=== PATIENT | female | born 1945 | race Caucasian/White ===

== ENCOUNTER 2017-04-08 13:02 | Inpatient (IN) | payer MEDICARE ==
[2017-04-08] VITALS (20 sets, daily range): BP systolic 88–202; BP diastolic 53–108; PULSE 85–171; RESP 16–24; TEMP 98.8; O2SAT 88–100
[~2017-04-08] VITALS: Ht 160 cm; Wt 57.2 kg
[2017-04-08] MEDS ORDERED: methylPREDNISolone SOD SUCC 125 MG/2 ML VIAL IV PUSH ONE (13:15)
[2017-04-08] MEDS: RESP: ALBUTEROL 2.5 MG/IPRATROPIUM 0.5 MG NEB (SCH) INH ×5 (13:15→19:26)
[2017-04-08] MEDS ORDERED: SODIUM CHLORIDE 0.9% FLUSH 10 ML FLUSH IVF PRN (13:15)
[2017-04-08] MEDS ORDERED: SUCCINYLCHOLINE CHLORIDE 100 MG/5 ML SYRINGE IV PUSH ONE (13:15)
[2017-04-08] MEDS ORDERED: ETOMIDATE 20 MG/10 ML VIAL IV PUSH ONE (13:15)
--- NOTE | 2017-04-08 13:15 | PD ---
HPI Chief Complaint: Respiratory Distress Time Seen by Provider: 13:06 Travel History International Travel<30 days: No Contact w/Intl Traveler<30days: No Traveled to known affect area: No History of Present Illness HPI The patient is approximately a 72-year-old female who presents to the emergency department via EMS for shortness of breath. EMS states they received a call for shortness of breath and when they arrived the patient was tripoding with audible wheezing. They state when they place the patient in the ambulance she went unconscious any assisted ventilations with bag valve mask. Upon arrival the patient has her eyes closed, nonverbal, with agonal respirations. No further information is obtainable from the patient. EMS believes the patient has a history of COPD. [facility] Past Medical History Medical History: Unable to Obtain COPD: Yes Respiratory: Yes (COPD) Past Surgical History Surgical History: Unable to Obtain Social History Alcohol Use: No Tobacco Use: No Substance Use: No Allergies-Medications (Allergen,Severity, Reaction): Coded Allergies: No Allergy Information Available (Unverified , 04/08/17) Intubated Reported Meds & Prescriptions Reported Meds & Active Scripts Active Active Prescriptions or Reported Medications Unobtainable Review of Systems ROS Limitations: Clinical Condition, Altered Mental Status Except as stated in HPI: all other systems reviewed are Neg Respiratory: Positive: Shortness of Breath Physical Exam Narrative GENERAL: Eyes closed, nonverbal, 72-year-old female with agonal respirations. SKIN: Focused skin assessment warm/dry. HEAD: Atraumatic. Normocephalic. EYES: Pupils equal and round. 2 mm bilateral. ENT: No nasal bleeding or discharge. Upper dentures in place. NECK: Trachea midline. No JVD. CARDIOVASCULAR: Irregularly irregular, tachycardic with a heart rate in the 130s. Pacemaker/AICD in place left chest wall. RESPIRATORY: Agonal respirations with prolonged expiratory phase, wheezes, and rhonchi noted in the bases. GASTROINTESTINAL: Abdomen distended and tympanic. MUSCULOSKELETAL: No obvious deformities. No clubbing. No cyanosis. No edema. NEUROLOGICAL: Eyes closed, nonverbal, not following commands. PSYCHIATRIC: Unable to evaluate. Data Data Last Documented VS Vital Signs Date Time Temp Pulse Resp B/P (MAP) Pulse Ox O2 Delivery O2 Flow Rate FiO2 04/08/17 14:29 100 20 117/94 (102) 100 Ventilator 04/08/17 13:20 100 Orders Orders Complete Blood Count With Diff (04/08/17 13:06) Comprehensive Metabolic Panel (04/08/17 13:06) B-Type Natriuretic Peptide (04/08/17 13:06) Act Partial Throm Time (Ptt) (04/08/17 13:06) Prothrombin Time / Inr (Pt) (04/08/17 13:06) Magnesium (Mg) (04/08/17 13:06) Ckmb (Isoenzyme) Profile (04/08/17 13:06) Troponin I (04/08/17 13:06) Arterial Blood Gas (Abg) (04/08/17 13:06) Influenzae A/B Antigen (04/08/17 13:06) Blood Culture (04/08/17 13:06) Iv Access Insert/Monitor (04/08/17 13:06) Electrocardiogram (04/08/17 13:06) Ecg Monitoring (04/08/17 13:06) Oximetry (04/08/17 13:06) Oxygen Administration (04/08/17 13:06) Chest, Single Ap (04/08/17 13:06) Sodium Chloride 0.9% Flush (Ns Flush) (04/08/17 13:15) Methylprednisolone So Succ Inj (Solumedr (04/08/17 13:15) Albuterol-Ipratropium Neb (Duoneb Neb) (04/08/17 13:15) Propofol 1000 Mg/100 Ml Inj (Diprivan 10 (04/08/17 13:15) Etomidate Inj (Amidate Inj) (04/08/17 13:15) Succinylcholine Inj (Quelicin Inj) (04/08/17 13:15) Jarvis-Gastric Tube Insert/Mon (04/08/17 13:06) Urinary Catheter Insert/Apply (04/08/17 13:06) Lactic Acid (04/08/17 13:15) Diltiazem Inj (Cardizem Inj) (04/08/17 14:00) Diltiazem Inj (Cardizem Inj) (04/08/17 14:00) Sodium Chloride 0.9% Flush (Ns Flush) (04/08/17 14:00) Admit Order (Ed Use Only) (04/08/17 14:39) Labs Laboratory Tests Test 04/08/17 13:30 04/08/17 13:32 04/08/17 14:10 White Blood Count 10.5 TH/MM3 Red Blood Count 4.76 MIL/MM3 Hemoglobin 13.4 GM/DL Hematocrit 42.0 % Mean Corpuscular Volume 88.4 FL Mean Corpuscular Hemoglobin 28.3 PG Mean Corpuscular Hemoglobin Concent 32.0 % Red Cell Distribution Width 13.6 % Platelet Count 229 TH/MM3 Mean Platelet Volume 10.3 FL Neutrophils (%) (Auto) 60.3 % Lymphocytes (%) (Auto) 26.2 % Monocytes (%) (Auto) 11.1 % Eosinophils (%) (Auto) 1.1 % Basophils (%) (Auto) 1.3 % Neutrophils # (Auto) 6.3 TH/MM3 Lymphocytes # (Auto) 2.8 TH/MM3 Monocytes # (Auto) 1.2 TH/MM3 Eosinophils # (Auto) 0.1 TH/MM3 Basophils # (Auto) 0.1 TH/MM3 CBC Comment DIFF FINAL Differential Comment Prothrombin Time 10.7 SEC Prothromb Time International Ratio 1.1 RATIO Activated Partial Thromboplast Time 26.4 SEC Blood Urea Nitrogen 14 MG/DL Creatinine 0.97 MG/DL Random Glucose 269 MG/DL Total Protein 7.2 GM/DL Albumin 3.3 GM/DL Calcium Level 8.2 MG/DL Magnesium Level 2.2 MG/DL Alkaline Phosphatase 104 U/L Aspartate Amino Transf (AST/SGOT) 57 U/L Alanine Aminotransferase (ALT/SGPT) 38 U/L Total Bilirubin 0.2 MG/DL Sodium Level 133 MEQ/L Potassium Level 4.2 MEQ/L Chloride Level 99 MEQ/L Carbon Dioxide Level 22.5 MEQ/L Anion Gap 12 MEQ/L Estimat Glomerular Filtration Rate 49 ML/MIN Total Creatine Kinase 83 U/L Troponin I 0.02 NG/ML B-Type Natriuretic Peptide 274 PG/ML Lactic Acid Level 5.9 mmol/L Blood Gas Puncture Site LT RADIAL Blood Gas Patient Temperature 98.6 Blood Gas HCO3 20 mmol/L Blood Gas Base Excess -7.4 mmol/L Blood Gas Oxygen Saturation 97 % Arterial Blood pH 7.14 Arterial Blood Partial Pressure CO2 63 mmHG Arterial Blood Partial Pressure O2 320 mmHG Arterial Blood Oxygen Content 18.8 Vol % Arterial Blood Carboxyhemoglobin 1.3 % Arterial Blood Methemoglobin 0.8 % Blood Gas Hemoglobin 13.2 G/DL Oxygen Delivery Device VENTILATOR Blood Gas Ventilator Setting 12/450/PEEP 5 Blood Gas Inspired Oxygen 100 % [facility] Medical Decision Making Medical Screen Exam Complete: Yes Emergency Medical Condition: Yes Medical Record Reviewed: Yes Interpretation(s) EKG reveals atrial fibrillation with a heart rate of 142, RVR. Q wave noted in lead V1 and V2. Chest x-ray reveals lungs are grossly intact. Endotracheal tube in good position. Pacemaker in good position. Last Impressions Chest X-Ray 04/08/17 1306 Signed Impressions: Service Date/Time: March 13:16 - CONCLUSION: Lungs are grossly intact. ET tube in good position. Pacemaker good position. Danielito Trinidad MD Laboratory Tests Test 04/08/17 13:30 04/08/17 13:32 04/08/17 14:10 White Blood Count 10.5 TH/MM3 Red Blood Count 4.76 MIL/MM3 Hemoglobin 13.4 GM/DL Hematocrit 42.0 % Mean Corpuscular Volume 88.4 FL Mean Corpuscular Hemoglobin 28.3 PG Mean Corpuscular Hemoglobin Concent 32.0 % Red Cell Distribution Width 13.6 % Platelet Count 229 TH/MM3 Mean Platelet Volume 10.3 FL Neutrophils (%) (Auto) 60.3 % Lymphocytes (%) (Auto) 26.2 % Monocytes (%) (Auto) 11.1 % Eosinophils (%) (Auto) 1.1 % Basophils (%) (Auto) 1.3 % Neutrophils # (Auto) 6.3 TH/MM3 Lymphocytes # (Auto) 2.8 TH/MM3 Monocytes # (Auto) 1.2 TH/MM3 Eosinophils # (Auto) 0.1 TH/MM3 Basophils # (Auto) 0.1 TH/MM3 CBC Comment DIFF FINAL Differential Comment Prothrombin Time 10.7 SEC Prothromb Time International Ratio 1.1 RATIO Activated Partial Thromboplast Time 26.4 SEC Blood Urea Nitrogen 14 MG/DL Creatinine 0.97 MG/DL Random Glucose 269 MG/DL Total Protein 7.2 GM/DL Albumin 3.3 GM/DL Calcium Level 8.2 MG/DL Magnesium Level 2.2 MG/DL Alkaline Phosphatase 104 U/L Aspartate Amino Transf (AST/SGOT) 57 U/L Alanine Aminotransferase (ALT/SGPT) 38 U/L Total Bilirubin 0.2 MG/DL Sodium Level 133 MEQ/L Potassium Level 4.2 MEQ/L Chloride Level 99 MEQ/L Carbon Dioxide Level 22.5 MEQ/L Anion Gap 12 MEQ/L Estimat Glomerular Filtration Rate 49 ML/MIN Total Creatine Kinase 83 U/L Troponin I 0.02 NG/ML B-Type Natriuretic Peptide 274 PG/ML Lactic Acid Level 5.9 mmol/L Blood Gas Puncture Site LT RADIAL Blood Gas Patient Temperature 98.6 Blood Gas HCO3 20 mmol/L Blood Gas Base Excess -7.4 mmol/L Blood Gas Oxygen Saturation 97 % Arterial Blood pH 7.14 Arterial Blood Partial Pressure CO2 63 mmHG Arterial Blood Partial Pressure O2 320 mmHG Arterial Blood Oxygen Content 18.8 Vol % Arterial Blood Carboxyhemoglobin 1.3 % Arterial Blood Methemoglobin 0.8 % Blood Gas Hemoglobin 13.2 G/DL Oxygen Delivery Device VENTILATOR Blood Gas Ventilator Setting 12/450/PEEP 5 Blood Gas Inspired Oxygen 100 % Date/Time Source Procedure Growth Status 04/08/17 13:32 Blood Peripheral Aerobic Blood Culture Pending Received 04/08/17 13:32 Blood Peripheral Anaerobic Blood Culture Pending Received 04/08/17 13:30 Blood Peripheral Aerobic Blood Culture Pending Received 04/08/17 13:30 Blood Peripheral Anaerobic Blood Culture Pending Received 04/08/17 13:40 Nasal Aspirate Influenza Types A,B Antigen (VENANCIO) - Final NEGATIVE FOR FLU A AND B ANTIGEN.... Complete Differential Diagnosis Differential diagnosis includes COPD exacerbation, pneumothorax, hemothorax, pulmonary embolism, congestive heart failure, pleural effusion, pulmonary edema , lung carcinoma, cardiomyopathy. Narrative Course IV was established, labs are drawn and sent, the patient was placed on cardiac telemetry monitoring and continuous pulse oximetry monitoring. The patient was intubated using rapid sequence intubation with etomidate and succinylcholine. The patient was intubated with a 7.5 endotracheal tube, 22 cm at the right lip. Postintubation chest x-ray was obtained. Influenza screen, blood culture, lactic acid were sent to lab. The patient was administered Solu-Medrol 125 g intravenously and duo nebs 3 with ventilator. I had a discussion with the patient's , the patient's name is Roxanna Harris. The patient does have a history of COPD, lung cyst, and has been intubated in the past, last time she was intubated was February 2016. The patient is followed by her primary physician, Dr. Aleksandr Dumont, and her roustabout crew pusher, Dr. Johnston. The patient does continue to smoke according to the patient's . The states that the patient had cough and cold symptoms that started yesterday with a runny nose and cough, had an appointment this morning with a physician, however, was unable to make her appointment. The patient was in A. fib with RVR, blood pressure was elevated. The patient was administered Cardizem and placed on a Cardizem drip. 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 Mcmanus. She also has a previous history of stage IV breast cancer which was via ER/OK negative, and HER-s/linda positive for which she underwent adjuvant chemotherapy and radiation treatment after lumpectomy which was delivered at [facility]. The patient's lactic acid is elevated, most likely secondary to hypoxia. Influenza screen was negative. Chest x-ray reveals hyperinflation but no evidence of pneumonia. A call was placed to the on-call top and trim worker for admission. Critical Care Narrative Aggregate critical care time was 45 minutes. Time to perform other separately billable procedures was not included in the critical care time. My time did not include minutes spent treating any other patients simultaneously or on activities that did not directly contribute to the patient's treatment. The services I provided to this patient were to treat and/or prevent clinically significant deterioration that could result in: Anoxia, hypoxia, aspiration, arrhythmia, . I provided critical care services requiring my management, as noted below: Chart data review, documentation time, medication orders and management, vital sign assessments/reviewing monitor data, ordering and reviewing lab tests, ordering and interpreting/reviewing x-rays and diagnostic studies, care of the patient and discussion of the patient with the admitting physicians. Procedures Procedure Narrative INTUBATION: The patient was put in optimal position for the procedure. Rapid sequence intubation was initiated by me using 20 milligrams of etomidate IV and 100 milligrams of succinylcholine IV. The patient was intubated with a 7.5 cuffed endotracheal tube. Tube placement was confirmed by visualization of the tube and balloon passing through the cords, capnometry and subsequent chest x- ray. Breath sounds were equal and well aerated bilaterally postintubation. No breath sounds over stomach. Patient tolerated procedure well. Physician Communication Physician Communication The on-call top and trim worker was paged for admission. Diagnosis Primary Impression: Respiratory failure Qualified Codes: J96.01 - Acute respiratory failure with hypoxia Admitting Information Admitting Physician Requests: Admit Scripts Unable to Obtain Active Prescriptions or Reported Meds Condition: Critical Cezar Keita MD Apr 08, 2017 13:14
--- NOTE | 2017-04-08 13:27 | RADRPT ---
EXAM DATE/TIME: 04/08/2017 13:16 [place] COMPARISON: No previous studies available for comparison. INDICATIONS : Post intubation. MEDICAL HISTORY : Chronic obstructive pulmonary disease. Carcinoma, lung. SURGICAL HISTORY : Pacemaker. ENCOUNTER: Initial ACUITY: 1 day PAIN SCORE: Non-responsive. LOCATION: Bilateral chest FINDINGS: A single view of the chest demonstrates a left subclavian pacer in good position. The endotracheal tu be is in good position. Mild diffuse hyperinflation and diffuse interstitial prominence without pneum othorax. The cardiomediastinal contours are unremarkable. Osseous structures are intact. CONCLUSION: Lungs are grossly intact. ET tube in good position. Pacemaker good position. Danielito Trinidad MD on April 08, 2017 at 13:24 Board Certified Radiologist. This report was verified electronically.
[2017-04-08 13:40] LABS: AUTOMATED NEUTROPHIL # 6.3 TH/MM3 (1.8-7.7); BASOPHIL # 0.1 TH/MM3 (0-0.2); BASOPHIL % 1.3 % (0.0-2.0); EOSINOPHIL # 0.1 TH/MM3 (0-0.4); EOSINOPHIL % 1.1 % (0.0-4.0); HEMOGLOBIN 13.4 GM/DL (11.6-15.3); LYMPH % 26.2 % (9.0-44.0); LYMPHOCYTE # 2.8 TH/MM3 (1.0-4.8); MEAN CELL VOLUME 88.4 FL (80.0-100.0); MEAN CORPUSCULAR HEMOGLOBIN 28.3 PG (27.0-34.0); MEAN PLATELET VOLUME 10.3 FL (7.0-11.0); MONO % 11.1 % (0.0-8.0); MONOCYTE # 1.2 TH/MM3 (0-0.9); NEUT % 60.3 % (16.0-70.0); PLATELET COUNT 229 TH/MM3 (150-450); RED BLOOD COUNT 4.76 MIL/MM3 (4.00-5.30); RED CELL DISTRIBUTION WIDTH 13.6 % (11.6-17.2); WHITE BLOOD COUNT 10.5 TH/MM3 (4.0-11.0)
[2017-04-08 13:48] LABS: CHLORIDE 99 MEQ/L (98-107); SODIUM (NA) 133 MEQ/L (136-145)
[2017-04-08 13:51] LABS: CALCIUM 8.2 MG/DL (8.5-10.1)
[2017-04-08 13:52] LABS: ALBUMIN 3.3 GM/DL (3.4-5.0); BICARBONATE 22.5 MEQ/L (21.0-32.0); BLOOD UREA NITROGEN 14 MG/DL (7-18); GLUCOSE,RANDOM 269 MG/DL (74-106); MAGNESIUM 2.2 MG/DL (1.5-2.5)
[2017-04-08 13:53] LABS: INTERNATIONAL NORMALIZED RATIO 1.1 RATIO; PROTHROMBIN TIME - PATIENT 10.7 SEC (9.8-11.6)
[2017-04-08 13:55] LABS: ALT (GPT) 38 U/L (10-53); AST (GOT) 57 U/L (15-37); CREATININE 0.97 MG/DL (0.50-1.00); GLOMERULAR FILTRATION RATE 49 ML/MIN (>89)
[2017-04-08 13:56] LABS: TOTAL BILIRUBIN ADULT 0.2 MG/DL (0.2-1.0); TOTAL PROTEIN 7.2 GM/DL (6.4-8.2)
[2017-04-08] MEDS: PROPOFOL 1000 MG/100 ML INJ 100 ML IV PRN (13:56)
[2017-04-08 13:58] LABS: ALKALINE PHOSPHATASE 104 U/L (45-117)
[2017-04-08 14:00] LABS: TROPONIN I 0.02 NG/ML (0.02-0.05)
[2017-04-08] MEDS ORDERED: DILTIAZEM HCL 25 MG/5 ML VIAL IV ONE (14:00)
[2017-04-08] MEDS ORDERED: SODIUM CHLORIDE 0.9% FLUSH 10 ML FLUSH IV FLUSH PRN ×2 (14:00→15:15)
[2017-04-08] MEDS ORDERED: DILTIAZEM INJ 125 MG in SODIUM CHLORIDE 0.9% INJ 100 ML IV PRN (14:00)
[2017-04-08] MEDS ORDERED: POTASSIUM PHOSPHATE MONOBASIC 500 MG TAB PO/TUBE PRN (15:15)
[2017-04-08] MEDS ORDERED: POTASSIUM PHOSPHATE MONOBASIC 500 MG TAB PO PRN (15:15)
[2017-04-08] MEDS ORDERED: POTASSIUM CHLORIDE 25 MEQ EFFERVESCENT TAB PO PRN (15:15)
[2017-04-08] MEDS ORDERED: POTASSIUM CHLOR 40 MEQ PREMIX 100 ML IV PRN ×2 (15:15)
[2017-04-08] MEDS ORDERED: LACTULOSE SYRUP 20 GM/30 ML CUP PO PRN (15:15)
[2017-04-08] MEDS ORDERED: POTASSIUM CHLOR 20 MEQ PREMIX 100 ML IV PRN ×2 (15:15)
[2017-04-08] MEDS ORDERED: MIDAZOLAM HCL 2 MG/2 ML VIAL IV PUSH PRN (15:15)
[2017-04-08] MEDS ORDERED: BISACODYL 10 MG SUPP RECTAL PRN (15:15)
[2017-04-08] MEDS ORDERED: MAGNESIUM SULFATE INJ 4 GM in SODIUM CHLORIDE 0.9% INJ 92 ML IV PRN (15:15)
[2017-04-08] MEDS ORDERED: SODIUM PHOSPHATE INJ 30 MMOL in SODIUM CHLOR 0.9% 250 ML INJ 240 ML IV PRN (15:15)
[2017-04-08] MEDS ORDERED: POTASSIUM PHOSPHATE INJ 30 MMOL in SODIUM CHLOR 0.9% 250 ML INJ 250 ML IV PRN (15:15)
[2017-04-08] MEDS ORDERED: MAGNESIUM OXIDE 400 MG TAB PO PRN (15:15)
[2017-04-08] MEDS ORDERED: LORazepam 2 MG/ML VIAL IV PUSH PRN (15:15)
[2017-04-08] MEDS ORDERED: MISCELLANEOUS NURSING INFORMATION XX SCH (15:15)
[2017-04-08] MEDS ORDERED: MAGNESIUM SULFATE INJ 2 GM in SODIUM CHLORIDE 0.9% INJ 96 ML IV PRN (15:15)
[2017-04-08] MEDS ORDERED: CHLORHEXIDINE GLUCONATE 2 % 1 PACK (2 CLOTHS) TOP PRN (15:15)
[2017-04-08] MEDS ORDERED: SODIUM CHLOR 0.9% 1000 ML INJ 1,000 ML IV ONE (15:30)
[2017-04-08] MEDS: RESP: ACETYLCYSTEINE 20% 30 ML NEB NEB SCH (16:00)
[2017-04-08] MEDS ORDERED: DEXTROSE 50% IN WATER 50 ML VIAL(D50) IV PUSH PRN (16:15)
[2017-04-08] MEDS ORDERED: GLUCAGON 1 MG/ML VIAL OTHER PRN (16:15)
[2017-04-08] MEDS: SODIUM CHLOR 0.9% 1000 ML INJ 1,000 ML IV SCH (17:07)
--- NOTE | 2017-04-08 17:07 | HHI.HP ---
HPI Service Critical Care Medicine Primary Care Physician No Primary Care Physician Admission Diagnosis respiratory failure, lactic acidosis, COPD exacerbation, A. fib RVR Diagnosis: (1) Acute respiratory failure with hypoxia and hypercapnia Diagnosis: Principal (2) Atrial fibrillation with RVR Diagnosis: Principal (3) Chronic obstructive pulmonary disease Diagnosis: Principal (4) Metabolic acidosis Diagnosis: Principal (5) Lactic acidosis Diagnosis: Principal (6) Hyperglycemia Diagnosis: Principal Chief Complaint: Patient brought to emergency department via EMS for shortness of breath Travel History International Travel<30 Days: No Contact w/Intl Traveler <30 Da: No Traveled to Known Affected Are: No History of Present Illness Is a 72-year-old female who is brought to the emergency department by EMS because of shortness of breath. Patient is intubated and sedated at this time. Information was taken from medical records, nursing staff, ER physician. Records indicate that the patient was tripoding with audible wheeze. When she was in the ambulance he went unconscious and had assist ventilations with bag valve mask. Upon arrival her eyes are closed, she was nonverbal with agonal respirations. Patient was adequately intubated for respiratory support. Upon further evaluation and discussion with the ER physician. The patient's name is Roxanna Harris. Her primary medical doctor Dr. Dumont. Her spool fixer Dr. Rodríguez. Patient has history of COPD, lung status, and has had previous admissions with intubation due to chronic obstructive pulmonary disease exacerbations. The patient does continue to still smoke. Recently she has had a cough with cold symptoms. On presentation the patient was in atrial fibrillation with RVR and patient was administered Cardizem, however heart rate controlled this time. Blood pressure is too low for maintenance of Cardizem drip due to propofol. Will adjust patient to accommodate sedation and blood pressure. ER physician notified critical care team who graciously accepted the patient to their service. Patient be transferred to the main ICU for continued care and management. Review of Systems ROS Limitations: Clinical Condition, Intubated, Poor Historian Ears, nose, mouth, throat: COMPLAINS OF: Running Nose Respiratory: COMPLAINS OF: Cough, Wheezing, Shortness of breath Past Family Social History Allergies: Coded Allergies: No Allergy Information Available (Unverified , 04/08/17) Intubated Past Medical History Information was taken from medical records due to patient being intubated sedated Chronic obstructive pulmonary disease Atrial fibrillation Pacemaker placement History of bladder cancer History of breast cancer status post radiation and chemotherapy History of uncontrolled hypertension Chronic tobacco use Past Surgical History Information taken from medical records Status post breast lumpectomy and lymph node sampling Status post [facility] [facility] pacemaker placement Bladder surgery for cancer Cholecystectomy Tonsillectomy Right shoulder surgery Reported Medications Home medications are unobtainable at this time Family History Records do not indicate any pertinent family history Social History Records indicate patient still smoking a proctoscopy 5 cigarettes daily. There is no indication of any alcohol or illicit drugs Physical Exam Vital Signs Vital Signs Date Time Temp Pulse Resp B/P (MAP) Pulse Ox O2 Delivery O2 Flow Rate FiO2 04/08/17 16:34 91 110/62 (78) 04/08/17 16:13 101 100/58 (72) 04/08/17 16:04 103 97/55 (69) 04/08/17 15:35 129 106/68 (81) 04/08/17 15:27 149 113/65 04/08/17 15:22 137 113/65 (81) 04/08/17 14:50 100 22 100/70 (80) 100 Ventilator 04/08/17 14:29 100 20 117/94 (102) 100 Ventilator 04/08/17 14:18 100 Ventilator 04/08/17 14:17 100 04/08/17 14:14 128 20 114/72 (86) 100 Ventilator 04/08/17 13:20 99 100 04/08/17 13:07 88 04/08/17 13:05 171 202/108 (139) 88 Physical Exam GENERAL: Well-developed, cachectic, in respiratory distress, patient easily aroused even though sedated. HEENT: Head is normocephalic without any lesions or masses noted. Facial features are symmetric. Eyes: Pupils equal round reactive to light. Extraocular muscles are intact. Conjunctivae were clear. Orally intubated NECK: Supple without any masses. Trachea midline no deviation. No JVD, no bruits are appreciated CARDIAC: Regular rhythm, regular rate. S1/S2 are heard. No murmurs gallops or rubs. LUNGS: Diminished breath sounds noted throughout. No wheeze, rhonchi or rales. Patient still with mild abdominal breathing despite ventilator management ABDOMEN: Soft, nontender. Nondistended. Bowel sounds heard in all 4 quadrants. No organomegaly or masses. Negative rebound, negative guarding EXTREMITIES: No edema, pulses are equal bilaterally. No cyanosis or clubbing. NEUROLOGY: Patient is intubated and sedated with rest -2. Patient retract to painful stimuli Laboratory Laboratory Tests Test 04/08/17 13:30 04/08/17 13:32 04/08/17 14:10 04/08/17 15:48 White Blood Count 10.5 Red Blood Count 4.76 Hemoglobin 13.4 Hematocrit 42.0 Mean Corpuscular Volume 88.4 Mean Corpuscular Hemoglobin 28.3 Mean Corpuscular Hemoglobin Concent 32.0 Red Cell Distribution Width 13.6 Platelet Count 229 Mean Platelet Volume 10.3 Neutrophils (%) (Auto) 60.3 Lymphocytes (%) (Auto) 26.2 Monocytes (%) (Auto) 11.1 Eosinophils (%) (Auto) 1.1 Basophils (%) (Auto) 1.3 Neutrophils # (Auto) 6.3 Lymphocytes # (Auto) 2.8 Monocytes # (Auto) 1.2 Eosinophils # (Auto) 0.1 Basophils # (Auto) 0.1 CBC Comment DIFF FINAL Differential Comment Prothrombin Time 10.7 Prothromb Time International Ratio 1.1 Activated Partial Thromboplast Time 26.4 Blood Urea Nitrogen 14 Creatinine 0.97 Random Glucose 269 Total Protein 7.2 Albumin 3.3 Calcium Level 8.2 Magnesium Level 2.2 Alkaline Phosphatase 104 Aspartate Amino Transf (AST/SGOT) 57 Alanine Aminotransferase (ALT/SGPT) 38 Total Bilirubin 0.2 Sodium Level 133 Potassium Level 4.2 Chloride Level 99 Carbon Dioxide Level 22.5 Anion Gap 12 Estimat Glomerular Filtration Rate 49 Total Creatine Kinase 83 Troponin I 0.02 B-Type Natriuretic Peptide 274 Lactic Acid Level 5.9 Blood Gas Puncture Site LT RADIAL LT RADIAL Blood Gas Patient Temperature 98.6 98.6 Blood Gas HCO3 20 22 Blood Gas Base Excess -7.4 -3.0 Blood Gas Oxygen Saturation 97 88 Arterial Blood pH 7.14 7.31 Arterial Blood Partial Pressure CO2 63 45 Arterial Blood Partial Pressure O2 320 64 Arterial Blood Oxygen Content 18.8 15.8 Arterial Blood Carboxyhemoglobin 1.3 1.7 Arterial Blood Methemoglobin 0.8 0.9 Blood Gas Hemoglobin 13.2 12.8 Oxygen Delivery Device VENTILATOR VENTILATOR Blood Gas Ventilator Setting 12/450/PEEP 5 AC/16/450/5PEE Blood Gas Inspired Oxygen 100 60 Date/Time Source Procedure Growth Status 04/08/17 13:32 Blood Peripheral Aerobic Blood Culture Pending Received 04/08/17 13:32 Blood Peripheral Anaerobic Blood Culture Pending Received 04/08/17 16:21 Sputum Endotracheal Gram Stain Pending Received 04/08/17 16:21 Sputum Endotracheal Sputum Culture Pending Received Result Diagram: 04/08/17 1330 04/08/17 1330 Imaging Last Impressions Chest X-Ray 04/08/17 1306 Signed Impressions: Service Date/Time: March 13:16 - CONCLUSION: Lungs are grossly intact. ET tube in good position. Pacemaker good position. MD Jolanta Cedeno VTE Risk Assessment Capkatie VTE Risk Assessment: Mod/High Risk (score >= 2) Caprini Risk Assessment Model Point Value = 1 Point Value = 2 Point Value = 3 Point Value = 5 Age 41-60 Minor surgery BMI > 25 kg/m2 Swollen legs Varicose veins or History of unexplained or recurrent spontaneous Oral contraceptives or hormone replacement Sepsis (< 1 month) Serious lung disease, including pneumonia (< 1 month) Abnormal pulmonary function Acute myocardial infarction Congestive heart failure (< 1 month) History of inflammatory bowel disease Medical patient at bed rest Age 61-74 Arthroscopic surgery Major open surgery (> 45 min) Laparoscopic surgery (> 45 min) Malignancy Confined to bed (> 72 hours) Immobilizing plaster cast Central venous access Age >= 75 History of VTE Family history of VTE Factor V Leiden Prothrombin [id number] Lupus anticoagulant Anticardiolipin antibodies Elevated serum homocysteine Heparin-induced thrombocytopenia Other congenital or acquired thrombophilia Stroke (< 1 month) Elective arthroplasty Hip, pelvis, or leg fracture Acute spinal cord injury (< 1 month) Prophylaxis Regimen Total Risk Factor Score Risk Level Prophylaxis Regimen 0-1 Low Early ambulation 2 Moderate Order ONE of the following: *Sequential Compression Device (SCD) *Heparin 5000 units SQ BID 3-4 Higher Order ONE of the following medications: *Heparin 5000 units SQ TID *Enoxaparin/Lovenox 40 mg SQ daily (WT < 150 kg, CrCl > 30 mL/min) *Enoxaparin/Lovenox 30 mg SQ daily (WT < 150 kg, CrCl > 10-29 mL/min) *Enoxaparin/Lovenox 30 mg SQ BID (WT < 150 kg, CrCl > 30 mL/min) AND/OR *Sequential Compression Device (SCD) 5 or more Highest Order ONE of the following medications: *Heparin 5000 units SQ TID (Preferred with Epidurals) *Enoxaparin/Lovenox 40 mg SQ daily (WT < 150 kg, CrCl > 30 mL/min) *Enoxaparin/Lovenox 30 mg SQ daily (WT < 150 kg, CrCl > 10-29 mL/min) *Enoxaparin/Lovenox 30 mg SQ BID (WT < 150 kg, CrCl > 30 mL/min) AND *Sequential Compression Device (SCD) Assessment and Plan Problem List: (1) Acute respiratory failure with hypoxia and hypercapnia ICD Code: J96.01 - Acute respiratory failure with hypoxia; J96.02 - Acute respiratory failure with hypercapnia (2) Chronic obstructive pulmonary disease ICD Code: J44.9 - Chronic obstructive pulmonary disease, unspecified (3) Metabolic acidosis ICD Code: E87.2 - Acidosis (4) Lactic acidosis ICD Code: E87.2 - Acidosis (5) Atrial fibrillation with RVR ICD Code: I48.91 - Unspecified atrial fibrillation (6) Hyperglycemia ICD Code: R73.9 - Hyperglycemia, unspecified Assessment and Plan NEUROLOGY Propofol and fentanyl for sedation Titrate to maintain rest -2 Daily sedation medications PULMONOLOGY Acute hypoxic/hypercapnic respiratory failure Chronic obstructive pulmonary disease AC ventilation 12/450/5+/100% Wean FiO2 to maintain O2 sats greater than 92% Duo nebs every 4 hours and every 2 hours as needed Mucomyst every 6 hours Solu-Medrol 40 mg every 8 hours Ventilator bundle Daily spontaneous breathing trial CARDIOLOGY Atrial fibrillation with RVR Hypertension Blood pressure low this time secondary to propofol, fentanyl started to help with blood pressure management Cardizem was started for rate control. Rate is much improved at this time. Nursing staff will need to obtain accurate medication list so he can resume appropriately when it is time GASTROENTEROLOGY OG tube was placed Start tube feeding Pepcid for GI protection Bowel regimen GENITOURINARY Hyponatremia Insert Lr for accurate input and output ICU electrolyte replacement protocol INFECTIOUS DISEASE Lactic acidosis, likely secondary to respiratory failure Continue to trend lactic acid level Patient started on Levaquin Blood cultures are pending Influenza testing is negative Sputum culture is pending ENDOCRINOLOGY Hyperglycemia Most recent hemoglobin A1c was 5.9 in February 2016 Accu-Cheks with sliding scale insulin HEMATOLOGY Continue monitor hemoglobin and hematocrit. Transfuse if hemoglobin below 7.0 PROPHYLAXIS DVT prevention with sequential compression devices, subcutaneous heparin GI protection with IV Pepcid LINES Peripheral IVs CODE STATUS Full code Critical care management excluding procedures 60 minutes Karlo Beltran Apr 08, 2017 17:07
[2017-04-08] MEDS: LEVOFLOXACIN 750 MG PREMIX INJ 150 ML IV SCH (17:31)
[2017-04-08 17:44] LABS: LACTIC ACID SEPSIS PROTOCOL 3.4 mmol/L (0.4-2.0)
[2017-04-08] MEDS ORDERED: MAGNESIUM HYDROXIDE SUSP 30 ML CUP PO PRN (21:00)
[2017-04-08] MEDS: DOCUSATE SODIUM 50 MG/SENNA 8.6 MG TAB PO SCH (21:00)
[2017-04-08] MEDS ORDERED: SENNOSIDES 8.6 MG TAB PO PRN (21:00)
[2017-04-08] MEDS: fentaNYL DRIP 250 ML IV PRN (23:00)
[2017-04-09] VITALS (18 sets, daily range): BP systolic 94–129; BP diastolic 51–78; PULSE 59–100; RESP 16–28; TEMP 98.3–99; O2SAT 95–100
[2017-04-09] MEDS: RESP: ALBUTEROL 2.5 MG/IPRATROPIUM 0.5 MG NEB (SCH) INH ×6 (00:22→19:48)
[2017-04-09] MEDS: RESP: ACETYLCYSTEINE 20% 30 ML NEB NEB SCH ×5 (00:22→20:56)
[2017-04-09 00:47] LABS: PHOSPHORUS 3.7 MG/DL (2.5-4.9)
[2017-04-09 00:50] LABS: TROPONIN I 0.58 NG/ML (0.02-0.05)
[2017-04-09] MEDS: CHLORHEXIDINE 0.12% (ORAL KIT) 15 ML CUP MT SCH ×3 (01:03→20:00)
[2017-04-09] MEDS: ONDANSETRON HCL 4 MG/2 ML VIAL IV PUSH PRN (01:03)
[2017-04-09] MEDS: SODIUM CHLORIDE 0.9% FLUSH 10 ML FLUSH IV FLUSH SCH ×3 (01:04→20:11)
[2017-04-09] MEDS: FAMOTIDINE 20 MG/2 ML VIAL IV PUSH SCH ×3 (01:10→21:00)
[2017-04-09] MEDS: methylPREDNISolone SOD SUCC 40 MG/1 ML VIAL IV PUSH SCH ×4 (01:10→20:10)
[2017-04-09] MEDS: HEPARIN SODIUM - SQ 10,000 UNITS/ML VIAL SQ SCH ×3 (01:13→20:11)
[2017-04-09] MEDS: CHLORHEXIDINE GLUCONATE 2 % 1 PACK (2 CLOTHS) TOP SCH (01:14)
[2017-04-09 02:45] LABS: AUTOMATED NEUTROPHIL # 11.4 TH/MM3 (1.8-7.7); BASOPHIL % 0.1 % (0.0-2.0); HEMATOCRIT 36.7 % (35.0-46.0); HEMOGLOBIN 12.1 GM/DL (11.6-15.3); LYMPH % 1.7 % (9.0-44.0); LYMPHOCYTE # 0.2 TH/MM3 (1.0-4.8); MEAN CELL VOLUME 89.6 FL (80.0-100.0); MEAN CORPUSCULAR HEMOGLOBIN 29.4 PG (27.0-34.0); MEAN CORPUSCULAR HGB CONC 32.8 % (32.0-36.0); MEAN PLATELET VOLUME 10.1 FL (7.0-11.0); MONO % 3.2 % (0.0-8.0); MONOCYTE # 0.4 TH/MM3 (0-0.9); PLATELET COUNT 124 TH/MM3 (150-450); RED CELL DISTRIBUTION WIDTH 14.4 % (11.6-17.2)
[2017-04-09 02:58] LABS: ALBUMIN 3.1 GM/DL (3.4-5.0); ALT (GPT) 104 U/L (10-53); AST (GOT) 177 U/L (15-37); BICARBONATE 20.4 MEQ/L (21.0-32.0); BLOOD UREA NITROGEN 24 MG/DL (7-18); CALCIUM 7.8 MG/DL (8.5-10.1); CHLORIDE 108 MEQ/L (98-107); CREATININE 1.07 MG/DL (0.50-1.00); GLOMERULAR FILTRATION RATE 44 ML/MIN (>89); GLUCOSE,RANDOM 203 MG/DL (74-106); MAGNESIUM 1.8 MG/DL (1.5-2.5); PHOSPHORUS 4.3 MG/DL (2.5-4.9); SODIUM (NA) 140 MEQ/L (136-145)
[2017-04-09] MEDS: SODIUM CHLOR 0.9% 1000 ML INJ 1,000 ML IV SCH (02:59)
[2017-04-09 03:00] LABS: ALKALINE PHOSPHATASE 93 U/L (45-117); TOTAL BILIRUBIN ADULT 0.2 MG/DL (0.2-1.0); TOTAL PROTEIN 6.5 GM/DL (6.4-8.2)
[2017-04-09] MEDS: INSULIN NovoLIN REGULAR SUPPLEMENTAL SCALE SQ SCH ×6 (04:00→20:14)
--- NOTE | 2017-04-09 08:09 | EKG ---
Date Performed: 04/08/2017 Time Performed: 13:46:22 PTAGE: 89 years EKG: ATRIAL FIBRILLATION WITH RAPID VENTRICULAR RESPONSE MARKED LEFT AXIS DEVIATION SEPTAL MYOCA RDIAL INFARCTION Nonspecific ST and T wave abnormalities ABNORMAL ECG NO PREVIOUS TRACING DOCTOR: Vicente Colbert Interpretating Date/Time 04/09/2017 08:08:37
[2017-04-09] MEDS: DOCUSATE SODIUM 50 MG/SENNA 8.6 MG TAB PO SCH ×2 (08:22→21:00)
--- NOTE | 2017-04-09 09:53 | HHI.CCPN ---
Subjective Remarks/Hospital Course Is a 72-year-old female who is brought to the emergency department by EMS because of shortness of breath. Patient is intubated and sedated at this time. Information was taken from medical records, nursing staff, ER physician. Records indicate that the patient was tripoding with audible wheeze. When she was in the ambulance he went unconscious and had assist ventilations with bag valve mask. Upon arrival her eyes are closed, she was nonverbal with agonal respirations. Patient was adequately intubated for respiratory support. Upon further evaluation and discussion with the ER physician. The patient's name is Roxanna Harris. Her primary medical doctor Dr. Dumont. Her pediatric cns Dr. Rodríguez. Patient has history of COPD, lung status, and has had previous admissions with intubation due to chronic obstructive pulmonary disease exacerbations. The patient does continue to still smoke. Recently she has had a cough with cold symptoms. On presentation the patient was in atrial fibrillation with RVR and patient was administered Cardizem, however heart rate controlled this time. Blood pressure is too low for maintenance of Cardizem drip due to propofol. Will adjust patient to accommodate sedation and blood pressure. ER physician notified critical care team who graciously accepted the patient to their service. Patient be transferred to the main ICU for continued care and management. 04/09 Patient is on Diprivan and Fentanyl drip however she is awake. Afebrile. On Cardizem drip 5mg/hr Objective Vital Signs Date Time Temp Pulse Resp B/P (MAP) Pulse Ox O2 Delivery O2 Flow Rate FiO2 04/09/17 07:34 40 04/09/17 07:34 100 04/09/17 06:00 59 04/09/17 04:00 98.5 24 110/57 (74) 04/08/17 21:10 Ventilator Result Diagram: 04/09/17 0233 04/09/17 0233 Other Results Laboratory Tests Test 04/08/17 13:30 04/08/17 13:32 04/08/17 14:10 04/08/17 15:48 White Blood Count 10.5 TH/MM3 Red Blood Count 4.76 MIL/MM3 Hemoglobin 13.4 GM/DL Hematocrit 42.0 % Mean Corpuscular Volume 88.4 FL Mean Corpuscular Hemoglobin 28.3 PG Mean Corpuscular Hemoglobin Concent 32.0 % Red Cell Distribution Width 13.6 % Platelet Count 229 TH/MM3 Mean Platelet Volume 10.3 FL Neutrophils (%) (Auto) 60.3 % Lymphocytes (%) (Auto) 26.2 % Monocytes (%) (Auto) 11.1 % Eosinophils (%) (Auto) 1.1 % Basophils (%) (Auto) 1.3 % Neutrophils # (Auto) 6.3 TH/MM3 Lymphocytes # (Auto) 2.8 TH/MM3 Monocytes # (Auto) 1.2 TH/MM3 Eosinophils # (Auto) 0.1 TH/MM3 Basophils # (Auto) 0.1 TH/MM3 CBC Comment DIFF FINAL Differential Comment Prothrombin Time 10.7 SEC Prothromb Time International Ratio 1.1 RATIO Activated Partial Thromboplast Time 26.4 SEC Blood Urea Nitrogen 14 MG/DL Creatinine 0.97 MG/DL Random Glucose 269 MG/DL Total Protein 7.2 GM/DL Albumin 3.3 GM/DL Calcium Level 8.2 MG/DL Magnesium Level 2.2 MG/DL Alkaline Phosphatase 104 U/L Aspartate Amino Transf (AST/SGOT) 57 U/L Alanine Aminotransferase (ALT/SGPT) 38 U/L Total Bilirubin 0.2 MG/DL Sodium Level 133 MEQ/L Potassium Level 4.2 MEQ/L Chloride Level 99 MEQ/L Carbon Dioxide Level 22.5 MEQ/L Anion Gap 12 MEQ/L Estimat Glomerular Filtration Rate 49 ML/MIN Total Creatine Kinase 83 U/L Troponin I 0.02 NG/ML B-Type Natriuretic Peptide 274 PG/ML Lactic Acid Level 5.9 mmol/L Blood Gas Puncture Site LT RADIAL LT RADIAL Blood Gas Patient Temperature 98.6 98.6 Blood Gas HCO3 20 mmol/L 22 mmol/L Blood Gas Base Excess -7.4 mmol/L -3.0 mmol/L Blood Gas Oxygen Saturation 97 % 88 % Arterial Blood pH 7.14 7.31 Arterial Blood Partial Pressure CO2 63 mmHG 45 mmHG Arterial Blood Partial Pressure O2 320 mmHG 64 mmHG Arterial Blood Oxygen Content 18.8 Vol % 15.8 Vol % Arterial Blood Carboxyhemoglobin 1.3 % 1.7 % Arterial Blood Methemoglobin 0.8 % 0.9 % Blood Gas Hemoglobin 13.2 G/DL 12.8 G/DL Oxygen Delivery Device VENTILATOR VENTILATOR Blood Gas Ventilator Setting 12/450/PEEP 5 AC/16/450/5PEE Blood Gas Inspired Oxygen 100 % 60 % Test 1/18/18 17:01 04/08/17 18:34 04/08/17 19:10 04/08/17 22:50 Lactic Acid Level 3.4 mmol/L 4.1 mmol/L Troponin I 0.24 NG/ML Blood Gas Puncture Site RT BRACHIAL Blood Gas Patient Temperature 98.6 Blood Gas HCO3 21 mmol/L Blood Gas Base Excess -4.0 mmol/L Blood Gas Oxygen Saturation 97 % Arterial Blood pH 7.34 Arterial Blood Partial Pressure CO2 40 mmHG Arterial Blood Partial Pressure O2 130 mmHG Arterial Blood Oxygen Content 16.1 Vol % Arterial Blood Carboxyhemoglobin 1.4 % Arterial Blood Methemoglobin 0.9 % Blood Gas Hemoglobin 11.6 G/DL Oxygen Delivery Device VENTILATOR Blood Gas Ventilator Setting AC/16/450/5PEEP Blood Gas Inspired Oxygen 65 % Nasal Screen MRSA (PCR) MRSA NOT DETECTED Test 04/08/17 22:54 04/09/17 00:28 04/09/17 02:33 Phosphorus Level 3.7 MG/DL 4.3 MG/DL Troponin I 0.58 NG/ML White Blood Count 12.0 TH/MM3 Red Blood Count 4.10 MIL/MM3 Hemoglobin 12.1 GM/DL Hematocrit 36.7 % Mean Corpuscular Volume 89.6 FL Mean Corpuscular Hemoglobin 29.4 PG Mean Corpuscular Hemoglobin Concent 32.8 % Red Cell Distribution Width 14.4 % Platelet Count 124 TH/MM3 Mean Platelet Volume 10.1 FL Neutrophils (%) (Auto) 95.0 % Lymphocytes (%) (Auto) 1.7 % Monocytes (%) (Auto) 3.2 % Eosinophils (%) (Auto) 0.0 % Basophils (%) (Auto) 0.1 % Neutrophils # (Auto) 11.4 TH/MM3 Lymphocytes # (Auto) 0.2 TH/MM3 Monocytes # (Auto) 0.4 TH/MM3 Eosinophils # (Auto) 0.0 TH/MM3 Basophils # (Auto) 0.0 TH/MM3 CBC Comment DIFF FINAL Differential Comment Blood Urea Nitrogen 24 MG/DL Creatinine 1.07 MG/DL Random Glucose 203 MG/DL Total Protein 6.5 GM/DL Albumin 3.1 GM/DL Calcium Level 7.8 MG/DL Magnesium Level 1.8 MG/DL Alkaline Phosphatase 93 U/L Aspartate Amino Transf (AST/SGOT) 177 U/L Alanine Aminotransferase (ALT/SGPT) 104 U/L Total Bilirubin 0.2 MG/DL Sodium Level 140 MEQ/L Potassium Level 3.6 MEQ/L Chloride Level 108 MEQ/L Carbon Dioxide Level 20.4 MEQ/L Anion Gap 12 MEQ/L Estimat Glomerular Filtration Rate 44 ML/MIN Imaging Last Impressions Chest X-Ray 04/08/17 1306 Signed Impressions: Service Date/Time: March 13:16 - CONCLUSION: Lungs are grossly intact. ET tube in good position. Pacemaker good position. Danielito Trinidad MD Objective Remarks GENERAL: Patient is intubated and sedated SKIN: Warm and dry. HEAD: Normocephalic. EYES: No scleral icterus. No injection or drainage. NECK: Supple, trachea midline. No JVD or lymphadenopathy. CARDIOVASCULAR: Regular rate and rhythm without murmurs, gallops, or rubs. RESPIRATORY: Breath sounds equal bilaterally. No accessory muscle use. GASTROINTESTINAL: Abdomen soft, non-tender, nondistended. MUSCULOSKELETAL: No cyanosis, or edema. Neuro: Intubated A/P Problem List: (1) Acute respiratory failure with hypoxia and hypercapnia ICD Code: J96.01 - Acute respiratory failure with hypoxia; J96.02 - Acute respiratory failure with hypercapnia (2) Chronic obstructive pulmonary disease ICD Code: J44.9 - Chronic obstructive pulmonary disease, unspecified (3) Metabolic acidosis ICD Code: E87.2 - Acidosis (4) Lactic acidosis ICD Code: E87.2 - Acidosis (5) Atrial fibrillation with RVR ICD Code: I48.91 - Unspecified atrial fibrillation (6) Hyperglycemia ICD Code: R73.9 - Hyperglycemia, unspecified Assessment and Plan NEUROLOGY Propofol and fentanyl for sedation Daily sedation medications PULMONOLOGY Acute hypoxic/hypercapnic respiratory failure Chronic obstructive pulmonary disease Cotninue with vent support keep sat >92% 92% Duo nebs every 4 hours and every 2 hours as needed Mucomyst every 6 hours Solu-Medrol 40 mg every 8 hours Ventilator bundle Daily spontaneous breathing trial CARDIOLOGY Mild elevated trop Atrial fibrillation with RVR Hypertension Monitor HR and BP keep MAP>65mmHg Monitor trop, for 2D echo to eval LV function Give ASA 325mg x1, cards eval. Serial lactic acid monitoring till cleared GASTROENTEROLOGY Elevated LFT;s Monitor LFT's, check US liver, Hepatitis profile. OG tube was placed Start tube feeding- Glucerna 1.5 with goal rate 45ml/hr Pepcid for GI protection Bowel regimen GENITOURINARY Hyponatremia Monitor renal function, ICU electrolyte replacement protocol D/C IVF INFECTIOUS DISEASE Continue with Levaquin for COPD exac, Influenza testing is negative Sputum culture is pending 04/08: NGTD ENDOCRINOLOGY Hyperglycemia Accu-Cheks with sliding scale insulin HEMATOLOGY Monitor CBC PROPHYLAXIS DVT prevention with sequential compression devices, subcutaneous heparin GI protection with IV Pepcid LINES Peripheral IVs CODE STATUS Full code Level 3 Karine Huerta MD Apr 09, 2017 09:53
[2017-04-09] MEDS ORDERED: ASPIRIN 325 MG TAB PO ONE (10:00)
[2017-04-09] MEDS ORDERED: RASS Change Order XX ONE ×2 (10:45→11:45)
--- NOTE | 2017-04-09 11:28 | RADRPT ---
EXAM DATE/TIME: 04/09/2017 10:48 [facility] COMPARISON: No previous studies available for comparison. INDICATIONS : Increased lab values. MEDICAL HISTORY : Chronic obstructive pulmonary disease. Hypertension. Dyspnea. Bladder cancer. Breast cancer. Radiat ion therapy. Chemotherapy. Atrial fibrillation. SURGICAL HISTORY : Pacemaker. Cholecystectomy. Tonsillectomy. Lumpectomy. Bladder surgery. Right shoulder surgery. ENCOUNTER: Initial ACUITY: 1 day PAIN SCORE: Nonresponsive. LOCATION: Bilateral upper quadrant MEASUREMENTS: LIVER: 13.3 cm length COMMON DUCT: 6 mm RIGHT KIDNEY: 11.2 x 5.2 x 4.4 cm SPLEEN: 10.2 cm length FINDINGS: Identified is a small right pleural effusion. Patient is status post cholecystectomy with normal intr ahepatic and extrahepatic bile ducts and pancreas as visualized appears normal. There are small cysts of the right kidney cortex benign. Upper pole left kidney 2.1 cm cyst is identified. The liver is graham ggested to be on the small size of the lower limits of normal minimal echogenicity without mass or fo laly defect. CONCLUSION: Surgical absence of gallbladder. Multiple bilateral renal cysts. Liver appears lower limits of normal in size with mildly incre ased echogenicity but no evidence of dilated ducts or focal lesion. small right pleural effusion Wolfgang Dooley MD on April 09, 2017 at 11:23 Board Certified Radiologist. This report was verified electronically.
--- NOTE | 2017-04-09 11:44 | MB ---
cc: ROSANNE LAURA DATE OF CONSULTATION 04/09/2017 DATE OF 1945 REASON FOR CONSULTATION Abnormal troponin level, atrial fibrillation. HISTORY OF PRESENT ILLNESS Limited history is obtained from the patient who is currently intubated, although she is awake and alert. She is a 71-year-old white female, followed in the office by Dr. Francisco Gaffney in [place], with a history of paroxysmal atrial fibrillation, hypertension, COPD, [employer] Rav[employer] pacemaker implant, bladder cancer, breast cancer status post radiation therapy and chemotherapy who was brought to the hospital with increasing shortness of breath. The patient subsequently needed intubation and was placed on mechanical ventilation. The patient states her dyspnea has considerably improved since coming into hospital. She denies any recent chest pain, dizziness, syncope, near-syncope, palpitations, pedal edema, or fevers. The patient does report what sounds like a nonproductive cough. PAST MEDICAL HISTORY As above, no other details currently available. CARDIAC MEDICATIONS Her cardiac medications at home are unknown. FAMILY HISTORY Noncontributory SOCIAL HISTORY The patient smokes a few cigarettes a day. She denies alcohol abuse. REVIEW OF SYSTEMS As in the history of present illness, otherwise negative or noncontributory. She also denies headache, abdominal pain, melena, bright red blood per rectum, dyspepsia. PHYSICAL EXAM On physical examination, her blood pressure is 110/57 with a pulse of 60, respirations 20. GENERAL: She is a well-developed thin white female in no acute distress, currently still intubated. HEENT: Jugular venous pressure is normal. NECK: Carotid pulses are 2+ bilaterally and without bruits. CHEST: Examination of the chest reveals clear lung [place] anteriorly except for a few mild scattered rhonchi. CARDIAC: She has an irregularly irregular rhythm without definite S3 or murmur. ABDOMEN: On abdominal examination, she has a soft, nontender abdomen. Bowel sounds are present. There is no definite hepatosplenomegaly. EXTREMITIES: Examination of extremities reveals no clubbing, cyanosis or edema. EKG shows atrial fibrillation with a rapid ventricular response, septal infarct age undetermined, low QRS voltage in the limb leads, left axis deviation. Chest x-ray shows no acute disease. LABORATORY DATA Includes WBC 12.0, hemoglobin 12.1, platelets 124, potassium 3.6, BUN 24, creatinine 1.07, AST 177, ALT 104, troponin 0.58. IMPRESSION Slightly abnormal troponin levels, atrial fibrillation with a rapid ventricular response in this 71-year-old white female with a history of paroxysmal atrial fibrillation, hypertension, COPD, breast cancer, bladder cancer, history of [employer] Rav[employer] pacemaker implant. At this time, she remains in atrial fibrillation with now controlled heart rates. The chronicity of her atrial fibrillation is not entirely clear. Although her thromboembolic risk is increased, the patient states she declines anticoagulation therapy. She apparently had hemorrhaging problems with Xarelto and possibly Coumadin as well. With respect to the slightly elevated troponin levels, I doubt they are due to acute coronary syndrome. They may be slightly elevated due to the tachyarrhythmia. The elevated heart rates were likely due to respiratory distress. RECOMMENDATIONS 1. Continue pulmonary therapy. 2. Check a 2-D echo to assess her left ventricular function. 3. Would continue daily aspirin. 4. Once she is extubated, we will try to obtain further cardiac history and a list of cardiac medications taken at home. MD HENRY Buck/JEAN /11:18 AM /11:29 AM MENDY
[2017-04-09] MEDS: LEVOFLOXACIN 750 MG PREMIX INJ 150 ML IV SCH (18:00)
[2017-04-09] MEDS: fentaNYL DRIP 250 ML IV PRN (19:05)
--- NOTE | 2017-04-09 19:14 | ECHRPT ---
Indication: ATRIAL FLUTTER CONCLUSIONS The left ventricular systolic function is low normal with an estimated ejection fraction in the rang e of 50- 55%. Normal left ventricular size. Wall thickness is measured at the upper limits of normal. There i s a small to moderate size area of apical akinesis. Trace mitral valve regurgitation. There is trace tricuspid valve regurgitation. The estimated pulmonary arterial pressure is 34.4 mmHg. BP: 110 / 57 HR: 67 Rhythm: Sinus MEASUREMENTS (Male / Female) Normal Values Technical Quality:Fair 2D ECHO LV Diastolic Diameter PLAX 3.9 cm 4.2 - 5.9 / 3.9 - 5.3 cm LV Systolic Diameter PLAX 2.9 cm IVS Diastolic Thickness 1.2 cm 0.6 - 1.0 / 0.6 - 0.9 cm LVPW Diastolic Thickness 1.2 cm 0.6 - 1.0 / 0.6 - 0.9 cm LV Relative Wall Thickness 0.6 RV Internal Dim ED PLAX 3.0 cm LVOT Diameter 1.6 cm LA Systolic Diameter LX 3.9 cm 3.0 - 4.0 / 2.7 - 3.8 cm LV Ejection Fraction MOD 4C 53.0 % LV Cardiac Index MOD 4C 1486.4 cm/minm LV Ejection Fraction 4C AL 54.1 % LV Cardiac Index 4C AL 1572.1 cm/minm M-MODE Aortic Root Diameter MM 2.6 cm LA Systolic Diameter MM 3.9 cm LA Ao Ratio MM 1.5 AV Cusp Separation MM 1.6 cm DOPPLER AV Peak Velocity 147.0 cm/s AV Peak Gradient 8.6 mmHg LVOT Peak Velocity 87.9 cm/s LVOT Peak Gradient 3.1 mmHg AV Area Cont Eq pk 1.2 cm MV Area PHT 4.4 cm LV E' Lateral Velocity 5.9 cm/s LV E' Septal Velocity 4.5 cm/s TR Peak Velocity 247.0 cm/s TR Peak Gradient 24.4 mmHg Right Atrial Pressure 10.0 mmHg Pulmonary Artery Systolic Pressu 34.4 mmHg Right Ventricular Systolic Press 34.4 mmHg PV Peak Velocity 97.7 cm/s PV Peak Gradient 3.8 mmHg FINDINGS LEFT VENTRICLE The left ventricular systolic function is low normal with an estimated ejection fraction in the rang e of 50- 55%. Normal left ventricular size. Wall thickness is measured at the upper limits of normal. There is a small to moderate size area of apical akinesis. RIGHT VENTRICLE Normal right ventricular size and systolic function. LEFT ATRIUM The left atrial size is normal. RIGHT ATRIUM The right atrial size is normal. ATRIAL SEPTUM Normal atrial septal thickness without atrial level shunting by limited color doppler interrogation. AORTA The aortic root and proximal ascending aorta are normal in size on limited imaging. MITRAL VALVE Structurally normal mitral valve. Trace mitral valve regurgitation. AORTIC VALVE Trileaflet aortic valve. No aortic valve stenosis or regurgitation. TRICUSPID VALVE Structurally normal tricuspid valve. There is trace tricuspid valve regurgitation. The estimated pulmonary arterial pressure is 34.4 mmHg. PULMONARY VALVE No pulmonary valve regurgitation or stenosis. VESSELS The inferior vena cava is normal in size. PERICARDIUM No pericardial effusion. Tramaine Ruano MD (Electronically Signed) Final Date:09 April 2017 19:13
[2017-04-09] MEDS: PROPOFOL 1000 MG/100 ML INJ 100 ML IV PRN (20:09)
[2017-04-10] VITALS (20 sets, daily range): BP systolic 111–173; BP diastolic 60–96; PULSE 71–119; RESP 13–28; TEMP 97.5–98.9; O2SAT 90–100
[2017-04-10] MEDS: RESP: ALBUTEROL 2.5 MG/IPRATROPIUM 0.5 MG NEB (SCH) INH ×7 (00:13→23:24)
[2017-04-10] MEDS: RESP: ACETYLCYSTEINE 20% 30 ML NEB NEB SCH ×2 (04:00→08:52)
[2017-04-10] MEDS: INSULIN NovoLIN REGULAR SUPPLEMENTAL SCALE SQ SCH ×7 (04:00→23:28)
[2017-04-10] MEDS: CHLORHEXIDINE GLUCONATE 2 % 1 PACK (2 CLOTHS) TOP SCH (04:00)
[2017-04-10] MEDS: SODIUM CHLORIDE 0.9% FLUSH 10 ML FLUSH IV FLUSH SCH ×2 (05:56→20:53)
[2017-04-10] MEDS: methylPREDNISolone SOD SUCC 40 MG/1 ML VIAL IV PUSH SCH ×3 (05:56→20:53)
[2017-04-10 06:15] LABS: AUTOMATED NEUTROPHIL # 15.1 TH/MM3 (1.8-7.7); BASOPHIL % 0.1 % (0.0-2.0); HEMATOCRIT 35.2 % (35.0-46.0); HEMOGLOBIN 11.6 GM/DL (11.6-15.3); LYMPH % 2.2 % (9.0-44.0); LYMPHOCYTE # 0.4 TH/MM3 (1.0-4.8); MEAN CELL VOLUME 89.3 FL (80.0-100.0); MEAN CORPUSCULAR HEMOGLOBIN 29.5 PG (27.0-34.0); MEAN PLATELET VOLUME 10.4 FL (7.0-11.0); MONO % 4.4 % (0.0-8.0); MONOCYTE # 0.7 TH/MM3 (0-0.9); NEUT % 93.3 % (16.0-70.0); PLATELET COUNT 128 TH/MM3 (150-450); RED BLOOD COUNT 3.94 MIL/MM3 (4.00-5.30); RED CELL DISTRIBUTION WIDTH 14.4 % (11.6-17.2); WHITE BLOOD COUNT 16.2 TH/MM3 (4.0-11.0)
[2017-04-10 06:32] LABS: ALKALINE PHOSPHATASE 81 U/L (45-117); ALT (GPT) 88 U/L (10-53); AST (GOT) 87 U/L (15-37); BICARBONATE 26.4 MEQ/L (21.0-32.0); BLOOD UREA NITROGEN 29 MG/DL (7-18); CALCIUM 8.9 MG/DL (8.5-10.1); CHLORIDE 104 MEQ/L (98-107); CREATININE 0.86 MG/DL (0.50-1.00); GLOMERULAR FILTRATION RATE 65 ML/MIN (>89); GLUCOSE,RANDOM 129 MG/DL (74-106); SODIUM (NA) 139 MEQ/L (136-145); TOTAL BILIRUBIN ADULT 0.3 MG/DL (0.2-1.0); TOTAL PROTEIN 6.9 GM/DL (6.4-8.2)
[2017-04-10] MEDS: CHLORHEXIDINE 0.12% (ORAL KIT) 15 ML CUP MT SCH ×2 (08:00→19:19)
[2017-04-10] MEDS: DOCUSATE SODIUM 50 MG/SENNA 8.6 MG TAB PO SCH ×2 (09:15→20:53)
[2017-04-10] MEDS: HEPARIN SODIUM - SQ 10,000 UNITS/ML VIAL SQ SCH (09:15)
[2017-04-10] MEDS: FAMOTIDINE 20 MG/2 ML VIAL IV PUSH SCH ×2 (09:16→20:54)
--- NOTE | 2017-04-10 09:19 | PD.CARD.PN ---
Subjective Subjective Remarks Mild dyspnea at rest, overall improved. No CP, dizziness, palpitations. Slept fair. Objective Medications Item Value Date Time Heparin Sodium 5,000 units 04/08/172099 (Porcine) Q12HR/SQ 04/09/172010 (Heparin Inj) Current Medications Medications (Trade) Dose Ordered Sig/Sheela Route Start Time Stop Time Status Last Admin (NS Flush) 2 ml UNSCH PRN IVF 04/08/17 13:15 Propofol 100 ml @ 0 mls/hr TITRATE PRN IV 04/08/17 13:15 04/09/17 20:09 (NS Flush) 2 ml UNSCH PRN IV FLUSH 04/08/17 14:00 (NS Flush) 2 ml UNSCH PRN IV FLUSH 04/08/17 15:15 (NS Flush) 2 ml BID IV FLUSH 04/08/17 21:00 04/10/17 05:56 (fentaNYL INJ) 50 mcg Q1H PRN IV PUSH 04/08/17 15:15 (Pepcid Inj) 20 mg Q12HR IV PUSH 04/08/17 21:00 04/09/17 21:00 (Ativan Inj) 1 mg Q1H PRN IV PUSH 04/08/17 15:15 (Zofran Inj) 4 mg Q6H PRN IV PUSH 04/08/17 16:00 04/09/17 01:03 (Duoneb Neb) 1 ampule Q4HR NEB INH 04/08/17 16:00 04/10/17 08:52 (Duoneb Neb) 1 ampule Q2HR NEB PRN INH 04/08/17 18:00 (Mucomyst 20% Neb) 3 ml Q6HR NEB NEB 04/08/17 16:00 04/10/17 10:01 04/10/17 08:52 Miscellaneous Information 1 Q361D XX 04/08/17 15:15 (Chlorhexidine 2% Cloth) 3 pack Taper DAILY@04 TOP 04/09/17 04:00 04/05/18 03:59 04/10/17 04:00 (Chlorhexidine 2% Cloth) 3 pack UNSCH PRN TOP 04/08/17 15:15 (Elise-Colace) 1 tab BID PO 04/08/17 21:00 04/09/17 08:22 (Milk Of Magnesia Liq) 30 ml Q12HR PRN PO 04/08/17 21:00 (Senokot) 17.2 mg Q12HR PRN PO 04/08/17 21:00 (Dulcolax Supp) 10 mg DAILY PRN RECTAL 04/08/17 15:15 (Lactulose Liq) 30 ml DAILY PRN PO 04/08/17 15:15 (Peridex 0.12% Liq) 15 ml BID@08,20 MT 04/08/17 20:00 04/09/17 20:00 Potassium Chloride 100 ml @ 50 mls/hr Q2H PRN IV 04/08/17 15:15 Potassium Chloride 100 ml @ 50 mls/hr Q2H PRN IV 04/08/17 15:15 (K-Lyte Cl Eff) 50 meq UNSCH PRN PO 04/08/17 15:15 Potassium Chloride 100 ml @ 25 mls/hr UNSCH PRN IV 04/08/17 15:15 Potassium Chloride 100 ml @ 50 mls/hr Q2H PRN IV 04/08/17 15:15 Magnesium Sulfate 4 gm/Sodium Chloride 100 ml @ 50 mls/hr UNSCH PRN IV 04/08/17 15:15 (Mag-Ox) 800 mg UNSCH PRN PO 04/08/17 15:15 Magnesium Sulfate 2 gm/Sodium Chloride 100 ml @ 50 mls/hr UNSCH PRN IV 04/08/17 15:15 (K-Phos) 2,000 mg Q4H PRN PO 04/08/17 15:15 Sodium Phosphate 30 mmol/Sodium Chloride 250 ml @ 42 mls/hr UNSCH PRN IV 04/08/17 15:15 (K-Phos) 2,000 mg UNSCH PRN PO/TUBE 04/08/17 15:15 Potassium Phosphate 30 mmol/ Sodium Chloride 260 ml @ 42 mls/hr UNSCH PRN IV 04/08/17 15:15 Fentanyl Citrate 250 ml @ 5 mls/hr TITRATE PRN IV 04/08/17 15:15 04/09/17 19:05 (SoluMEDROL INJ) 40 mg Q8HR IV PUSH 04/08/17 22:00 04/10/17 05:56 (D50w (Vial) Inj) 50 ml UNSCH PRN IV PUSH 04/08/17 16:15 (Glucagon Inj) 1 mg UNSCH PRN OTHER 04/08/17 16:15 (NovoLIN R SUPPLEMENTAL SCALE) 1 Q4HR SQ 04/08/17 20:00 04/09/17 08:00 Levofloxacin/ Dextrose 150 ml @ 100 mls/hr Q24H IV 04/08/17 17:00 04/09/17 18:00 (Heparin Inj) 5,000 units Q12HR SQ 04/08/17 21:00 04/09/17 20:11 Vital Signs / I&O Vital Signs Date Time Temp Pulse Resp B/P (MAP) Pulse Ox O2 Delivery O2 Flow Rate FiO2 04/10/17 07:30 98 40 04/10/17 06:00 98 04/10/17 04:00 50 04/10/17 04:00 98.8 74 16 111/64 (80) 98 04/10/17 04:00 74 04/10/17 03:48 98 40 04/10/17 02:00 71 04/10/17 00:13 99 40 04/10/17 00:00 83 04/10/17 00:00 98.9 83 16 123/60 (81) 100 04/10/17 00:00 50 04/09/17 22:00 68 04/09/17 22:00 50 04/09/17 20:00 99.0 95 28 129/78 (95) 95 04/09/17 20:00 95 04/09/17 20:00 50 04/09/17 19:48 97 40 04/09/17 18:00 100 04/09/17 17:23 99 40 04/09/17 16:00 40 04/09/17 16:00 85 04/09/17 16:00 98.3 85 22 126/59 (81) 100 04/09/17 14:00 89 04/09/17 12:00 70 04/09/17 12:00 40 04/09/17 12:00 98.6 82 20 111/70 (84) 98 04/09/17 11:35 99 40 04/09/17 10:00 71 I/O 04/09/1718 04/09/17 04/10/17 04/10/17 04/10/17 07:00 15:00 23:00 07:00 15:00 23:00 Intake Total 150 ml Output Total 300 ml Balance 150 ml -300 ml Intake IV Total 150 ml Output Urine Total 300 ml Physical Exam GENERAL: Well developed, well nourished. No acute distress. HEENT: Jugular venous pressure is normal. CHEST: Lungs clear to auscultation anteriorly. CARDIAC: Irregular rate and rhythm without S3, S4, or murmur. ABDOMEN: Soft, nontender, no hepatosplenomegaly. Bowel sounds present. EXTREMITIES: No clubbing, cyanosis, or edema. Laboratory Laboratory Tests Test 04/09/17 10:54 04/09/17 15:39 04/10/17 05:40 Lactic Acid Level 2.5 mmol/L White Blood Count 16.2 TH/MM3 Red Blood Count 3.94 MIL/MM3 Hemoglobin 11.6 GM/DL Hematocrit 35.2 % Mean Corpuscular Volume 89.3 FL Mean Corpuscular Hemoglobin 29.5 PG Mean Corpuscular Hemoglobin Concent 33.0 % Red Cell Distribution Width 14.4 % Platelet Count 128 TH/MM3 Mean Platelet Volume 10.4 FL Neutrophils (%) (Auto) 93.3 % Lymphocytes (%) (Auto) 2.2 % Monocytes (%) (Auto) 4.4 % Eosinophils (%) (Auto) 0.0 % Basophils (%) (Auto) 0.1 % Neutrophils # (Auto) 15.1 TH/MM3 Lymphocytes # (Auto) 0.4 TH/MM3 Monocytes # (Auto) 0.7 TH/MM3 Eosinophils # (Auto) 0.0 TH/MM3 Basophils # (Auto) 0.0 TH/MM3 CBC Comment DIFF FINAL Differential Comment Blood Urea Nitrogen 29 MG/DL Creatinine 0.86 MG/DL Random Glucose 129 MG/DL Total Protein 6.9 GM/DL Albumin 3.0 GM/DL Calcium Level 8.9 MG/DL Alkaline Phosphatase 81 U/L Aspartate Amino Transf (AST/SGOT) 87 U/L Alanine Aminotransferase (ALT/SGPT) 88 U/L Total Bilirubin 0.3 MG/DL Sodium Level 139 MEQ/L Potassium Level 4.1 MEQ/L Chloride Level 104 MEQ/L Carbon Dioxide Level 26.4 MEQ/L Anion Gap 9 MEQ/L Estimat Glomerular Filtration Rate 65 ML/MIN Assessment and Plan Problem List: (1) Elevated troponin ICD Codes: R74.8 - Abnormal levels of other serum enzymes Status: Acute Plan: Cardiac status stable overnight. No symptoms c/w angina. Doubt troponin elevations due to ACS. Echo does show small to moderate size area of apical akinesis. REC daily aspirin beta joseph as BP's tolerate consider nuclear stress test (2) Paroxysmal atrial fibrillation ICD Codes: I48.0 - Paroxysmal atrial fibrillation Status: Chronic Plan: Remains in atrial fibrillation, controlled HR's. Chronicity of her atrial fib not entirely clear. She declines anticoagulation therapy as she reports severe bleeding problems with them in the past. REC daily aspirin (3) History of cardiac pacemaker ICD Codes: Z95.0 - Presence of cardiac pacemaker Status: Chronic Code Status full code Discussed Condition With patient Tramaine Ruano MD Apr 10, 2017 09:19
--- NOTE | 2017-04-10 10:22 | HHI.CCPN ---
Subjective Remarks/Hospital Course Is a 72-year-old female who is brought to the emergency department by EMS because of shortness of breath. Patient is intubated and sedated at this time. Information was taken from medical records, nursing staff, ER physician. Records indicate that the patient was tripoding with audible wheeze. When she was in the ambulance he went unconscious and had assist ventilations with bag valve mask. Upon arrival her eyes are closed, she was nonverbal with agonal respirations. Patient was adequately intubated for respiratory support. Upon further evaluation and discussion with the ER physician. The patient's name is Roxanna Harris. Her primary medical doctor Dr. Dumont. Her space sciences director Dr. Rodríguez. Patient has history of COPD, lung status, and has had previous admissions with intubation due to chronic obstructive pulmonary disease exacerbations. The patient does continue to still smoke. Recently she has had a cough with cold symptoms. On presentation the patient was in atrial fibrillation with RVR and patient was administered Cardizem, however heart rate controlled this time. Blood pressure is too low for maintenance of Cardizem drip due to propofol. Will adjust patient to accommodate sedation and blood pressure. ER physician notified critical care team who graciously accepted the patient to their service. Patient be transferred to the main ICU for continued care and management. 04/09 Patient is on Diprivan and Fentanyl drip however she is awake. Afebrile. On Cardizem drip 5mg/hr 04/10 No events overnight. Awake and alert on CPAP with PS 10, PEEP:5 FIO2 40%. Off Cardizem drip. Objective Vital Signs Date Time Temp Pulse Resp B/P (MAP) Pulse Ox O2 Delivery O2 Flow Rate FiO2 04/10/17 08:00 97.5 88 13 142/82 (102) 96 04/10/17 08:00 40 04/08/17 21:10 Ventilator Intake and Output 04/10/17 04/10/17 04/11/17 08:00 16:00 00:00 Output Total 300 ml Balance -300 ml Result Diagram: 04/10/17 0540 04/10/17 0540 Other Results Laboratory Tests Test 04/09/17 10:54 04/09/17 15:39 04/10/17 05:40 Lactic Acid Level 2.5 mmol/L White Blood Count 16.2 TH/MM3 Red Blood Count 3.94 MIL/MM3 Hemoglobin 11.6 GM/DL Hematocrit 35.2 % Mean Corpuscular Volume 89.3 FL Mean Corpuscular Hemoglobin 29.5 PG Mean Corpuscular Hemoglobin Concent 33.0 % Red Cell Distribution Width 14.4 % Platelet Count 128 TH/MM3 Mean Platelet Volume 10.4 FL Neutrophils (%) (Auto) 93.3 % Lymphocytes (%) (Auto) 2.2 % Monocytes (%) (Auto) 4.4 % Eosinophils (%) (Auto) 0.0 % Basophils (%) (Auto) 0.1 % Neutrophils # (Auto) 15.1 TH/MM3 Lymphocytes # (Auto) 0.4 TH/MM3 Monocytes # (Auto) 0.7 TH/MM3 Eosinophils # (Auto) 0.0 TH/MM3 Basophils # (Auto) 0.0 TH/MM3 CBC Comment DIFF FINAL Differential Comment Blood Urea Nitrogen 29 MG/DL Creatinine 0.86 MG/DL Random Glucose 129 MG/DL Total Protein 6.9 GM/DL Albumin 3.0 GM/DL Calcium Level 8.9 MG/DL Alkaline Phosphatase 81 U/L Aspartate Amino Transf (AST/SGOT) 87 U/L Alanine Aminotransferase (ALT/SGPT) 88 U/L Total Bilirubin 0.3 MG/DL Sodium Level 139 MEQ/L Potassium Level 4.1 MEQ/L Chloride Level 104 MEQ/L Carbon Dioxide Level 26.4 MEQ/L Anion Gap 9 MEQ/L Estimat Glomerular Filtration Rate 65 ML/MIN Imaging Last Impressions Liver Ultrasound 04/09/17 0000 Signed Impressions: Service Date/Time: Sunday, April 09, 2017 10:48 - CONCLUSION: Surgical absence of gallbladder. Multiple bilateral renal cysts. Liver appears lower limits of normal in size with mildly increased echogenicity but no evidence of dilated ducts or focal lesion. small right pleural effusion Wolfgang Dooley MD Chest X-Ray 04/08/17 1306 Signed Impressions: Service Date/Time: March 13:16 - CONCLUSION: Lungs are grossly intact. ET tube in good position. Pacemaker good position. Danielito Trinidad MD Objective Remarks GENERAL: Patient is intubated SKIN: Warm and dry. HEAD: Normocephalic. EYES: No scleral icterus. No injection or drainage. NECK: Supple, trachea midline. No JVD or lymphadenopathy. CARDIOVASCULAR: Regular rate and rhythm without murmurs, gallops, or rubs. RESPIRATORY: Breath sounds equal bilaterally. No accessory muscle use. GASTROINTESTINAL: Abdomen soft, non-tender, nondistended. MUSCULOSKELETAL: No cyanosis, or edema. Neuro: Intubated, awake A/P Problem List: (1) Acute respiratory failure with hypoxia and hypercapnia ICD Code: J96.01 - Acute respiratory failure with hypoxia; J96.02 - Acute respiratory failure with hypercapnia (2) Chronic obstructive pulmonary disease ICD Code: J44.9 - Chronic obstructive pulmonary disease, unspecified (3) Metabolic acidosis ICD Code: E87.2 - Acidosis (4) Lactic acidosis ICD Code: E87.2 - Acidosis (5) Atrial fibrillation with RVR ICD Code: I48.91 - Unspecified atrial fibrillation (6) Hyperglycemia ICD Code: R73.9 - Hyperglycemia, unspecified Assessment and Plan NEUROLOGY Off sedation this morning. Awake and alert PULMONOLOGY Acute hypoxic/hypercapnic respiratory failure Chronic obstructive pulmonary disease Continue with vent support keep sat >92% 92% Duo nebs every 4 hours and every 2 hours as needed Mucomyst every 6 hours Solu-Medrol 40 mg every 8 hours Ventilator bundle Daily spontaneous breathing trial, check ABG on CPAP and possible extubation today CARDIOLOGY Mild elevated trop Atrial fibrillation with RVR Hypertension Monitor HR and BP keep MAP>65mmHg Continue with ASA, increase Lopressor 25mg Q12. Cards is following- Dr. Ruano. Echo showed EF 50-55%, small-mod apical akinesis GASTROENTEROLOGY Elevated LFT;s Monitor LFT's (trending down), US liver: Surgical absence of gallbladder. Multiple bilateral renal cysts. Liver appears lower limits of normal in size with mildly increased echogenicity but no evidence of dilated ducts or focal lesion. small right pleural effusion Hepatitis profile pending. Tube feed held for possible extubation Pepcid for GI protection Bowel regimen GENITOURINARY Hyponatremia Monitor renal function, ICU electrolyte replacement protocol INFECTIOUS DISEASE Continue with Levaquin for COPD exac, Influenza testing is negative Sputum culture -normal resp juliet 04/08: [facility] ENDOCRINOLOGY Hyperglycemia Accu-Cheks with sliding scale insulin HEMATOLOGY Monitor CBC, Hemoccult positive consult GI PROPHYLAXIS DVT prevention with sequential compression devices,hold subQ heparin for Hemoccult positive stool GI protection with IV Pepcid LINES Peripheral IVs CODE STATUS Full code Level 3 Bradley,Alaa MD Apr 10, 2017 10:22
[2017-04-10] MEDS: BUDESONIDE-FORMOTEROL 160/4.5 MCG INHALER INH SCH ×2 (12:00→20:59)
[2017-04-10] MEDS ORDERED: ALPRAZolam 0.25 MG TAB PO ONE (12:30)
--- NOTE | 2017-04-10 14:10 | PD.CONS ---
HPI History of Present Illness This is a 71 year old female with hx of lung cancer s/p radiation following with Dr. Mcelroy, bladder cancer, breast cancer who is brought to the emergency department by EMS because of shortness of breath. Patient subsequently was intubated but currently extubated. GI consulted for heme (+) stools and drop in hgb. Patient was established with Dr. Chung and had EGD/ colonoscopy last yr. Currently is transferring care to Dr. Payne but neither one come to [facility], there fore will purse with evaluation. Patient states had hx of rectal bleeding approx. a year ago due to being on Xarelto, but that was discontinued. States she has received blood transfusion about 6 months ago. States having rectal bleed about 2 days ago 2X but non since. Denies nausea, hematemesis, abd pain. States she has been constipated. According to the nurse, pt had emesis in the ED and required decompression. Pt is currently resting in bed, denies much of GI issues. Not interested in doing EGD/colonoscopy at the present time. Hgb today is 11.6 which is a drop from 13.4. LFTs elevated, these are trending down, hepatitis panel pending. US showed surgical absence of gallbladder. Multiple bilateral renal cysts. Liver appears lower limits of normal in size with mildly increased echogenicity but no evidence of dilated ducts or focal lesion. small right pleural effusion (Fredis Mcelroy ROUGH ROUNDER) PFSH Past Medical History Chronic obstructive pulmonary disease Atrial fibrillation Pacemaker placement History of bladder cancer History of breast cancer status post radiation and chemotherapy History of uncontrolled hypertension Past Surgical History Status post breast lumpectomy and lymph node sampling Status post [facility] [facility] pacemaker placement Bladder surgery for cancer Cholecystectomy Tonsillectomy Right shoulder surgery EGD/colonoscopy (Fredis Mcelroy R[employer] ROUNDER) Coded Allergies: No Allergy Information Available (Unverified , 04/08/17) Intubated Medications Current Medications Medications (Trade) Dose Ordered Sig/Sheela Route Start Time Stop Time Status Last Admin (NS Flush) 2 ml UNSCH PRN IVF 04/08/17 13:15 (NS Flush) 2 ml UNSCH PRN IV FLUSH 04/08/17 14:00 (NS Flush) 2 ml UNSCH PRN IV FLUSH 04/08/17 15:15 (NS Flush) 2 ml BID IV FLUSH 04/08/17 21:00 04/10/17 05:56 (fentaNYL INJ) 50 mcg Q1H PRN IV PUSH 04/08/17 15:15 (Pepcid Inj) 20 mg Q12HR IV PUSH 04/08/17 21:00 04/10/17 09:16 (Ativan Inj) 1 mg Q1H PRN IV PUSH 04/08/17 15:15 (Zofran Inj) 4 mg Q6H PRN IV PUSH 04/08/17 16:00 04/09/17 01:03 (Duoneb Neb) 1 ampule Q4HR NEB INH 04/08/17 16:00 04/10/17 11:17 (Duoneb Neb) 1 ampule Q2HR NEB PRN INH 04/08/17 18:00 Miscellaneous Information 1 Q361D XX 04/08/17 15:15 (Chlorhexidine 2% Cloth) 3 pack Taper DAILY@04 TOP 04/09/17 04:00 04/05/18 03:59 04/10/17 04:00 (Chlorhexidine 2% Cloth) 3 pack UNSCH PRN TOP 04/08/17 15:15 (Elise-Colace) 1 tab BID PO 04/08/17 21:00 04/10/17 09:15 (Milk Of Magnesia Liq) 30 ml Q12HR PRN PO 04/08/17 21:00 (Senokot) 17.2 mg Q12HR PRN PO 04/08/17 21:00 (Dulcolax Supp) 10 mg DAILY PRN RECTAL 04/08/17 15:15 (Lactulose Liq) 30 ml DAILY PRN PO 04/08/17 15:15 (Peridex 0.12% Liq) 15 ml BID@08,20 MT 04/08/17 20:00 04/10/17 08:00 Potassium Chloride 100 ml @ 50 mls/hr Q2H PRN IV 04/08/17 15:15 Potassium Chloride 100 ml @ 50 mls/hr Q2H PRN IV 04/08/17 15:15 (K-Lyte Cl Eff) 50 meq UNSCH PRN PO 04/08/17 15:15 Potassium Chloride 100 ml @ 25 mls/hr UNSCH PRN IV 04/08/17 15:15 Potassium Chloride 100 ml @ 50 mls/hr Q2H PRN IV 04/08/17 15:15 Magnesium Sulfate 4 gm/Sodium Chloride 100 ml @ 50 mls/hr UNSCH PRN IV 04/08/17 15:15 (Mag-Ox) 800 mg UNSCH PRN PO 04/08/17 15:15 Magnesium Sulfate 2 gm/Sodium Chloride 100 ml @ 50 mls/hr UNSCH PRN IV 04/08/17 15:15 (K-Phos) 2,000 mg Q4H PRN PO 04/08/17 15:15 Sodium Phosphate 30 mmol/Sodium Chloride 250 ml @ 42 mls/hr UNSCH PRN IV 04/08/17 15:15 (K-Phos) 2,000 mg UNSCH PRN PO/TUBE 04/08/17 15:15 Potassium Phosphate 30 mmol/ Sodium Chloride 260 ml @ 42 mls/hr UNSCH PRN IV 04/08/17 15:15 (SoluMEDROL INJ) 40 mg Q8HR IV PUSH 04/08/17 22:00 04/10/17 05:56 (D50w (Vial) Inj) 50 ml UNSCH PRN IV PUSH 04/08/17 16:15 (Glucagon Inj) 1 mg UNSCH PRN OTHER 04/08/17 16:15 (NovoLIN R SUPPLEMENTAL SCALE) 1 Q4HR SQ 04/08/17 20:00 04/09/17 08:00 Levofloxacin/ Dextrose 150 ml @ 100 mls/hr Q24H IV 04/08/17 17:00 04/09/17 18:00 (Heparin Inj) 5,000 units Q12HR SQ 04/08/17 21:00 Future Hold 04/10/17 09:15 (Lopressor) 12.5 mg Q12HR NG 04/10/17 21:00 (Aspirin Chew) 162 mg DAILY NG 04/10/17 20:00 (Symbicort 160-4.5 Mcg Inh) 2 puff Q12HR INH 04/10/17 12:00 Family History Aunt had colon cancer Social History No alcohol (Amawi,Zeeshanawzhang R[employer] ROUNDER) Review of Systems Constitutional: DENIES: Change in appetite Endocrine: DENIES: Polyuria Eyes: DENIES: Double Vision Respiratory: COMPLAINS OF: Shortness of breath Gastrointestinal: COMPLAINS OF: Bloody stools, Constipation, DENIES: Abdominal pain, Black stools, Diarrhea, Nausea, Vomiting, Difficulty Swallowing, Odynophagia, Swelling of Abdomen, Heartburn, Hematemesis Genitourinary: DENIES: Hematuria Integumentary: DENIES: Jaundice Hematologic/lymphatic: DENIES: Bruising Immunologic/allergic: DENIES: Eczema Neurologic: DENIES: Abnormal gait (Fredis Mcelroy) GI Exam Vitals I&O Vital Signs Date Time Temp Pulse Resp B/P (MAP) Pulse Ox O2 Delivery O2 Flow Rate FiO2 04/10/17 11:06 92 Nasal Cannula 4 36 04/10/17 10:00 89 04/10/17 08:00 97.5 88 13 142/82 (102) 96 04/10/17 08:00 88 04/10/17 08:00 50 04/10/17 07:30 98 40 04/10/17 06:00 98 04/10/17 04:00 50 04/10/17 04:00 98.8 74 16 111/64 (80) 98 04/10/17 04:00 74 04/10/17 03:48 98 40 04/10/17 02:00 71 04/10/17 00:13 99 40 04/10/17 00:00 83 04/10/17 00:00 98.9 83 16 123/60 (81) 100 04/10/17 00:00 50 04/09/17 22:00 68 04/09/17 22:00 50 04/09/17 20:00 99.0 95 28 129/78 (95) 95 04/09/17 20:00 95 04/09/17 20:00 50 04/09/17 19:48 97 40 04/09/17 18:00 100 04/09/17 17:23 99 40 04/09/17 16:00 40 04/09/17 16:00 85 04/09/17 16:00 98.3 85 22 126/59 (81) 100 04/09/17 14:00 89 I/O 04/09/17 04/09/17 04/09/17 04/10/17 04/10/17 04/10/17 07:00 15:00 23:00 07:00 15:00 23:00 Intake Total 150 ml Output Total 300 ml Balance 150 ml -300 ml Intake IV Total 150 ml Output Urine Total 300 ml Imaging Last Impressions Liver Ultrasound 04/09/17 0000 Signed Impressions: Service Date/Time: Sunday, April 09, 2017 10:48 - CONCLUSION: Surgical absence of gallbladder. Multiple bilateral renal cysts. Liver appears lower limits of normal in size with mildly increased echogenicity but no evidence of dilated ducts or focal lesion. small right pleural effusion Wlofgang Dooley MD Chest X-Ray 04/08/17 1306 Signed Impressions: Service Date/Time: March 13:16 - CONCLUSION: Lungs are grossly intact. ET tube in good position. Pacemaker good position. Danielito Trinidad MD Laboratory Test 04/09/17 15:39 04/10/17 05:40 04/10/17 10:35 White Blood Count 16.2 TH/MM3 Red Blood Count 3.94 MIL/MM3 Hemoglobin 11.6 GM/DL Hematocrit 35.2 % Mean Corpuscular Volume 89.3 FL Mean Corpuscular Hemoglobin 29.5 PG Mean Corpuscular Hemoglobin Concent 33.0 % Red Cell Distribution Width 14.4 % Platelet Count 128 TH/MM3 Mean Platelet Volume 10.4 FL Neutrophils (%) (Auto) 93.3 % Lymphocytes (%) (Auto) 2.2 % Monocytes (%) (Auto) 4.4 % Eosinophils (%) (Auto) 0.0 % Basophils (%) (Auto) 0.1 % Neutrophils # (Auto) 15.1 TH/MM3 Lymphocytes # (Auto) 0.4 TH/MM3 Monocytes # (Auto) 0.7 TH/MM3 Eosinophils # (Auto) 0.0 TH/MM3 Basophils # (Auto) 0.0 TH/MM3 CBC Comment DIFF FINAL Differential Comment Blood Urea Nitrogen 29 MG/DL Creatinine 0.86 MG/DL Random Glucose 129 MG/DL Total Protein 6.9 GM/DL Albumin 3.0 GM/DL Calcium Level 8.9 MG/DL Alkaline Phosphatase 81 U/L Aspartate Amino Transf (AST/SGOT) 87 U/L Alanine Aminotransferase (ALT/SGPT) 88 U/L Total Bilirubin 0.3 MG/DL Sodium Level 139 MEQ/L Potassium Level 4.1 MEQ/L Chloride Level 104 MEQ/L Carbon Dioxide Level 26.4 MEQ/L Anion Gap 9 MEQ/L Estimat Glomerular Filtration Rate 65 ML/MIN Blood Gas Puncture Site RT RADIAL Blood Gas Patient Temperature 98.6 Blood Gas HCO3 24 mmol/L Blood Gas Base Excess -0.6 mmol/L Blood Gas Oxygen Saturation 95 % Arterial Blood pH 7.34 Arterial Blood Partial Pressure CO2 46 mmHg Arterial Blood Partial Pressure O2 97 mmHg Arterial Blood Oxygen Content 15.6 Vol % Arterial Blood Carboxyhemoglobin 0.8 % Arterial Blood Methemoglobin 1.2 % Blood Gas Hemoglobin 11.6 G/DL Oxygen Delivery Device VENTILATOR Blood Gas Ventilator Setting CPAP 5/10PS Blood Gas Inspired Oxygen 40 % Date/Time Source Procedure Growth Status 04/08/17 13:32 Blood Peripheral Aerobic Blood Culture - Preliminary NO GROWTH IN 2 DAYS Resulted 04/08/17 13:32 Blood Peripheral Anaerobic Blood Culture - Preliminary NO GROWTH IN 2 DAYS Resulted 04/09/17 12:30 Stool Stool Stool Occult Blood (VENANCIO) - Final HEMOCCULT POSITIVE Complete 04/08/17 16:21 Sputum Endotracheal Gram Stain - Final Complete 04/08/17 16:21 Sputum Endotracheal Sputum Culture - Final HEAVY GROWTH NORMAL RESPIRATORY SHARLA Complete Physical Examination HEENT: normocephalic; atraumatic; no jaundice. CHEST: Chest is clear to auscultation and percussion. CARDIAC: Regular rate and rhythm with no murmur gallop or rubs. ABDOMEN: Soft, nondistended, nontender; no hepatosplenomegaly; bowel sounds are present in all four quadrants. EXTREMITIES: No clubbing, cyanosis, or edema. SKIN: Normal; no rash; no jaundice. ANALYTICAL STATISTICIAN: No focal deficits; alert and oriented times three. (Fredis Mcelroy) Assessment and Plan Plan - Heme (+) stools- Hgb today is 11.6 which is a drop from 13.4. Pt reports having rectal bleed about 2 days ago 2X but non since. Denies nausea, hematemesis, abd pain. States she has been constipated. According to the nurse, pt had emesis in the ED and required decompression. Pt is currently resting in bed, denies much of GI issues. Not interested in doing EGD/colonoscopy at the present time. Patient was established with Dr. Chung and had EGD/colonoscopy last yr. Currently is transferring care to Dr. Payne but neither one come to [facility], there fore will purse with evaluation. Patient states had hx of rectal bleeding approx. a year ago due to being on Xarelto, but that was discontinued. States she has received blood transfusion about 6 months ago. - Elevated LFTs- these are trending down, hepatitis panel pending. US showed surgical absence of gallbladder. Multiple bilateral renal cysts. Liver appears lower limits of normal in size with mildly increased echogenicity but no evidence of dilated ducts or focal lesion. small right pleural effusion. will monitor for now - Elevated troponin- cardiology on the case - lung cancer s/p radiation following with Dr. Mcelroy - hx of , bladder cancer, breast cancer - Respiratory failure- s/p intubation and now has been extubated Plan: - Diet per attending - Currently pt not interested in doing EGD/colonoscopy stating she just had one done and rather follow as an OP with Dr. Payne as he has her medical records but pt agreed that if she develops active bleed, she will consider Inpatient evaluation - Monitor hh - Notify GI for active bleed - Await hepatitis panel - Monitor lfts - Supportive care - Patient seen and examined by Dr. Durán and myself and this note is written on his behalf. (Fredis Mcelroy) Physician Comments Patient seen and examined Agree with above Continue with current supportive care Monitor labs Patient refusing at this point to proceed with endoscopy We will continue with close monitoring and transfusions as needed Patient will be willing to pursue endoscopy if there is any active bleeding She tells me that her urine was bloody when they took the sample for the stool (Santhosh Durán MD) Fredis Mcelroy Apr 10, 2017 14:10 Santhosh Durán MD Apr 10, 2017 22:23
[2017-04-10] MEDS ORDERED: DILTIAZEM HCL 25 MG/5 ML VIAL ONE (14:47)
[2017-04-10] MEDS ORDERED: DILTIAZEM HCL 25 MG/5 ML VIAL IV ONE ×2 (15:00→16:45)
[2017-04-10] MEDS: LEVOFLOXACIN 750 MG PREMIX INJ 150 ML IV SCH (17:53)
[2017-04-10] MEDS: ASPIRIN 81 MG CHEW TAB NG SCH (20:00)
[2017-04-10] MEDS ORDERED: METOPROLOL TARTRATE 25 MG TAB NG SCH ×2 (21:00)
[2017-04-10] MEDS: ALPRAZolam 0.25 MG TAB PO PRN (21:30)
[2017-04-10] MEDS: ONDANSETRON HCL 4 MG/2 ML VIAL IV PUSH PRN (23:28)
[2017-04-11] VITALS (17 sets, daily range): BP systolic 137–167; BP diastolic 65–104; PULSE 76–94; RESP 17–59; TEMP 97.5–98.3; O2SAT 90–100
[2017-04-11] MEDS: RESP: ALBUTEROL 2.5 MG/IPRATROPIUM 0.5 MG NEB (SCH) INH ×5 (03:30→19:52)
[2017-04-11] MEDS: CHLORHEXIDINE GLUCONATE 2 % 1 PACK (2 CLOTHS) TOP SCH (04:00)
[2017-04-11] MEDS: INSULIN NovoLIN REGULAR SUPPLEMENTAL SCALE SQ SCH ×6 (04:22→23:21)
[2017-04-11] MEDS: methylPREDNISolone SOD SUCC 40 MG/1 ML VIAL IV PUSH SCH ×4 (05:52→20:56)
[2017-04-11 06:27] LABS: ALBUMIN 3.2 GM/DL (3.4-5.0); ALT (GPT) 70 U/L (10-53); AST (GOT) 57 U/L (15-37); BICARBONATE 25.4 MEQ/L (21.0-32.0); BLOOD UREA NITROGEN 33 MG/DL (7-18); CALCIUM 8.8 MG/DL (8.5-10.1); CHLORIDE 104 MEQ/L (98-107); CREATININE 0.79 MG/DL (0.50-1.00); GLOMERULAR FILTRATION RATE 71 ML/MIN (>89); GLUCOSE,RANDOM 142 MG/DL (74-106); SODIUM (NA) 138 MEQ/L (136-145)
[2017-04-11 06:30] LABS: ALKALINE PHOSPHATASE 82 U/L (45-117); HEMATOCRIT 34.4 % (35.0-46.0); HEMOGLOBIN 11.3 GM/DL (11.6-15.3); LYMPHOCYTE # 0.3 TH/MM3 (1.0-4.8); MEAN CELL VOLUME 89.1 FL (80.0-100.0); MEAN CORPUSCULAR HEMOGLOBIN 29.3 PG (27.0-34.0); MEAN CORPUSCULAR HGB CONC 32.9 % (32.0-36.0); MEAN PLATELET VOLUME 10.8 FL (7.0-11.0); MONO % 4.1 % (0.0-8.0); MONOCYTE # 0.6 TH/MM3 (0-0.9); NEUT % 93.9 % (16.0-70.0); PLATELET COUNT 133 TH/MM3 (150-450); RED BLOOD COUNT 3.86 MIL/MM3 (4.00-5.30); RED CELL DISTRIBUTION WIDTH 14.6 % (11.6-17.2); TOTAL BILIRUBIN ADULT 0.3 MG/DL (0.2-1.0); WHITE BLOOD COUNT 13.9 TH/MM3 (4.0-11.0)
[2017-04-11] MEDS: CHLORHEXIDINE 0.12% (ORAL KIT) 15 ML CUP MT SCH ×2 (08:00→19:56)
--- NOTE | 2017-04-11 08:29 | PD.CARD.PN ---
Subjective Subjective Remarks Mild dyspnea at rest, overall improved. No CP, dizziness, palpitations, PND. Objective Medications Item Value Date Time Metoprolol 50 mg 04/11/17 0900 Tartrate Q12HR/NG (Lopressor) Aspirin 162 mg 04/10/171999 (Aspirin Chew) DAILY/NG Current Medications Medications (Trade) Dose Ordered Sig/Sheela Route Start Time Stop Time Status Last Admin (NS Flush) 2 ml UNSCH PRN IVF 04/08/17 13:15 (NS Flush) 2 ml UNSCH PRN IV FLUSH 04/08/17 14:00 (NS Flush) 2 ml UNSCH PRN IV FLUSH 04/08/17 15:15 (NS Flush) 2 ml BID IV FLUSH 04/08/17 21:00 04/10/17 20:53 (Pepcid Inj) 20 mg Q12HR IV PUSH 04/08/17 21:00 04/10/17 20:54 (Ativan Inj) 1 mg Q1H PRN IV PUSH 04/08/17 15:15 (Zofran Inj) 4 mg Q6H PRN IV PUSH 04/08/17 16:00 04/10/17 23:28 (Duoneb Neb) 1 ampule Q4HR NEB INH 04/08/17 16:00 04/11/17 07:54 (Duoneb Neb) 1 ampule Q2HR NEB PRN INH 04/08/17 18:00 Miscellaneous Information 1 Q361D XX 04/08/17 15:15 04/10/17 23:28 (Chlorhexidine 2% Cloth) 3 pack Taper DAILY@04 TOP 04/09/17 04:00 04/05/18 03:59 04/11/17 04:00 (Chlorhexidine 2% Cloth) 3 pack UNSCH PRN TOP 04/08/17 15:15 (Elise-Colace) 1 tab BID PO 04/08/17 21:00 04/10/17 20:53 (Milk Of Magnesia Liq) 30 ml Q12HR PRN PO 04/08/17 21:00 (Senokot) 17.2 mg Q12HR PRN PO 04/08/17 21:00 (Dulcolax Supp) 10 mg DAILY PRN RECTAL 04/08/17 15:15 (Lactulose Liq) 30 ml DAILY PRN PO 04/08/17 15:15 (Peridex 0.12% Liq) 15 ml BID@08,20 MT 04/08/17 20:00 04/10/17 08:00 Potassium Chloride 100 ml @ 50 mls/hr Q2H PRN IV 04/08/17 15:15 Potassium Chloride 100 ml @ 50 mls/hr Q2H PRN IV 04/08/17 15:15 (K-Lyte Cl Eff) 50 meq UNSCH PRN PO 04/08/17 15:15 Potassium Chloride 100 ml @ 25 mls/hr UNSCH PRN IV 04/08/17 15:15 Potassium Chloride 100 ml @ 50 mls/hr Q2H PRN IV 04/08/17 15:15 Magnesium Sulfate 4 gm/Sodium Chloride 100 ml @ 50 mls/hr UNSCH PRN IV 04/08/17 15:15 (Mag-Ox) 800 mg UNSCH PRN PO 04/08/17 15:15 Magnesium Sulfate 2 gm/Sodium Chloride 100 ml @ 50 mls/hr UNSCH PRN IV 04/08/17 15:15 (K-Phos) 2,000 mg Q4H PRN PO 04/08/17 15:15 Sodium Phosphate 30 mmol/Sodium Chloride 250 ml @ 42 mls/hr UNSCH PRN IV 04/08/17 15:15 (K-Phos) 2,000 mg UNSCH PRN PO/TUBE 04/08/17 15:15 Potassium Phosphate 30 mmol/ Sodium Chloride 260 ml @ 42 mls/hr UNSCH PRN IV 04/08/17 15:15 (SoluMEDROL INJ) 40 mg Q8HR IV PUSH 04/08/17 22:00 04/10/17 20:53 (D50w (Vial) Inj) 50 ml UNSCH PRN IV PUSH 04/08/17 16:15 (Glucagon Inj) 1 mg UNSCH PRN OTHER 04/08/17 16:15 (NovoLIN R SUPPLEMENTAL SCALE) 1 Q4HR SQ 04/08/17 20:00 04/11/17 04:22 Levofloxacin/ Dextrose 150 ml @ 100 mls/hr Q24H IV 04/08/17 17:00 04/10/17 17:53 (Heparin Inj) 5,000 units Q12HR SQ 04/08/17 21:00 Future Hold 04/10/17 09:15 (Aspirin Chew) 162 mg DAILY NG 04/10/17 20:00 (Symbicort 160-4.5 Mcg Inh) 2 puff Q12HR INH 04/10/17 12:00 04/10/17 20:59 (Xanax) 0.25 mg HS PRN PO 04/10/17 21:00 04/10/17 21:30 (Lopressor) 50 mg Q12HR NG 04/11/17 09:00 Vital Signs / I&O Vital Signs Date Time Temp Pulse Resp B/P (MAP) Pulse Ox O2 Delivery O2 Flow Rate FiO2 04/11/17 07:56 96 Nasal Cannula 2.00 04/11/17 06:00 87 04/11/17 04:00 97.5 85 23 164/73 (103) 92 04/11/17 04:00 85 04/11/17 03:33 99 40 04/11/17 03:32 99 BiPAP 04/11/17 02:00 86 04/11/17 01:16 98 40 04/11/17 00:00 98.3 94 23 148/65 (92) 97 04/11/17 00:00 94 04/10/17 23:28 94 Nasal Cannula 3.00 04/10/17 22:20 100 40 04/10/17 22:00 94 04/10/17 20:00 109 04/10/17 20:00 98.5 109 28 156/72 (100) 96 04/10/17 19:42 94 Nasal Cannula 3.00 04/10/17 18:00 103 04/10/17 16:00 98.7 119 26 173/73 (106) 90 04/10/17 16:00 111 04/10/17 15:00 93 30 04/10/17 14:00 99 04/10/17 12:00 113 04/10/17 12:00 98.9 113 16 171/96 (121) 98 04/10/17 11:06 92 Nasal Cannula 4 36 04/10/17 10:00 89 I/O 04/10/17 04/10/17 04/10/17 04/11/17 04/11/17 04/11/17 06:59 14:59 22:59 06:59 14:59 22:59 Intake Total 240 ml Output Total 300 ml Balance -300 ml 240 ml Intake Oral 240 ml Output Urine Total 300 ml # Voids 7 Physical Exam GENERAL: Well developed, thin. No acute distress. HEENT: Jugular venous pressure is normal. CHEST: Diminished breath sounds diffusely. Few scattered minimal expiratory wheezes. CARDIAC: Irregular rate and rhythm without S3, S4, or murmur. ABDOMEN: Soft, nontender, no hepatosplenomegaly. Bowel sounds present. EXTREMITIES: No clubbing, cyanosis, or edema. Laboratory Laboratory Tests Test 04/10/17 10:35 04/11/17 05:10 Blood Gas Puncture Site RT RADIAL Blood Gas Patient Temperature 98.6 Blood Gas HCO3 24 mmol/L Blood Gas Base Excess -0.6 mmol/L Blood Gas Oxygen Saturation 95 % Arterial Blood pH 7.34 Arterial Blood Partial Pressure CO2 46 mmHg Arterial Blood Partial Pressure O2 97 mmHg Arterial Blood Oxygen Content 15.6 Vol % Arterial Blood Carboxyhemoglobin 0.8 % Arterial Blood Methemoglobin 1.2 % Blood Gas Hemoglobin 11.6 G/DL Oxygen Delivery Device VENTILATOR Blood Gas Ventilator Setting CPAP 5/10PS Blood Gas Inspired Oxygen 40 % White Blood Count 13.9 TH/MM3 Red Blood Count 3.86 MIL/MM3 Hemoglobin 11.3 GM/DL Hematocrit 34.4 % Mean Corpuscular Volume 89.1 FL Mean Corpuscular Hemoglobin 29.3 PG Mean Corpuscular Hemoglobin Concent 32.9 % Red Cell Distribution Width 14.6 % Platelet Count 133 TH/MM3 Mean Platelet Volume 10.8 FL Neutrophils (%) (Auto) 93.9 % Lymphocytes (%) (Auto) 2.0 % Monocytes (%) (Auto) 4.1 % Eosinophils (%) (Auto) 0.0 % Basophils (%) (Auto) 0.0 % Neutrophils # (Auto) 13.0 TH/MM3 Lymphocytes # (Auto) 0.3 TH/MM3 Monocytes # (Auto) 0.6 TH/MM3 Eosinophils # (Auto) 0.0 TH/MM3 Basophils # (Auto) 0.0 TH/MM3 CBC Comment DIFF FINAL Differential Comment Blood Urea Nitrogen 33 MG/DL Creatinine 0.79 MG/DL Random Glucose 142 MG/DL Total Protein 7.0 GM/DL Albumin 3.2 GM/DL Calcium Level 8.8 MG/DL Alkaline Phosphatase 82 U/L Aspartate Amino Transf (AST/SGOT) 57 U/L Alanine Aminotransferase (ALT/SGPT) 70 U/L Total Bilirubin 0.3 MG/DL Sodium Level 138 MEQ/L Potassium Level 4.3 MEQ/L Chloride Level 104 MEQ/L Carbon Dioxide Level 25.4 MEQ/L Anion Gap 9 MEQ/L Estimat Glomerular Filtration Rate 71 ML/MIN Assessment and Plan Problem List: (1) Elevated troponin ICD Codes: R74.8 - Abnormal levels of other serum enzymes Status: Acute Plan: Cardiac status stable overnight. No recent symptoms c/w angina. Doubt troponin elevations due to ACS. Echo does show small to moderate size area of apical akinesis. REC daily aspirin continue beta joseph, add ASHLEY-I consider nuclear stress test, though patient unable to lie flat for any extended period of time; can do stress test as outpatient with her primary manufacturing storeperson in [facility] f/u as needed (2) Paroxysmal atrial fibrillation ICD Codes: I48.0 - Paroxysmal atrial fibrillation Status: Chronic Plan: Remains in atrial fibrillation, controlled HR's. Chronicity of her atrial fib not entirely clear. She declines anticoagulation therapy as she reports severe bleeding problems with them in the past. REC daily aspirin, beta joseph (3) History of cardiac pacemaker ICD Codes: Z95.0 - Presence of cardiac pacemaker Status: Chronic Code Status full code Discussed Condition With patient and Tramaine Ruano MD Apr 11, 2017 08:29
[2017-04-11] MEDS: DOCUSATE SODIUM 50 MG/SENNA 8.6 MG TAB PO SCH ×2 (08:48→20:56)
[2017-04-11] MEDS: METOPROLOL TARTRATE 25 MG TAB NG SCH ×2 (08:48→20:56)
[2017-04-11] MEDS: ASPIRIN 81 MG CHEW TAB NG SCH (08:48)
[2017-04-11] MEDS: SODIUM CHLORIDE 0.9% FLUSH 10 ML FLUSH IV FLUSH SCH ×2 (08:49→20:57)
[2017-04-11] MEDS: BUDESONIDE-FORMOTEROL 160/4.5 MCG INHALER INH SCH ×2 (08:49→20:57)
[2017-04-11] MEDS: FAMOTIDINE 20 MG/2 ML VIAL IV PUSH SCH ×2 (08:49→20:56)
[2017-04-11] MEDS: ENALAPRIL MALEATE 10 MG TAB PO SCH ×2 (08:55→20:56)
--- NOTE | 2017-04-11 09:09 | HHI.CCPN ---
Subjective Remarks/Hospital Course Is a 72-year-old female who is brought to the emergency department by EMS because of shortness of breath. Patient is intubated and sedated at this time. Information was taken from medical records, nursing staff, ER physician. Records indicate that the patient was tripoding with audible wheeze. When she was in the ambulance he went unconscious and had assist ventilations with bag valve mask. Upon arrival her eyes are closed, she was nonverbal with agonal respirations. Patient was adequately intubated for respiratory support. Upon further evaluation and discussion with the ER physician. The patient's name is Roxanna Harris. Her primary medical doctor Dr. Dumont. Her ui developer with [employer] Dr. Rodríguez. Patient has history of COPD, lung status, and has had previous admissions with intubation due to chronic obstructive pulmonary disease exacerbations. The patient does continue to still smoke. Recently she has had a cough with cold symptoms. On presentation the patient was in atrial fibrillation with RVR and patient was administered Cardizem, however heart rate controlled this time. Blood pressure is too low for maintenance of Cardizem drip due to propofol. Will adjust patient to accommodate sedation and blood pressure. ER physician notified critical care team who graciously accepted the patient to their service. Patient be transferred to the main ICU for continued care and management. 04/09 Patient is on Diprivan and Fentanyl drip however she is awake. Afebrile. On Cardizem drip 5mg/hr 04/10 No events overnight. Awake and alert on CPAP with PS 10, PEEP:5 FIO2 40%. Off Cardizem drip. 04/11 Patient s/p extubation yesterday on 2L oxygen with good sats. Used BIPAP intermittently overnight. Objective Vital Signs Date Time Temp Pulse Resp B/P (MAP) Pulse Ox O2 Delivery O2 Flow Rate FiO2 04/11/17 07:56 96 Nasal Cannula 2.00 04/11/17 06:00 87 04/11/17 04:00 97.5 23 164/73 (103) 04/11/17 03:33 40 Intake and Output 04/11/17 04/11/17 04/12/17 08:00 16:00 00:00 Intake Total 240 ml Balance 240 ml Result Diagram: 04/11/1710 04/11/17 0510 Other Results Laboratory Tests Test 04/10/17 10:35 04/11/17 05:10 Blood Gas Puncture Site RT RADIAL Blood Gas Patient Temperature 98.6 Blood Gas HCO3 24 mmol/L Blood Gas Base Excess -0.6 mmol/L Blood Gas Oxygen Saturation 95 % Arterial Blood pH 7.34 Arterial Blood Partial Pressure CO2 46 mmHg Arterial Blood Partial Pressure O2 97 mmHg Arterial Blood Oxygen Content 15.6 Vol % Arterial Blood Carboxyhemoglobin 0.8 % Arterial Blood Methemoglobin 1.2 % Blood Gas Hemoglobin 11.6 G/DL Oxygen Delivery Device VENTILATOR Blood Gas Ventilator Setting CPAP 5/10PS Blood Gas Inspired Oxygen 40 % White Blood Count 13.9 TH/MM3 Red Blood Count 3.86 MIL/MM3 Hemoglobin 11.3 GM/DL Hematocrit 34.4 % Mean Corpuscular Volume 89.1 FL Mean Corpuscular Hemoglobin 29.3 PG Mean Corpuscular Hemoglobin Concent 32.9 % Red Cell Distribution Width 14.6 % Platelet Count 133 TH/MM3 Mean Platelet Volume 10.8 FL Neutrophils (%) (Auto) 93.9 % Lymphocytes (%) (Auto) 2.0 % Monocytes (%) (Auto) 4.1 % Eosinophils (%) (Auto) 0.0 % Basophils (%) (Auto) 0.0 % Neutrophils # (Auto) 13.0 TH/MM3 Lymphocytes # (Auto) 0.3 TH/MM3 Monocytes # (Auto) 0.6 TH/MM3 Eosinophils # (Auto) 0.0 TH/MM3 Basophils # (Auto) 0.0 TH/MM3 CBC Comment DIFF FINAL Differential Comment Blood Urea Nitrogen 33 MG/DL Creatinine 0.79 MG/DL Random Glucose 142 MG/DL Total Protein 7.0 GM/DL Albumin 3.2 GM/DL Calcium Level 8.8 MG/DL Alkaline Phosphatase 82 U/L Aspartate Amino Transf (AST/SGOT) 57 U/L Alanine Aminotransferase (ALT/SGPT) 70 U/L Total Bilirubin 0.3 MG/DL Sodium Level 138 MEQ/L Potassium Level 4.3 MEQ/L Chloride Level 104 MEQ/L Carbon Dioxide Level 25.4 MEQ/L Anion Gap 9 MEQ/L Estimat Glomerular Filtration Rate 71 ML/MIN Imaging Last Impressions Liver Ultrasound 04/09/17 0000 Signed Impressions: Service Date/Time: Sunday, April 09, 2017 10:48 - CONCLUSION: Surgical absence of gallbladder. Multiple bilateral renal cysts. Liver appears lower limits of normal in size with mildly increased echogenicity but no evidence of dilated ducts or focal lesion. small right pleural effusion Wolfgang Dooley MD Chest X-Ray 04/08/17 1306 Signed Impressions: Service Date/Time: March 13:16 - CONCLUSION: Lungs are grossly intact. ET tube in good position. Pacemaker good position. Danielito Trinidad MD Objective Remarks GENERAL: Patient is 71 yo sitting in bed in NAD SKIN: Warm and dry. HEAD: Normocephalic. EYES: No scleral icterus. No injection or drainage. NECK: Supple, trachea midline. No JVD or lymphadenopathy. CARDIOVASCULAR: Irregularly irregular without murmurs, gallops, or rubs. RESPIRATORY: Breath sounds equal bilaterally. No accessory muscle use. Overall diminished GASTROINTESTINAL: Abdomen soft, non-tender, nondistended. MUSCULOSKELETAL: No cyanosis, or edema. Neuro: Awake A/P Problem List: (1) Acute respiratory failure with hypoxia and hypercapnia ICD Code: J96.01 - Acute respiratory failure with hypoxia; J96.02 - Acute respiratory failure with hypercapnia (2) Chronic obstructive pulmonary disease ICD Code: J44.9 - Chronic obstructive pulmonary disease, unspecified (3) Metabolic acidosis ICD Code: E87.2 - Acidosis (4) Lactic acidosis ICD Code: E87.2 - Acidosis (5) Atrial fibrillation with RVR ICD Code: I48.91 - Unspecified atrial fibrillation (6) Hyperglycemia ICD Code: R73.9 - Hyperglycemia, unspecified Assessment and Plan NEUROLOGY Awake and alert PULMONOLOGY Acute hypoxic/hypercapnic respiratory failure Chronic obstructive pulmonary disease Continue with oxygen keep sat >92% 92% Duo nebs every 4 hours and every 2 hours as needed Pulm eval Solu-Medrol 40 mg every 8 hours NIPPV for resp distress CARDIOLOGY Mild elevated trop Atrial fibrillation Hypertension Monitor HR and BP keep MAP>65mmHg Continue with ASA, Lopressor 50mg Q12, Vasotec 10mg BID, ASA 162ng daily Cards is following- Dr. Ruano. Echo showed EF 50-55%, small-mod apical akinesis Patient declines anticoagulation therapy as she reports severe bleeding problems with them in the past. GASTROENTEROLOGY Elevated LFT;s Monitor LFT's (trending down), US liver: Surgical absence of gallbladder. Multiple bilateral renal cysts. Liver appears lower limits of normal in size with mildly increased echogenicity but no evidence of dilated ducts or focal lesion. small right pleural effusion Hepatitis profile pending. On PO diet Pepcid for GI protection Bowel regimen GENITOURINARY Hyponatremia- Resolved Monitor renal function, ICU electrolyte replacement protocol INFECTIOUS DISEASE Continue with Levaquin for COPD exac, Influenza testing is negative Sputum culture -normal resp juliet BC 04/08: NGTD ENDOCRINOLOGY Hyperglycemia Accu-Cheks with sliding scale insulin HEMATOLOGY Monitor CBC, Hemoccult positive GI is following patient however refused EGD and colonoscopy. PROPHYLAXIS DVT prevention with sequential compression devices,subQ heparin held for Hemoccult positive stool GI protection with IV Pepcid LINES Peripheral IVs CODE STATUS Full code Level 3 Karine Huerta MD Apr 11, 2017 09:09
[2017-04-11] MEDS ORDERED: ACETAMINOPHEN 325 MG TAB PO PRN (10:30)
--- NOTE | 2017-04-11 14:10 | HHI.GIFU ---
Subjective Remarks Patient is resting in bed, denies any more GI bleeding. Still not interested in doing EGD/colonoscopy inpatient unless necessary (Fredis Mcelroy) Objective Vitals I&O Vital Signs Date Time Temp Pulse Resp B/P (MAP) Pulse Ox O2 Delivery O2 Flow Rate FiO2 04/11/17 12:13 28 04/11/17 12:00 97.6 85 59 137/104 (115) 90 04/11/17 12:00 85 04/11/17 10:00 76 04/11/17 08:00 92 04/11/17 08:00 97.7 92 21 167/77 (107) 99 04/11/17 07:56 96 Nasal Cannula 2.00 04/11/17 06:00 87 04/11/17 04:00 97.5 85 23 164/73 (103) 92 04/11/17 04:00 85 04/11/17 03:33 99 40 04/11/17 03:32 99 BiPAP 04/11/17 02:00 86 04/11/17 01:16 98 40 04/11/17 00:00 98.3 94 23 148/65 (92) 97 04/11/17 00:00 94 04/10/17 23:28 94 Nasal Cannula 3.00 04/10/17 22:20 100 40 04/10/17 22:00 94 04/10/17 20:00 109 04/10/17 20:00 98.5 109 28 156/72 (100) 96 04/10/17 19:42 94 Nasal Cannula 3.00 04/10/17 18:00 103 04/10/17 16:00 98.7 119 26 173/73 (106) 90 04/10/17 16:00 111 04/10/17 15:00 93 30 I/O 04/10/17 04/10/17 04/10/17 04/11/17 04/11/17 04/11/17 07:00 15:00 23:00 07:00 15:00 23:00 Intake Total 240 ml Output Total 300 ml Balance -300 ml 240 ml Intake Oral 240 ml Output Urine Total 300 ml # Voids 7 Laboratory Laboratory Tests Test 04/11/17 05:10 White Blood Count 13.9 Red Blood Count 3.86 Hemoglobin 11.3 Hematocrit 34.4 Mean Corpuscular Volume 89.1 Mean Corpuscular Hemoglobin 29.3 Mean Corpuscular Hemoglobin Concent 32.9 Red Cell Distribution Width 14.6 Platelet Count 133 Mean Platelet Volume 10.8 Neutrophils (%) (Auto) 93.9 Lymphocytes (%) (Auto) 2.0 Monocytes (%) (Auto) 4.1 Eosinophils (%) (Auto) 0.0 Basophils (%) (Auto) 0.0 Neutrophils # (Auto) 13.0 Lymphocytes # (Auto) 0.3 Monocytes # (Auto) 0.6 Eosinophils # (Auto) 0.0 Basophils # (Auto) 0.0 CBC Comment DIFF FINAL Differential Comment Blood Urea Nitrogen 33 Creatinine 0.79 Random Glucose 142 Total Protein 7.0 Albumin 3.2 Calcium Level 8.8 Alkaline Phosphatase 82 Aspartate Amino Transf (AST/SGOT) 57 Alanine Aminotransferase (ALT/SGPT) 70 Total Bilirubin 0.3 Sodium Level 138 Potassium Level 4.3 Chloride Level 104 Carbon Dioxide Level 25.4 Anion Gap 9 Estimat Glomerular Filtration Rate 71 Date/Time Source Procedure Growth Status 04/08/17 13:32 Blood Peripheral Aerobic Blood Culture - Preliminary NO GROWTH IN 3 DAYS Resulted 04/08/17 13:32 Blood Peripheral Anaerobic Blood Culture - Preliminary NO GROWTH IN 3 DAYS Resulted 04/09/17 12:30 Stool Stool Stool Occult Blood (VENANCIO) - Final HEMOCCULT POSITIVE Complete 04/08/17 16:21 Sputum Endotracheal Gram Stain - Final Complete 04/08/17 16:21 Sputum Endotracheal Sputum Culture - Final HEAVY GROWTH NORMAL RESPIRATORY SHARLA Complete Imaging Last Impressions Liver Ultrasound 04/09/17 0000 Signed Impressions: Service Date/Time: Sunday, April 09, 2017 10:48 - CONCLUSION: Surgical absence of gallbladder. Multiple bilateral renal cysts. Liver appears lower limits of normal in size with mildly increased echogenicity but no evidence of dilated ducts or focal lesion. small right pleural effusion Wolfgang Dooley MD Chest X-Ray 04/08/17 1306 Signed Impressions: Service Date/Time: March 13:16 - CONCLUSION: Lungs are grossly intact. ET tube in good position. Pacemaker good position. Danielito Trinidad MD Physical Exam HEENT: normocephalic; atraumatic; no jaundice. Throat is clear. CHEST: Expiratory Wheezing CARDIAC: Regular rate and rhythm ABDOMEN: Soft, nondistended, nontender; no hepatosplenomegaly; bowel sounds are present in all four quadrants. EXTREMITIES: No clubbing, cyanosis, or edema. SKIN: Normal; no rash; no jaundice. FIELD REP: No focal deficits; alert and oriented times three. (Fredis Mcelroy) Assessment and Plan Plan - Heme (+) stools- Hgb today is 11.6 which is a drop from 13.4. Pt reports having rectal bleed about 2 days ago 2X but non since. Denies nausea, hematemesis, abd pain. States she has been constipated. According to the nurse, pt had emesis in the ED and required decompression. Pt is currently resting in bed, denies much of GI issues. Not interested in doing EGD/colonoscopy at the present time. Patient was established with Dr. hCung and had EGD/colonoscopy last yr. Currently is transferring care to Dr. Payne but neither one come to [facility], there fore will purse with evaluation. Patient states had hx of rectal bleeding approx. a year ago due to being on Xarelto, but that was discontinued. States she has received blood transfusion about 6 months ago. - Elevated LFTs- these are trending down, hepatitis panel pending. US showed surgical absence of gallbladder. Multiple bilateral renal cysts. Liver appears lower limits of normal in size with mildly increased echogenicity but no evidence of dilated ducts or focal lesion. small right pleural effusion. will monitor for now - Elevated troponin- cardiology on the case - lung cancer s/p radiation following with Dr. Mcelroy - hx of , bladder cancer, breast cancer - Respiratory failure- s/p intubation and now has been extubated 04/11/17- no more gi bleed, hgb today is 11.3 which is stable Plan: - Diet per attending - Currently pt not interested in doing EGD/colonoscopy stating she just had one done and rather follow as an OP with Dr. Payne as he has her medical records but pt agreed that if she develops active bleed, she will consider Inpatient evaluation - Monitor hh - Notify GI for active bleed - Await hepatitis panel - Monitor lfts - Supportive care - Patient seen and examined by Dr. Durán and myself and this note is written on his behalf. (Fredis Mcelroy) Physician Comments Patient seen and examined Agree with above Continue with current supportive care Monitor labs Await hepatitis panel (Santhosh Durán MD) NaviFredis CUEVA Apr 11, 2017 14:09 Santhosh Durán MD Apr 11, 2017 22:21
[2017-04-11] MEDS: LEVOFLOXACIN 750 MG PREMIX INJ 150 ML IV SCH (17:05)
--- NOTE | 2017-04-11 17:46 | MB ---
cc: SANGITA KOO DATE OF CONSULTATION: 04/11/2017. REASON FOR CONSULTATION: COPD and respiratory failure. HISTORY OF PRESENT ILLNESS: This is a 71-year-old lady with a longstanding history of COPD and history for carcinoma of the lung who has been experiencing shortness of breath for the past two to three days. The patient became markedly worse on and then she was brought to the emergency room in severe respiratory distress. She was wheezing severely and was poorly responsive and was brought by [facility] and had agonal respirations for which she had to be intubated and placed on ventilator support. She was then placed on 100% oxygen and subsequently given IV steroids, bronchodilators. The cardiac rhythm showed atrial fibrillation with rapid ventricular response and Cardizem was given and the patient was then slowly weaned off the respirator over the next 24 hours. Presently she is extubated. She is on oxygen via nasal cannula and conversing and is mildly short of breath and does have a cough and brings up a little whitish mucus. She denies fevers or chills or hemoptysis. PAST MEDICAL HISTORY: The patient's past history includes: 1. History for COPD with emphysema. 2. History of nonsmall cell lung cancer. 3. History for bladder cancer. 4. History for breast cancer status post radiation and chemotherapy. 5. She has had atrial fibrillation and permanent pacemaker placement. 6. She has had a history for a cholecystectomy. 7. Tonsillectomy. 8. Right shoulder repair. 9. Bladder surgery for cancer. 10. Breast lumpectomy. HABITS: The patient smoked half to one-pack per day and did so for over 45 years. No significant alcohol. FAMILY HISTORY: Family history is noncontributory MEDICATIONS: List was reviewed. REVIEW OF SYSTEMS: The patient has hoarseness, wheezing, cough and congestion. No fevers or chills. She has epigastric distress. She has no urinary symptoms. No leg or calf muscle pains. She has some joint pains of her extremities and back pain. PHYSICAL EXAMINATION: GENERAL: This is an elderly averagely built white female is dyspneic at rest. VITAL SIGNS: Her blood pressure is 110/60, pulse 80, respirations 22, temperature 98.2. HEAD, EYES, EARS, NOSE, THROAT: Head normocephalic. The pupils are reactive and equal. Tongue is moist. Throat was clear. Nasal mucosa edematous. Ears have no inflammation. NECK: The neck has no bruits or thyroid enlargement. No lymphadenopathy. CHEST: Equal movements with percussion note resonant throughout. Expiratory wheezes heard throughout both lung [place]. Prolonged expirations. HEART: Heart sounds are irregular. S1-S2. No murmur. ABDOMEN: Abdomen soft and protuberant without masses. No organomegaly or tenderness. The bowel sounds are active. EXTREMITIES: Varicosities. No edema. No calf tenderness. NEUROLOGIC: Reflexes are 1+ with no gross motor deficits. Cranial nerves are grossly intact. SKIN: No lesions. IMPRESSION: 1. Resolved acute respiratory failure with hypercapnia and hypoxia. 2. Severe COPD with emphysema. 3. History of atrial fibrillation and rapid ventricular response. 4. COPD with emphysema. 5. History of breast cancer and lung cancer. PLAN: 1. The patient will be placed on O2 at 3 liters. 2. Solu-Medrol will be tapered down to 20 milligrams twice a day since she does not tolerate steroids very well. 3. Continue with antibiotic therapy as ordered. 4. Nebulized DuoNeb solution added four times a day. 5. Symbicort 160 / 4.5 two puffs twice a day to be added as well. 6. A follow up chest x-ray to be done. Thank you Dr. Hernandez for this consultation. MD ANDREW [place]/MERNA /4:34 PM /5:32 PM
[2017-04-11] MEDS: ALPRAZolam 0.25 MG TAB PO PRN (20:58)
[2017-04-12] VITALS (26 sets, daily range): BP systolic 110–196; BP diastolic 55–83; PULSE 80–130; RESP 18–38; TEMP 97.3–98.9; O2SAT 92–100
[2017-04-12] MEDS: RESP: ALBUTEROL 2.5 MG/IPRATROPIUM 0.5 MG NEB (SCH) INH ×4 (00:05→12:08)
[2017-04-12] MEDS: CHLORHEXIDINE GLUCONATE 2 % 1 PACK (2 CLOTHS) TOP SCH (00:15)
[2017-04-12] MEDS: INSULIN NovoLIN REGULAR SUPPLEMENTAL SCALE SQ SCH ×5 (03:22→20:00)
[2017-04-12] MEDS: hydrALAZINE HCL 20 MG/ML VIAL IV PRN (06:40)
[2017-04-12 07:01] LABS: AUTOMATED NEUTROPHIL # 14.8 TH/MM3 (1.8-7.7); HEMATOCRIT 37.6 % (35.0-46.0); HEMOGLOBIN 12.3 GM/DL (11.6-15.3); LYMPH % 2.6 % (9.0-44.0); LYMPHOCYTE # 0.4 TH/MM3 (1.0-4.8); MEAN CELL VOLUME 88.7 FL (80.0-100.0); MEAN CORPUSCULAR HEMOGLOBIN 29.1 PG (27.0-34.0); MEAN CORPUSCULAR HGB CONC 32.8 % (32.0-36.0); MEAN PLATELET VOLUME 10.4 FL (7.0-11.0); MONO % 7.4 % (0.0-8.0); MONOCYTE # 1.2 TH/MM3 (0-0.9); PLATELET COUNT 161 TH/MM3 (150-450); RED BLOOD COUNT 4.24 MIL/MM3 (4.00-5.30); RED CELL DISTRIBUTION WIDTH 14.5 % (11.6-17.2); WHITE BLOOD COUNT 16.4 TH/MM3 (4.0-11.0)
[2017-04-12] MEDS: DILTIAZEM HCL 60 MG TAB PO SCH ×3 (07:45→18:00)
--- NOTE | 2017-04-12 07:45 | HHI.CCPN ---
Subjective Remarks/Hospital Course Is a 72-year-old female who is brought to the emergency department by EMS because of shortness of breath. Patient is intubated and sedated at this time. Information was taken from medical records, nursing staff, ER physician. Records indicate that the patient was tripoding with audible wheeze. When she was in the ambulance he went unconscious and had assist ventilations with bag valve mask. Upon arrival her eyes are closed, she was nonverbal with agonal respirations. Patient was adequately intubated for respiratory support. Upon further evaluation and discussion with the ER physician. The patient's name is Roxanna Harris. Her primary medical doctor Dr. Dumont. Her department administrator Dr. Johnston. Patient has history of COPD, lung status, and has had previous admissions with intubation due to chronic obstructive pulmonary disease exacerbations. The patient does continue to still smoke. Recently she has had a cough with cold symptoms. On presentation the patient was in atrial fibrillation with RVR and patient was administered Cardizem, however heart rate controlled this time. Blood pressure is too low for maintenance of Cardizem drip due to propofol. Will adjust patient to accommodate sedation and blood pressure. ER physician notified critical care team who graciously accepted the patient to their service. Patient be transferred to the main ICU for continued care and management. 04/09 Patient is on Diprivan and Fentanyl drip however she is awake. Afebrile. On Cardizem drip 5mg/hr 04/10 No events overnight. Awake and alert on CPAP with PS 10, PEEP:5 FIO2 40%. Off Cardizem drip. 04/11 Patient s/p extubation yesterday on 2L oxygen with good sats. Used BIPAP intermittently overnight. 03/23 Patient is on BIPAP 10/5 with 50% FIO2 , hypertensive. Objective Vital Signs Date Time Temp Pulse Resp B/P (MAP) Pulse Ox O2 Delivery O2 Flow Rate FiO2 04/12/17 06:00 106 04/12/17 04:00 98.8 26 184/82 (116) 97 04/12/17 03:50 40 04/12/17 02:55 Nasal Cannula 3.00 Intake and Output 04/12/17 04/12/17 04/13/17 08:00 16:00 00:00 Intake Total 300 ml Balance 300 ml Result Diagram: 04/12/17 0548 04/11/17 0510 Other Results Laboratory Tests Test 04/12/17 05:48 White Blood Count 16.4 TH/MM3 Red Blood Count 4.24 MIL/MM3 Hemoglobin 12.3 GM/DL Hematocrit 37.6 % Mean Corpuscular Volume 88.7 FL Mean Corpuscular Hemoglobin 29.1 PG Mean Corpuscular Hemoglobin Concent 32.8 % Red Cell Distribution Width 14.5 % Platelet Count 161 TH/MM3 Mean Platelet Volume 10.4 FL Neutrophils (%) (Auto) 90.0 % Lymphocytes (%) (Auto) 2.6 % Monocytes (%) (Auto) 7.4 % Eosinophils (%) (Auto) 0.0 % Basophils (%) (Auto) 0.0 % Neutrophils # (Auto) 14.8 TH/MM3 Lymphocytes # (Auto) 0.4 TH/MM3 Monocytes # (Auto) 1.2 TH/MM3 Eosinophils # (Auto) 0.0 TH/MM3 Basophils # (Auto) 0.0 TH/MM3 CBC Comment DIFF FINAL Differential Comment Imaging Last Impressions Liver Ultrasound 04/09/17 0000 Signed Impressions: Service Date/Time: Sunday, April 09, 2017 10:48 - CONCLUSION: Surgical absence of gallbladder. Multiple bilateral renal cysts. Liver appears lower limits of normal in size with mildly increased echogenicity but no evidence of dilated ducts or focal lesion. small right pleural effusion Wolfgang Dooley MD Chest X-Ray 04/08/17 1306 Signed Impressions: Service Date/Time: March 13:16 - CONCLUSION: Lungs are grossly intact. ET tube in good position. Pacemaker good position. Danielito Trinidad MD Objective Remarks GENERAL: Patient is 71 yo sitting in bed in NAD SKIN: Warm and dry. HEAD: Normocephalic. EYES: No scleral icterus. No injection or drainage. NECK: Supple, trachea midline. No JVD or lymphadenopathy. CARDIOVASCULAR: Irregularly irregular without murmurs, gallops, or rubs. RESPIRATORY: Breath sounds equal bilaterally. No accessory muscle use. Overall diminished GASTROINTESTINAL: Abdomen soft, non-tender, nondistended. MUSCULOSKELETAL: No cyanosis, or edema. Neuro: Awake A/P Problem List: (1) Acute respiratory failure with hypoxia and hypercapnia ICD Code: J96.01 - Acute respiratory failure with hypoxia; J96.02 - Acute respiratory failure with hypercapnia (2) Chronic obstructive pulmonary disease ICD Code: J44.9 - Chronic obstructive pulmonary disease, unspecified (3) Metabolic acidosis ICD Code: E87.2 - Acidosis (4) Lactic acidosis ICD Code: E87.2 - Acidosis (5) Atrial fibrillation with RVR ICD Code: I48.91 - Unspecified atrial fibrillation (6) Hyperglycemia ICD Code: R73.9 - Hyperglycemia, unspecified Assessment and Plan NEUROLOGY Awake and alert PULMONOLOGY Acute hypoxic/hypercapnic respiratory failure Chronic obstructive pulmonary disease Continue with oxygen keep sat >92% 92% Duo nebs every 4 hours and every 2 hours as needed Pulm is following-Dr. Johnston, check CXR Solu-Medrol 40 mg every 8 hours NIPPV for resp distress CARDIOLOGY Mild elevated trop Atrial fibrillation Hypertension Monitor HR and BP keep MAP>65mmHg Continue with ASA, Lopressor 50mg Q12, Vasotec 10mg BID, ASA 162ng daily, add Cardizem 60mg Q6 Cards is following- Dr. Ruano. Echo showed EF 50-55%, small-mod apical akinesis Patient declines anticoagulation therapy as she reports severe bleeding problems with them in the past. GASTROENTEROLOGY Elevated LFT;s Monitor LFT's (trending down), US liver: Surgical absence of gallbladder. Multiple bilateral renal cysts. Liver appears lower limits of normal in size with mildly increased echogenicity but no evidence of dilated ducts or focal lesion. small right pleural effusion Hepatitis profile pending. On PO diet Pepcid for GI protection Bowel regimen GENITOURINARY Hyponatremia- Resolved Monitor renal function, ICU electrolyte replacement protocol INFECTIOUS DISEASE Continue with Levaquin for COPD exac, Influenza testing is negative Sputum culture -normal resp juliet 04/08: NGTD ENDOCRINOLOGY Hyperglycemia Accu-Cheks with sliding scale insulin HEMATOLOGY Monitor CBC, Hemoccult positive GI is following patient however refused EGD and colonoscopy. PROPHYLAXIS DVT prevention with sequential compression devices,subQ heparin held for Hemoccult positive stool GI protection with IV Pepcid LINES Peripheral IVs CODE STATUS Full code Level 3 Karine Huerta MD Apr 12, 2017 07:45
[2017-04-12] MEDS: CHLORHEXIDINE 0.12% (ORAL KIT) 15 ML CUP MT SCH ×2 (08:00→20:00)
[2017-04-12] MEDS: ASPIRIN 81 MG CHEW TAB NG SCH (09:00)
[2017-04-12] MEDS: METOPROLOL TARTRATE 25 MG TAB NG SCH ×2 (09:00→21:00)
[2017-04-12] MEDS: DOCUSATE SODIUM 50 MG/SENNA 8.6 MG TAB PO SCH ×2 (09:00→21:00)
[2017-04-12] MEDS: BUDESONIDE-FORMOTEROL 160/4.5 MCG INHALER INH SCH ×2 (09:00→22:34)
[2017-04-12] MEDS: ENALAPRIL MALEATE 10 MG TAB PO SCH ×2 (09:00→21:00)
--- NOTE | 2017-04-12 09:02 | RADRPT ---
EXAM DATE/TIME: 04/12/2017 07:56 [facility] COMPARISON: CHEST SINGLE AP, April 08, 2017, 13:16. INDICATIONS : Shortness of breath. MEDICAL HISTORY : Chronic obstructive pulmonary disease. Carcinoma, lung. SURGICAL HISTORY : Pacemaker. ENCOUNTER: Subsequent ACUITY: 4 - 6 days PAIN SCORE: Non-responsive. LOCATION: Bilateral chest FINDINGS: The examination demonstrates advanced COPD changes and cardiomegaly. There is a transvenous pacer in good position. Changes are similar to previous dated 04/08/17. Patient has been extubated since previous exam. CONCLUSION: 1. COPD changes. Rajesh White MD on April 12, 2017 at 8:59 Board Certified Radiologist. This report was verified electronically.
[2017-04-12] MEDS: FAMOTIDINE 20 MG/2 ML VIAL IV PUSH SCH ×2 (09:13→22:35)
[2017-04-12] MEDS: methylPREDNISolone SOD SUCC 40 MG/1 ML VIAL IV PUSH SCH ×2 (09:13→22:36)
[2017-04-12] MEDS: SODIUM CHLORIDE 0.9% FLUSH 10 ML FLUSH IV FLUSH SCH ×2 (09:16→22:34)
[2017-04-12 09:38] LABS: ALBUMIN 3.4 GM/DL (3.4-5.0); ALKALINE PHOSPHATASE 94 U/L (45-117); ALT (GPT) 75 U/L (10-53); AST (GOT) 65 U/L (15-37); BLOOD UREA NITROGEN 29 MG/DL (7-18); CALCIUM 9.6 MG/DL (8.5-10.1); CREATININE 0.72 MG/DL (0.50-1.00); GLOMERULAR FILTRATION RATE 79 ML/MIN (>89); GLUCOSE,RANDOM 108 MG/DL (74-106); TOTAL BILIRUBIN ADULT 0.4 MG/DL (0.2-1.0); TOTAL PROTEIN 7.4 GM/DL (6.4-8.2)
[2017-04-12 09:39] LABS: BICARBONATE 28.7 MEQ/L (21.0-32.0); CHLORIDE 102 MEQ/L (98-107); SODIUM (NA) 138 MEQ/L (136-145)
[2017-04-12] MEDS ORDERED: DILTIAZEM HCL 25 MG/5 ML VIAL IV ONE ×2 (09:45→10:00)
[2017-04-12] MEDS ORDERED: HEPARIN SODIUM - SQ 10,000 UNITS/ML VIAL SQ SCH (09:45)
[2017-04-12] MEDS ORDERED: ceFAZolin 2 GM PREMIX 50 ML IV SCH (09:45)
--- NOTE | 2017-04-12 11:06 | HHI.GIFU ---
Subjective Remarks Pt resting in bed, on bipap, nonverbal, did not rouse to exam. at bedside. No obvious bleeding. (Suize Crisostomo) Objective Vitals I&O Vital Signs Date Time Temp Pulse Resp B/P (MAP) Pulse Ox O2 Delivery O2 Flow Rate FiO2 04/12/17 08:30 130 38 99 04/12/17 08:08 94 40 04/12/17 08:00 118 04/12/17 08:00 98.9 114 35 196/82 (120) 93 04/12/17 06:00 106 04/12/17 04:00 101 04/12/17 04:00 98.8 101 26 184/82 (116) 97 04/12/17 03:50 96 40 04/12/17 02:55 92 Nasal Cannula 3.00 04/12/17 02:00 80 04/12/17 00:45 96 30 04/12/17 00:00 86 04/12/17 00:00 98.8 86 24 192/82 (118) 97 04/11/17 22:00 84 04/11/17 20:00 82 04/11/17 20:00 97.9 82 33 161/91 (114) 100 04/11/17 19:52 92 Nasal Cannula 3.00 04/11/17 18:00 82 04/11/17 16:00 97.9 79 17 150/65 (93) 100 04/11/17 16:00 79 04/11/17 14:00 83 04/11/17 12:13 28 04/11/17 12:00 97.6 85 59 137/104 (115) 90 04/11/17 12:00 85 I/O 04/11/17 04/11/17 04/11/17 04/12/17 04/12/17 04/12/17 07:00 15:00 23:00 07:00 15:00 23:00 Intake Total 240 ml 900 ml 300 ml Balance 240 ml 900 ml 300 ml Intake Oral 240 ml 750 ml 300 ml IV Total 150 ml # Voids 7 4 5 # Bowel Movements 0 Laboratory Laboratory Tests Test 04/12/17 05:48 04/12/17 08:55 White Blood Count 16.4 Red Blood Count 4.24 Hemoglobin 12.3 Hematocrit 37.6 Mean Corpuscular Volume 88.7 Mean Corpuscular Hemoglobin 29.1 Mean Corpuscular Hemoglobin Concent 32.8 Red Cell Distribution Width 14.5 Platelet Count 161 Mean Platelet Volume 10.4 Neutrophils (%) (Auto) 90.0 Lymphocytes (%) (Auto) 2.6 Monocytes (%) (Auto) 7.4 Eosinophils (%) (Auto) 0.0 Basophils (%) (Auto) 0.0 Neutrophils # (Auto) 14.8 Lymphocytes # (Auto) 0.4 Monocytes # (Auto) 1.2 Eosinophils # (Auto) 0.0 Basophils # (Auto) 0.0 CBC Comment DIFF FINAL Differential Comment Blood Urea Nitrogen 29 Creatinine 0.72 Random Glucose 108 Total Protein 7.4 Albumin 3.4 Calcium Level 9.6 Alkaline Phosphatase 94 Aspartate Amino Transf (AST/SGOT) 65 Alanine Aminotransferase (ALT/SGPT) 75 Total Bilirubin 0.4 Sodium Level 138 Potassium Level 4.6 Chloride Level 102 Carbon Dioxide Level 28.7 Anion Gap 7 Estimat Glomerular Filtration Rate 79 Blood Gas Puncture Site RT RADIAL Blood Gas Patient Temperature 98.6 Blood Gas HCO3 30 Blood Gas Base Excess 4.5 Blood Gas Oxygen Saturation 88 Arterial Blood pH 7.36 Arterial Blood Partial Pressure CO2 53 Arterial Blood Partial Pressure O2 61 Arterial Blood Oxygen Content 15.1 Arterial Blood Carboxyhemoglobin 0.9 Arterial Blood Methemoglobin 1.3 Blood Gas Hemoglobin 12.2 Oxygen Delivery Device BIPAP Blood Gas Ventilator Setting IPAP 12/EPAP 5 Blood Gas Inspired Oxygen 40 Date/Time Source Procedure Growth Status 04/08/17 13:32 Blood Peripheral Aerobic Blood Culture - Preliminary NO GROWTH IN 3 DAYS Resulted 04/08/17 13:32 Blood Peripheral Anaerobic Blood Culture - Preliminary NO GROWTH IN 3 DAYS Resulted 04/09/17 12:30 Stool Stool Stool Occult Blood (VENANCIO) - Final HEMOCCULT POSITIVE Complete 04/08/17 16:21 Sputum Endotracheal Gram Stain - Final Complete 04/08/17 16:21 Sputum Endotracheal Sputum Culture - Final HEAVY GROWTH NORMAL RESPIRATORY SHARLA Complete Imaging Last Impressions Chest X-Ray 04/12/17 0000 Signed Impressions: Service Date/Time: Wednesday, April 12, 2017 07:56 - CONCLUSION: 1. COPD changes. Rajesh White MD Liver Ultrasound 04/09/17 0000 Signed Impressions: Service Date/Time: Sunday, April 09, 2017 10:48 - CONCLUSION: Surgical absence of gallbladder. Multiple bilateral renal cysts. Liver appears lower limits of normal in size with mildly increased echogenicity but no evidence of dilated ducts or focal lesion. small right pleural effusion Wolfgang Dooley MD Physical Exam HEENT: normocephalic; atraumatic; no jaundice. Throat is clear. CHEST:wheezes, rhonchi on bipap CARDIAC: RRR ABDOMEN: Soft, nondistended, nontender; no hepatosplenomegaly; bowel sounds are present in all four quadrants. EXTREMITIES: No clubbing, cyanosis, or edema. SKIN: Normal; no rash; no jaundice. 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 Denies nausea, hematemesis, abd pain. States she has been constipated. According to the nurse, pt had emesis in the ED and required decompression. Pt is currently resting in bed, denies much of GI issues. Not interested in doing EGD/colonoscopy at the present time. Patient was established with Dr. Chung and had EGD/colonoscopy last yr. Currently is transferring care to Dr. Payne but neither one come to [facility], there fore will purse with evaluation. Patient states had hx of rectal bleeding approx. a year ago due to being on Xarelto, but that was discontinued. States she has received blood transfusion about 6 months ago. - Elevated LFTs- these are trending down, hepatitis panel pending. US showed surgical absence of gallbladder. Multiple bilateral renal cysts. Liver appears lower limits of normal in size with mildly increased echogenicity but no evidence of dilated ducts or focal lesion. small right pleural effusion. will monitor for now - Elevated troponin- cardiology on the case - lung cancer s/p radiation following with Dr. Mcelroy - hx of , bladder cancer, breast cancer - Respiratory failure- s/p intubation and now has been extubated 04/11/17- no more gi bleed, hgb today is 11.3 which is stable 04/12/17 - no active bleeding, HH now WNL WBC increased. pt on bipap, lethargic today. hep panel still pending. LFTs trending down Plan: - Diet per attending - pt does not want EGD/colonoscopy at this time, wants to f/u OP with Dr. Payne as he has her medical records but pt previously agreed that if she develops active bleed, she will consider Inpatient evaluation - Monitor labs - Notify GI of active bleed - Await hepatitis panel - Monitor lfts - Supportive care - Patient seen and examined by Dr. Francis and myself and this note is written on his behalf. (Suzie Crisostomo) Physician Comments Seen and examined with SPA MANAGER, no active bleeding reported. Family at bedside. On Bi PAP. Doesnot want gi marie unless active bleeding. Fu with Dr. Payne upon DC. Discussed with Dr. Hernandez. Gi will sign off. Thank you (Yessi Francis MD) Suzie Crisostomo Apr 12, 2017 11:06 Yessi Francis MD Apr 12, 2017 13:50
[2017-04-12 11:45] LABS: HEPATITIS A AB IGM NEGATIVE (NEGATIVE); HEPATITIS B CORE AB IGM NEGATIVE (NEGATIVE); HEPATITIS B SURFACE ANTIGEN NEGATIVE (NEGATIVE); HEPATITIS C AB IgG NEGATIVE (NEGATIVE)
[2017-04-12] MEDS: LEVOFLOXACIN 750 MG PREMIX INJ 150 ML IV SCH (16:09)
--- NOTE | 2017-04-12 18:46 | HHI.PR ---
Subjective Remarks She is depressed. On BiPAP today and sats are 95. Output was good. Objective Vital Signs Date Time Temp Pulse Resp B/P (MAP) Pulse Ox O2 Delivery O2 Flow Rate FiO2 04/12/17 16:19 97 45 04/12/17 16:00 97.3 92 18 110/56 (74) 98 04/12/17 12:16 96 BiPAP 45 04/12/17 12:08 96 45 04/12/17 12:00 97.8 105 22 137/83 (101) 95 04/12/17 10:00 107 04/12/17 08:30 130 38 99 04/12/17 08:08 94 40 04/12/17 08:00 118 04/12/17 08:00 98.9 114 35 196/82 (120) 93 04/12/17 06:00 106 04/12/17 04:00 101 04/12/17 04:00 98.8 101 26 184/82 (116) 97 04/12/17 03:50 96 40 04/12/17 02:55 92 Nasal Cannula 3.00 04/12/17 02:00 80 04/12/17 00:45 96 30 04/12/17 00:00 86 04/12/17 00:00 98.8 86 24 192/82 (118) 97 04/11/17 22:00 84 04/11/17 20:00 82 04/11/17 20:00 97.9 82 33 161/91 (114) 100 04/11/17 19:52 92 Nasal Cannula 3.00 I/O 04/11/17 04/11/17 04/11/17 04/12/17 04/12/17 04/12/17 07:00 15:00 23:00 07:00 15:00 23:00 Intake Total 240 ml 900 ml 300 ml Balance 240 ml 900 ml 300 ml Intake Oral 240 ml 750 ml 300 ml IV Total 150 ml # Voids 7 4 5 # Bowel Movements 0 Result Diagram: 04/12/17 0548 04/12/17 0548 Objective Remarks GENERAL: This is an elderly averagely built white female is dyspneic at rest. HEAD, EYES, EARS, NOSE, THROAT: Head normocephalic. The pupils are reactive and equal. Tongue is moist. Throat was clear. Nasal mucosa clear. Ears have no inflammation. NECK: The neck has no bruits or thyroid enlargement. No lymphadenopathy. CHEST: Equal movements with percussion note resonant throughout. Expiratory wheezes heard throughout both lung [place]ork. Prolonged expirations. HEART: Heart sounds are irregular. S1-S2. No murmur. ABDOMEN: Abdomen soft and protuberant without masses. No organomegaly or tenderness. The bowel sounds are active. EXTREMITIES: Varicosities. No edema. No calf tenderness. NEUROLOGIC: Reflexes are 1+ with no gross motor deficits. SKIN: No lesions. Assessment and Plan Assessment and Plan IMPRESSION: 1. Resolved acute respiratory failure with hypercapnia and hypoxia. 2. Severe COPD with emphysema. 3. History of atrial fibrillation and rapid ventricular response. 4. COPD with emphysema. 5. History of breast cancer and lung cancer. Plan : 1. Continue on BIpAP at 45% FIO2. 2. Antibiotics as ordered 3. Solumedrol 40 mg IV Q8H 4. CXR,BMP in am. 5. Will wean to N/C 4 L in am. 6. Palliative care to see. Margie Johnston MD Apr 12, 2017 18:46
[2017-04-13] VITALS (16 sets, daily range): BP systolic 133–162; BP diastolic 57–75; PULSE 60–108; RESP 18–28; TEMP 97.5–98.2; O2SAT 94–100
[2017-04-13] MEDS: hydrALAZINE HCL 20 MG/ML VIAL IV PRN (02:33)
[2017-04-13] MEDS: INSULIN NovoLIN REGULAR SUPPLEMENTAL SCALE SQ SCH ×6 (04:00→20:00)
[2017-04-13] MEDS: CHLORHEXIDINE GLUCONATE 2 % 1 PACK (2 CLOTHS) TOP SCH (04:00)
[2017-04-13] MEDS: methylPREDNISolone SOD SUCC 40 MG/1 ML VIAL IV PUSH SCH ×3 (06:00→21:01)
[2017-04-13 07:41] LABS: AUTOMATED NEUTROPHIL # 10.5 TH/MM3 (1.8-7.7); BASOPHIL % 0.1 % (0.0-2.0); HEMATOCRIT 35.4 % (35.0-46.0); HEMOGLOBIN 11.8 GM/DL (11.6-15.3); LYMPH % 3.6 % (9.0-44.0); LYMPHOCYTE # 0.4 TH/MM3 (1.0-4.8); MEAN CORPUSCULAR HEMOGLOBIN 29.1 PG (27.0-34.0); MEAN CORPUSCULAR HGB CONC 33.4 % (32.0-36.0); MEAN PLATELET VOLUME 10.2 FL (7.0-11.0); MONO % 7.2 % (0.0-8.0); MONOCYTE # 0.8 TH/MM3 (0-0.9); NEUT % 89.1 % (16.0-70.0); PLATELET COUNT 127 TH/MM3 (150-450); RED BLOOD COUNT 4.07 MIL/MM3 (4.00-5.30); RED CELL DISTRIBUTION WIDTH 14.5 % (11.6-17.2); WHITE BLOOD COUNT 11.7 TH/MM3 (4.0-11.0)
[2017-04-13] MEDS: CHLORHEXIDINE 0.12% (ORAL KIT) 15 ML CUP MT SCH ×2 (08:00→20:00)
[2017-04-13 08:34] LABS: ALBUMIN 2.8 GM/DL (3.4-5.0); ALKALINE PHOSPHATASE 72 U/L (45-117); ALT (GPT) 55 U/L (10-53); AST (GOT) 52 U/L (15-37); BICARBONATE 33.2 MEQ/L (21.0-32.0); BLOOD UREA NITROGEN 26 MG/DL (7-18); CHLORIDE 101 MEQ/L (98-107); CREATININE 0.56 MG/DL (0.50-1.00); GLOMERULAR FILTRATION RATE 106 ML/MIN (>89); GLUCOSE,RANDOM 95 MG/DL (74-106); SODIUM (NA) 140 MEQ/L (136-145); TOTAL BILIRUBIN ADULT 0.5 MG/DL (0.2-1.0); TOTAL PROTEIN 6.4 GM/DL (6.4-8.2)
--- NOTE | 2017-04-13 08:39 | HHI.CCPN ---
Subjective Remarks/Hospital Course Is a 72-year-old female who is brought to the emergency department by EMS because of shortness of breath. Patient is intubated and sedated at this time. Information was taken from medical records, nursing staff, ER physician. Records indicate that the patient was tripoding with audible wheeze. When she was in the ambulance he went unconscious and had assist ventilations with bag valve mask. Upon arrival her eyes are closed, she was nonverbal with agonal respirations. Patient was adequately intubated for respiratory support. Upon further evaluation and discussion with the ER physician. The patient's name is Roxanna Harris. Her primary medical doctor Dr. Dumont. Her saw maker Dr. Johnston. Patient has history of COPD, lung status, and has had previous admissions with intubation due to chronic obstructive pulmonary disease exacerbations. The patient does continue to still smoke. Recently she has had a cough with cold symptoms. On presentation the patient was in atrial fibrillation with RVR and patient was administered Cardizem, however heart rate controlled this time. Blood pressure is too low for maintenance of Cardizem drip due to propofol. Will adjust patient to accommodate sedation and blood pressure. ER physician notified critical care team who graciously accepted the patient to their service. Patient be transferred to the main ICU for continued care and management. 04/09 Patient is on Diprivan and Fentanyl drip however she is awake. Afebrile. On Cardizem drip 5mg/hr 04/10 No events overnight. Awake and alert on CPAP with PS 10, PEEP:5 FIO2 40%. Off Cardizem drip. 04/11 Patient s/p extubation yesterday on 2L oxygen with good sats. Used BIPAP intermittently overnight. 04/12 Patient is on BIPAP 10/5 with 50% FIO2 , hypertensive. 04/13 Patient was on BIPAP overnight. Afebrile. Objective Vital Signs Date Time Temp Pulse Resp B/P (MAP) Pulse Ox O2 Delivery O2 Flow Rate FiO2 04/13/17 07:32 100 45 04/13/17 06:00 100 04/13/17 04:00 97.9 18 143/70 (94) 04/12/17 12:16 BiPAP 04/12/17 02:55 3.00 Intake and Output 04/13/17 04/13/17 04/14/17 08:00 16:00 00:00 Intake Total 0 ml Balance 0 ml Result Diagram: 04/13/17 0643 04/12/17 0548 Other Results Laboratory Tests Test 04/12/17 08:55 04/13/17 06:43 Blood Gas Puncture Site RT RADIAL Blood Gas Patient Temperature 98.6 Blood Gas HCO3 30 mmol/L Blood Gas Base Excess 4.5 mmol/L Blood Gas Oxygen Saturation 88 % Arterial Blood pH 7.36 Arterial Blood Partial Pressure CO2 53 mmHg Arterial Blood Partial Pressure O2 61 mmHg Arterial Blood Oxygen Content 15.1 Vol % Arterial Blood Carboxyhemoglobin 0.9 % Arterial Blood Methemoglobin 1.3 % Blood Gas Hemoglobin 12.2 G/DL Oxygen Delivery Device BIPAP Blood Gas Ventilator Setting IPAP 12/EPAP 5 Blood Gas Inspired Oxygen 40 % White Blood Count 11.7 TH/MM3 Red Blood Count 4.07 MIL/MM3 Hemoglobin 11.8 GM/DL Hematocrit 35.4 % Mean Corpuscular Volume 87.0 FL Mean Corpuscular Hemoglobin 29.1 PG Mean Corpuscular Hemoglobin Concent 33.4 % Red Cell Distribution Width 14.5 % Platelet Count 127 TH/MM3 Mean Platelet Volume 10.2 FL Neutrophils (%) (Auto) 89.1 % Lymphocytes (%) (Auto) 3.6 % Monocytes (%) (Auto) 7.2 % Eosinophils (%) (Auto) 0.0 % Basophils (%) (Auto) 0.1 % Neutrophils # (Auto) 10.5 TH/MM3 Lymphocytes # (Auto) 0.4 TH/MM3 Monocytes # (Auto) 0.8 TH/MM3 Eosinophils # (Auto) 0.0 TH/MM3 Basophils # (Auto) 0.0 TH/MM3 CBC Comment AUTO DIFF Imaging Last Impressions Chest X-Ray 04/12/17 0000 Signed Impressions: Service Date/Time: Wednesday, April 12, 2017 07:56 - CONCLUSION: 1. COPD changes. Rajesh White MD Liver Ultrasound 04/09/17 0000 Signed Impressions: Service Date/Time: Sunday, April 09, 2017 10:48 - CONCLUSION: Surgical absence of gallbladder. Multiple bilateral renal cysts. Liver appears lower limits of normal in size with mildly increased echogenicity but no evidence of dilated ducts or focal lesion. small right pleural effusion Wolfgang Dooley MD Objective Remarks GENERAL: Patient is 71 yo sitting in bed in NAD SKIN: Warm and dry. HEAD: Normocephalic. EYES: No scleral icterus. No injection or drainage. NECK: Supple, trachea midline. No JVD or lymphadenopathy. CARDIOVASCULAR: Irregularly irregular without murmurs, gallops, or rubs. RESPIRATORY: Breath sounds equal bilaterally. No accessory muscle use. Overall diminished GASTROINTESTINAL: Abdomen soft, non-tender, nondistended. MUSCULOSKELETAL: No cyanosis, or edema. Neuro: Awake A/P Problem List: (1) Acute respiratory failure with hypoxia and hypercapnia ICD Code: J96.01 - Acute respiratory failure with hypoxia; J96.02 - Acute respiratory failure with hypercapnia (2) Chronic obstructive pulmonary disease ICD Code: J44.9 - Chronic obstructive pulmonary disease, unspecified (3) Metabolic acidosis ICD Code: E87.2 - Acidosis (4) Lactic acidosis ICD Code: E87.2 - Acidosis (5) Atrial fibrillation with RVR ICD Code: I48.91 - Unspecified atrial fibrillation (6) Hyperglycemia ICD Code: R73.9 - Hyperglycemia, unspecified Assessment and Plan NEUROLOGY Awake and alert PULMONOLOGY Acute hypoxic/hypercapnic respiratory failure Chronic obstructive pulmonary disease Continue with oxygen keep sat >92% Duo nebs every 4 hours and every 2 hours as needed Pulm is following-Dr. Johnston, Solu-Medrol 40 mg every 8 hours NIPPV for resp distress CXR yesterday showed COPD changes. Check ABG CARDIOLOGY Mild elevated trop Atrial fibrillation Hypertension Monitor HR and BP keep MAP>65mmHg Continue with ASA, Lopressor 50mg Q12, Vasotec 10mg BID, ASA 162ng daily, Cardizem 60mg Q6 Cards is following- Dr. Ruano. Echo showed EF 50-55%, small-mod apical akinesis Patient declines anticoagulation therapy as she reports severe bleeding problems with them in the past. GASTROENTEROLOGY Elevated LFT;s Monitor LFT's (trending down), US liver: Surgical absence of gallbladder. Multiple bilateral renal cysts. Liver appears lower limits of normal in size with mildly increased echogenicity but no evidence of dilated ducts or focal lesion. small right pleural effusion Hepatitis profile pending. On PO diet Pepcid for GI protection Bowel regimen GENITOURINARY Hyponatremia- Resolved Monitor renal function, ICU electrolyte replacement protocol INFECTIOUS DISEASE Continue with Levaquin for COPD exac till tomorrow to finish 7 day course ( 04/08 -04/14) Influenza testing is negative Sputum culture -normal resp juliet 04/08: NGTD ENDOCRINOLOGY Hyperglycemia Accu-Cheks with sliding scale insulin HEMATOLOGY Monitor CBC, Hemoccult positive GI is following patient however refused EGD and colonoscopy. PROPHYLAXIS DVT prevention with sequential compression devices,subQ heparin held for Hemoccult positive stool GI protection with IV Pepcid LINES Peripheral IVs CODE STATUS Full code Level 2 Karine Huerta MD Apr 13, 2017 08:39
[2017-04-13] MEDS: ENALAPRIL MALEATE 10 MG TAB PO SCH ×2 (09:00→20:50)
[2017-04-13] MEDS: DOCUSATE SODIUM 50 MG/SENNA 8.6 MG TAB PO SCH ×2 (09:00→20:57)
[2017-04-13] MEDS: BUDESONIDE-FORMOTEROL 160/4.5 MCG INHALER INH SCH ×2 (09:00→21:00)
[2017-04-13] MEDS: METOPROLOL TARTRATE 25 MG TAB NG SCH ×2 (09:08→20:50)
[2017-04-13] MEDS: FAMOTIDINE 20 MG/2 ML VIAL IV PUSH SCH ×2 (09:08→20:51)
[2017-04-13] MEDS: ASPIRIN 81 MG CHEW TAB NG SCH (09:08)
[2017-04-13] MEDS: SODIUM CHLORIDE 0.9% FLUSH 10 ML FLUSH IV FLUSH SCH ×2 (09:09→20:51)
[2017-04-13] MEDS: DILTIAZEM HCL 60 MG TAB PO SCH ×4 (09:09→20:50)
[2017-04-13] MEDS: RESP: ALBUTEROL 2.5 MG/IPRATROPIUM 0.5 MG NEB (PRN) INH ×3 (12:07→21:49)
--- NOTE | 2017-04-13 12:49 | HHI.PR ---
Subjective Remarks Alert and is better today.. On O2 N/C 3 L today and sats are 95. Poor intake. Objective Vital Signs Date Time Temp Pulse Resp B/P (MAP) Pulse Ox O2 Delivery O2 Flow Rate FiO2 04/13/17 10:00 92 04/13/17 09:20 96 Nasal Cannula 3.00 04/13/17 08:00 100 04/13/17 08:00 97.8 100 18 162/75 (104) 100 04/13/17 08:00 100 04/13/17 07:32 100 45 04/13/17 06:00 100 04/13/17 04:00 97.9 91 18 143/70 (94) 98 04/13/17 04:00 108 04/13/17 03:48 100 45 04/13/17 02:00 97 04/13/17 00:00 97.5 85 20 151/57 (88) 98 04/13/17 00:00 93 04/12/17 23:34 100 45 04/12/17 22:00 87 04/12/17 20:00 83 04/12/17 20:00 99 45 04/12/17 20:00 97.8 83 18 117/55 (75) 99 04/12/17 18:00 92 04/12/17 18:00 92 04/12/17 17:00 92 04/12/17 16:19 97 45 04/12/17 16:00 92 04/12/17 16:00 97.3 92 18 110/56 (74) 98 04/12/17 16:00 92 04/12/17 15:00 97 04/12/17 14:00 103 04/12/17 14:00 103 04/12/17 13:00 103 I/O 04/12/17 04/12/17 04/12/17 04/13/17 04/13/17 04/13/17 07:00 15:00 23:00 07:00 15:00 23:00 Intake Total 300 ml 150 ml 0 ml Balance 300 ml 150 ml 0 ml Intake Oral 300 ml 0 ml 0 ml IV Total 150 ml # Voids 5 2 3 # Bowel Movements 0 Result Diagram: 04/13/1743 04/13/17642 Objective Remarks GENERAL: This is an elderly averagely built white female is alert HEAD, EYES, EARS, NOSE, THROAT: Head normocephalic. The pupils are reactive and equal. Tongue is moist. Throat was clear. Nasal mucosa clear. Ears have no inflammation. NECK: The neck has no bruits or thyroid enlargement. No lymphadenopathy. CHEST: Equal movements with percussion note resonant throughout. Occ Basal crackles. Expiratory wheezes heard throughout both lung [place]. Prolonged expirations. HEART: Heart sounds are irregular. S1-S2. No murmur. ABDOMEN: Abdomen soft and protuberant without masses. No organomegaly or tenderness. The bowel sounds are active. EXTREMITIES: Varicosities. No edema. No calf tenderness. NEUROLOGIC: Reflexes are 1+ with no gross motor deficits. SKIN: No lesions. Assessment and Plan Assessment and Plan IMPRESSION: 1. Resolved acute respiratory failure with hypercapnia and hypoxia. 2. Severe COPD with emphysema. 3. History of atrial fibrillation and rapid ventricular response. 4. COPD with emphysema. 5. History of breast cancer and lung cancer. Plan : 1. Continue on O2 3 L 2. Antibiotics as ordered 3. Solumedrol 40 mg IV Q8H 4. CBC ,BMP in am. 5. D/C BiPAP 6. Palliative care to see. Margie Johnston MD Apr 13, 2017 12:49
[2017-04-13] MEDS: LEVOFLOXACIN 750 MG PREMIX INJ 150 ML IV SCH (16:43)
[2017-04-13] MEDS: ALPRAZolam 0.25 MG TAB PO PRN (20:50)
[2017-04-14] VITALS (14 sets, daily range): BP systolic 110–135; BP diastolic 57–67; PULSE 59–78; RESP 16–21; TEMP 97.6–98.1; O2SAT 90–98
[2017-04-14] MEDS: DILTIAZEM HCL 60 MG TAB PO SCH ×4 (03:22→21:04)
[2017-04-14] MEDS: CHLORHEXIDINE GLUCONATE 2 % 1 PACK (2 CLOTHS) TOP SCH (04:00)
[2017-04-14] MEDS: INSULIN NovoLIN REGULAR SUPPLEMENTAL SCALE SQ SCH ×6 (04:00→21:08)
[2017-04-14] MEDS: methylPREDNISolone SOD SUCC 40 MG/1 ML VIAL IV PUSH SCH ×3 (06:18→21:03)
[2017-04-14] MEDS: RESP: ALBUTEROL 2.5 MG/IPRATROPIUM 0.5 MG NEB (PRN) INH (07:48)
[2017-04-14] MEDS: CHLORHEXIDINE 0.12% (ORAL KIT) 15 ML CUP MT SCH ×2 (08:00→20:00)
[2017-04-14] MEDS: DOCUSATE SODIUM 50 MG/SENNA 8.6 MG TAB PO SCH ×2 (09:00→21:04)
[2017-04-14] MEDS: ENALAPRIL MALEATE 10 MG TAB PO SCH ×2 (09:00→21:04)
[2017-04-14] MEDS: FAMOTIDINE 20 MG/2 ML VIAL IV PUSH SCH ×2 (09:16→21:04)
[2017-04-14] MEDS: ASPIRIN 81 MG CHEW TAB NG SCH (09:16)
[2017-04-14] MEDS: SODIUM CHLORIDE 0.9% FLUSH 10 ML FLUSH IV FLUSH SCH ×2 (09:16→21:05)
[2017-04-14] MEDS: METOPROLOL TARTRATE 25 MG TAB NG SCH ×2 (09:16→21:06)
[2017-04-14] MEDS: BUDESONIDE-FORMOTEROL 160/4.5 MCG INHALER INH SCH ×2 (09:17→21:03)
--- NOTE | 2017-04-14 12:55 | HHI.PR ---
Subjective Remarks Alert and is up in bed... On O2 N/C 3 L today and sats are 97. Needs Food supplements. Objective Vital Signs Date Time Temp Pulse Resp B/P (MAP) Pulse Ox O2 Delivery O2 Flow Rate FiO2 04/14/17 10:00 69 04/14/17 08:00 97.6 65 20 129/67 (87) 90 04/14/17 08:00 95 Nasal Cannula 3.50 04/14/17 08:00 65 04/14/17 07:49 95 Nasal Cannula 5.00 04/14/17 06:00 60 04/14/17 04:00 62 04/14/17 04:00 97.9 62 17 127/67 (87) 98 04/14/17 02:00 59 04/14/17 00:00 59 04/14/17 00:00 98.1 59 16 117/57 (77) 95 04/13/17 22:00 60 04/13/17 20:18 95 Nasal Cannula 2.00 04/13/17 20:00 98.2 72 18 133/59 (83) 99 04/13/17 20:00 72 04/13/17 19:00 94 Nasal Cannula 3.00 04/13/17 18:00 92 04/13/17 16:00 92 04/13/17 16:00 98.0 92 28 148/70 (96) 94 04/13/17 14:00 81 I/O 04/13/17 04/13/17 04/13/17 04/14/17 04/14/17 04/14/17 07:00 15:00 23:00 07:00 15:00 23:00 Intake Total 0 ml 350 ml 120 ml Output Total 551 ml Balance 0 ml -201 ml 120 ml Intake Oral 0 ml 200 ml 120 ml IV Total 150 ml Output Urine Total 550 ml Stool Total 1 ml # Voids 3 3 1 # Bowel Movements 0 0 Result Diagram: 04/13/17 0643 04/13/17 0643 Objective Remarks GENERAL: This is an elderly averagely built white female is alert HEAD, EYES, EARS, NOSE, THROAT: Head normocephalic. The pupils are reactive and equal. Tongue is moist. Throat was clear. Nasal mucosa clear. Ears have no inflammation. NECK: The neck has no bruits or thyroid enlargement. No lymphadenopathy. CHEST: Equal movements with percussion note resonant throughout. Occ Basal crackles. Expiratory wheezes scattered. Prolonged expirations. HEART: Heart sounds are irregular. S1-S2. No murmur. ABDOMEN: Abdomen soft and protuberant without masses. No organomegaly or tenderness. The bowel sounds are active. EXTREMITIES: Varicosities. No edema. No calf tenderness. NEUROLOGIC: Reflexes are 1+ with no gross motor deficits. SKIN: No lesions. Assessment and Plan Assessment and Plan IMPRESSION: 1. Resolved acute respiratory failure with hypercapnia and hypoxia. 2. Severe COPD with emphysema. 3. History of atrial fibrillation and rapid ventricular response. 4. COPD with emphysema. 5. History of breast cancer and lung cancer. Plan : 1. Continue on O2 3 L 2. Antibiotics as ordered 3. Solumedrol 40 mg IV Q12H 4. CBC ,BMP in am. 5. Add Ensure 1 Can TID 6. PT Evaluation Margie Johnston MD Apr 14, 2017 12:55
[2017-04-14] MEDS: RESP: ALBUTEROL 2.5 MG/IPRATROPIUM 0.5 MG NEB (SCH) NEB ×2 (15:17→21:08)
[2017-04-14] MEDS: LEVOFLOXACIN 750 MG PREMIX INJ 150 ML IV SCH (16:36)
[2017-04-14] MEDS: ALPRAZolam 0.25 MG TAB PO PRN (21:04)
--- NOTE | 2017-04-14 23:49 | HHI.CCPN ---
Subjective Remarks/Hospital Course This is a 72-year-old female who is brought to the emergency department by EMS because of shortness of breath. Patient is intubated and sedated at this time. Information was taken from medical records, nursing staff , ER physician. Records indicate that the patient was tripoding with audible wheeze. When she was in the ambulance he went unconscious and had assist ventilations with bag valve mask. Upon arrival her eyes are closed, she was nonverbal with agonal respirations. Patient was adequately intubated for respiratory support. Upon further evaluation and discussion with the ER physician. The patient's name is Roxanna Harris. Her primary medical doctor Dr. Dumont. Her hospice superintendent Dr. Johnston. Patient has history of COPD, lung status, and has had previous admissions with intubation due to chronic obstructive pulmonary disease exacerbations. The patient does continue to still smoke. Recently she has had a cough with cold symptoms. On presentation the patient was in atrial fibrillation with RVR and patient was administered Cardizem, however heart rate controlled this time. Blood pressure is too low for maintenance of Cardizem drip due to propofol. Will adjust patient to accommodate sedation and blood pressure. ER physician notified critical care team who graciously accepted the patient to their service. Patient be transferred to the main ICU for continued care and management. 04/09 Patient is on Diprivan and Fentanyl drip however she is awake. Afebrile. On Cardizem drip 5mg/hr 04/10 No events overnight. Awake and alert on CPAP with PS 10, PEEP:5 FIO2 40%. Off Cardizem drip. 04/11 Patient s/p extubation yesterday on 2L oxygen with good sats. Used BIPAP intermittently overnight. 04/12 Patient is on BIPAP 10/5 with 50% FIO2 , hypertensive. 04/13 Patient was on BIPAP overnight. Afebrile. Subjective 04/14: Afebrile. Currently on 2-4 L nasal cannula. Tolerating diet. Objective Vital Signs Date Time Temp Pulse Resp B/P (MAP) Pulse Ox O2 Delivery O2 Flow Rate FiO2 04/14/17 22:00 78 04/14/17 21:08 98 Nasal Cannula 4.00 04/14/17 20:00 98.1 18 135/60 (85) 04/13/17 08:00 40 Intake and Output 04/14/17 04/14/17 04/15/17 08:00 16:00 00:00 Intake Total 120 ml 400 ml Output Total 475 ml Balance 120 ml -75 ml Result Diagram: 04/13/17 0643 04/13/17 0643 Other Results Microbiology Date/Time Source Procedure Growth Status 04/08/17 13:32 Blood Peripheral Aerobic Blood Culture - Final NO GROWTH IN 5 DAYS Complete 04/08/17 13:32 Blood Peripheral Anaerobic Blood Culture - Final NO GROWTH IN 5 DAYS Complete 04/09/17 12:30 Stool Stool Stool Occult Blood (VENANCIO) - Final HEMOCCULT POSITIVE Complete 04/08/17 16:21 Sputum Endotracheal Gram Stain - Final Complete 04/08/17 16:21 Sputum Endotracheal Sputum Culture - Final HEAVY GROWTH NORMAL RESPIRATORY JULIET Complete Imaging Last Impressions Chest X-Ray 04/12/17 0000 Signed Impressions: Service Date/Time: Wednesday, April 12, 2017 07:56 - CONCLUSION: 1. COPD changes. Rajesh White MD Liver Ultrasound 04/09/17 0000 Signed Impressions: Service Date/Time: Sunday, April 09, 2017 10:48 - CONCLUSION: Surgical absence of gallbladder. Multiple bilateral renal cysts. Liver appears lower limits of normal in size with mildly increased echogenicity but no evidence of dilated ducts or focal lesion. small right pleural effusion Wolfgang Dooley MD Objective Remarks GENERAL: Patient is 71 yo sitting resting in bed in no acute distress SKIN: Warm and dry. No rash HEAD: Normocephalic. EYES: No scleral icterus. No injection or drainage. NECK: Supple, trachea midline. No JVD or lymphadenopathy. CARDIOVASCULAR: Tachycardia, IR. S1, S2 no S4. Without murmurs, gallops, or rubs. RESPIRATORY: Breath sounds equal bilaterally. No accessory muscle use. Overall diminished GASTROINTESTINAL: Abdomen soft, non-tender, nondistended. MUSCULOSKELETAL: No new skin peripheral edema. Neuro: Awake. Cranial nerves II through XII appear grossly intact. Strength is equal symmetric. Normal sensation A/P Assessment and Plan NEUROLOGY/PSYCH Currently in acetaminophen 650 mg by mouth every 6 hours when necessary fever/ pain 1-5 Awake and alert PULMONOLOGY Acute hypoxic/hypercapnic respiratory failure Chronic obstructive pulmonary disease Continue with oxygen keep sat >92% Albuterol/ipratropium aerosols every 6 hours and albuterol aerosols every 2 hours as needed Connoronide/formoterol 160/4.5 2 puffs twice a day Pulm is following-Dr. Johnston, Methylprednisolone succinate 40 mg IV every 8 hours NIPPV for resp distress CXR ordered for a.m. 04/15 CARDIOLOGY Mild elevated trop Atrial fibrillation Hypertension Monitor HR and BP keep MAP>65mmHg Continue with metoprolol succinate 50mg Q12, lisinopril 10mg BID, ASA 162ng daily, diltiazem 60mg Q6 Cards has followed Dr. Ruano. Echo showed EF 50-55%, small-mod apical akinesis. PAP 34.4 mmHg Patient declines anticoagulation therapy as she reports severe bleeding problems with them in the past. GASTROENTEROLOGY Elevated transaminases Monitor LFT's (trending down), US liver: Surgical absence of gallbladder. Multiple bilateral renal cysts. Liver appears lower limits of normal in size with mildly increased echogenicity but no evidence of dilated ducts or focal lesion. small right pleural effusion Hepatitis profile pending. On PO diet Famotidine for GI protection Docusate sodium/senna 1 tablet twice a day for bowel regimen GENITOURINARY/FEN Hyponatremia- Resolved Monitor renal function, ICU electrolyte replacement protocol INFECTIOUS DISEASE Continue with levofloxacin for COPD exac to finish 7 day course ( 04/08-04/14) Influenza testing is negative Sputum culture -normal resp juliet 04/08: NGTD ENDOCRINOLOGY Hyperglycemia Accu-Cheks with sliding scale insulin Novulin R with Accu-Cheks before meals/at bedtime HEMATOLOGY Leukocytosis Thrombocytopenia History of bladder cancer History of non-small cell carcinoma of the lung History of breast cancer status post chemotherapy Monitor CBC, Hemoccult positive GI has followed patient however patient refused EGD and colonoscopy. Requesting Dr. Payne outpatient follow-up. PROPHYLAXIS DVT prevention with sequential compression devices,subQ heparin resume GI protection with by mouth Pepcid LINES Peripheral IVs CODE STATUS Full code Level 2 follow-up. Roman Moralez MD Apr 14, 2017 23:49
[2017-04-15] VITALS (12 sets, daily range): BP systolic 125–166; BP diastolic 60–77; PULSE 60–89; RESP 16–21; TEMP 97.4–98.6; O2SAT 94–100
[2017-04-15] MEDS: CHLORHEXIDINE GLUCONATE 2 % 1 PACK (2 CLOTHS) TOP SCH (03:32)
[2017-04-15] MEDS: DILTIAZEM HCL 60 MG TAB PO SCH ×4 (03:32→20:33)
--- NOTE | 2017-04-15 05:03 | RADRPT ---
EXAM DATE/TIME: 04/15/2017 03:47 [facility] COMPARISON: CHEST SINGLE AP, April 12, 2017, 7:56. INDICATIONS : Shortness of breath, possible pulmonary disease. MEDICAL HISTORY : Chronic obstructive pulmonary disease. Carcinoma, lung. SURGICAL HISTORY : Pacemaker. ENCOUNTER: Subsequent ACUITY: 1 week PAIN SCORE: Non-responsive. LOCATION: Bilateral chest FINDINGS: Minimal patchy infiltrates in the left upper and left lower lung similar to prior. The right lung is clear. The heart is normal size. Both hemidiaphragms are well delineated. CONCLUSION: Stable patchy infiltrates upper and lower left lung. Jesus Perez MD on April 15, 2017 at 5:00 Board Certified Radiologist. This report was verified electronically.
[2017-04-15] MEDS: methylPREDNISolone SOD SUCC 40 MG/1 ML VIAL IV PUSH SCH ×2 (07:34→20:34)
[2017-04-15 07:36] LABS: ALBUMIN 2.7 GM/DL (3.4-5.0); ALKALINE PHOSPHATASE 62 U/L (45-117); ALT (GPT) 40 U/L (10-53); AST (GOT) 25 U/L (15-37); BICARBONATE 31.8 MEQ/L (21.0-32.0); BLOOD UREA NITROGEN 32 MG/DL (7-18); CALCIUM 8.5 MG/DL (8.5-10.1); CHLORIDE 99 MEQ/L (98-107); CREATININE 0.71 MG/DL (0.50-1.00); GLOMERULAR FILTRATION RATE 81 ML/MIN (>89); GLUCOSE,RANDOM 240 MG/DL (74-106); MAGNESIUM 2.1 MG/DL (1.5-2.5); PHOSPHORUS 3.1 MG/DL (2.5-4.9); SODIUM (NA) 137 MEQ/L (136-145); TOTAL BILIRUBIN ADULT 0.3 MG/DL (0.2-1.0); TOTAL PROTEIN 5.9 GM/DL (6.4-8.2)
[2017-04-15] MEDS: CHLORHEXIDINE 0.12% (ORAL KIT) 15 ML CUP MT SCH ×2 (08:00→20:00)
[2017-04-15] MEDS: RESP: ALBUTEROL 2.5 MG/IPRATROPIUM 0.5 MG NEB (SCH) NEB ×3 (08:11→20:00)
[2017-04-15] MEDS: BUDESONIDE-FORMOTEROL 160/4.5 MCG INHALER INH SCH ×2 (08:29→21:53)
[2017-04-15] MEDS: ENALAPRIL MALEATE 10 MG TAB PO SCH ×2 (08:30→20:33)
[2017-04-15] MEDS: ASPIRIN 81 MG CHEW TAB NG SCH (08:30)
[2017-04-15] MEDS: DOCUSATE SODIUM 50 MG/SENNA 8.6 MG TAB PO SCH ×2 (08:30→20:37)
[2017-04-15] MEDS: INSULIN NovoLIN REGULAR SUPPLEMENTAL SCALE SQ SCH ×5 (08:31→21:15)
[2017-04-15] MEDS: METOPROLOL TARTRATE 25 MG TAB NG SCH (08:31)
[2017-04-15] MEDS: SODIUM CHLORIDE 0.9% FLUSH 10 ML FLUSH IV FLUSH SCH ×2 (08:31→20:34)
[2017-04-15 08:41] LABS: AUTOMATED NEUTROPHIL # 7.9 TH/MM3 (1.8-7.7); HEMOGLOBIN 11.8 GM/DL (11.6-15.3); LYMPH % 3.3 % (9.0-44.0); LYMPHOCYTE # 0.3 TH/MM3 (1.0-4.8); MEAN CELL VOLUME 86.1 FL (80.0-100.0); MEAN CORPUSCULAR HGB CONC 33.7 % (32.0-36.0); MEAN PLATELET VOLUME 9.1 FL (7.0-11.0); MONOCYTE # 0.5 TH/MM3 (0-0.9); NEUT % 90.7 % (16.0-70.0); PLATELET COUNT 142 TH/MM3 (150-450); RED BLOOD COUNT 4.06 MIL/MM3 (4.00-5.30); RED CELL DISTRIBUTION WIDTH 14.3 % (11.6-17.2); WHITE BLOOD COUNT 8.7 TH/MM3 (4.0-11.0)
--- NOTE | 2017-04-15 12:52 | HHI.PR ---
Subjective Remarks Alert and is up .On O2 N/C 3 L today and sats are 97. No SoB at rest. Needs Food supplements. Objective Vital Signs Date Time Temp Pulse Resp B/P (MAP) Pulse Ox O2 Delivery O2 Flow Rate FiO2 04/15/17 12:00 70 04/15/17 12:00 98.3 60 21 133/63 (86) 98 04/15/17 10:00 62 04/15/17 08:11 96 Nasal Cannula 3.00 04/15/17 08:00 63 04/15/17 08:00 98.6 63 17 166/77 (106) 100 04/15/17 07:00 98 Nasal Cannula 3.00 04/15/17 06:00 60 04/15/17 04:00 63 04/15/17 04:00 98.2 63 17 158/67 (97) 95 04/15/17 02:00 60 04/15/17 00:00 98.0 71 16 125/60 (81) 96 04/15/17 00:00 71 04/14/17 22:00 78 04/14/17 21:08 98 Nasal Cannula 4.00 04/14/17 20:00 62 04/14/17 20:00 98.1 62 18 135/60 (85) 97 04/14/17 19:00 62 Nasal Cannula 3.00 04/14/17 18:00 67 04/14/17 16:00 97.6 59 19 125/58 95 04/14/17 16:00 59 04/14/17 14:00 60 I/O 04/14/17 04/14/17 04/14/17 04/15/17 04/15/17 04/15/17 07:00 15:00 23:00 07:00 15:00 23:00 Intake Total 120 ml 400 ml 120 ml Output Total 475 ml Balance 120 ml -75 ml 120 ml Intake Oral 120 ml 400 ml 120 ml Output Urine Total 475 ml # Voids 1 2 # Bowel Movements 0 1 1 Result Diagram: 04/15/17 0825 04/15/17 0547 Objective Remarks GENERAL: This is an elderly averagely built white female is alert and in no distress HEAD, EYES, EARS, NOSE, THROAT: Head normocephalic. The pupils are reactive and equal. Tongue is moist. Throat was clear. Nasal mucosa clear. Ears have no inflammation. NECK: The neck has no bruits or thyroid enlargement. No lymphadenopathy. CHEST: Equal movements with percussion note resonant throughout. Occ Basal crackles. Expiratory wheezes scattered. HEART: Heart sounds are irregular. S1-S2. No murmur. ABDOMEN: Abdomen soft and protuberant without masses. No organomegaly or tenderness. The bowel sounds are active. EXTREMITIES: Varicosities. No edema. No calf tenderness. NEUROLOGIC: Reflexes are 1+ with no gross motor deficits. SKIN: No lesions. Assessment and Plan Assessment and Plan IMPRESSION: 1. Resolved acute respiratory failure with hypercapnia and hypoxia. 2. Severe COPD with emphysema. 3. History of atrial fibrillation and rapid ventricular response. 4. COPD with emphysema. 5. History of breast cancer and lung cancer. Plan : 1. Continue on O2 3 L 2. Antibiotics as ordered 3. Solumedrol 40 mg IV Q12H 4. ,BMP in am. 5. Cont Ensure 1 Can TID 6. PT Evaluation 7. Transfer to [facility]. Margie Johnston MD Apr 15, 2017 12:52
--- NOTE | 2017-04-15 17:33 | HHI.CCPN ---
Subjective Remarks/Hospital Course This is a 72-year-old female who is brought to the emergency department by EMS because of shortness of breath. Patient is intubated and sedated at this time. Information was taken from medical records, nursing staff , ER physician. Records indicate that the patient was tripoding with audible wheeze. When she was in the ambulance he went unconscious and had assist ventilations with bag valve mask. Upon arrival her eyes are closed, she was nonverbal with agonal respirations. Patient was adequately intubated for respiratory support. Upon further evaluation and discussion with the ER physician. The patient's name is Roxanna Harris. Her primary medical doctor Dr. Dumont. Her roller print tender Dr. Johnston. Patient has history of COPD, lung status, and has had previous admissions with intubation due to chronic obstructive pulmonary disease exacerbations. The patient does continue to still smoke. Recently she has had a cough with cold symptoms. On presentation the patient was in atrial fibrillation with RVR and patient was administered Cardizem, however heart rate controlled this time. Blood pressure is too low for maintenance of Cardizem drip due to propofol. Will adjust patient to accommodate sedation and blood pressure. ER physician notified critical care team who graciously accepted the patient to their service. Patient be transferred to the main ICU for continued care and management. 04/09 Patient is on Diprivan and Fentanyl drip however she is awake. Afebrile. On Cardizem drip 5mg/hr 04/10 No events overnight. Awake and alert on CPAP with PS 10, PEEP:5 FIO2 40%. Off Cardizem drip. 04/11 Patient s/p extubation yesterday on 2L oxygen with good sats. Used BIPAP intermittently overnight. 04/12 Patient is on BIPAP 10/5 with 50% FIO2 , hypertensive. 04/13 Patient was on BIPAP overnight. Afebrile. 04/14: Afebrile. Currently on 2-4 L nasal cannula. Tolerating diet. Subjective 04/15: Afebrile. Currently on 3 L nasal cannula. Ambulated today. No new complaints. Objective Vital Signs Date Time Temp Pulse Resp B/P (MAP) Pulse Ox O2 Delivery O2 Flow Rate FiO2 04/15/17 16:39 97.6 63 18 163/72 (102) 97 04/15/17 08:11 Nasal Cannula 3.00 04/13/17 08:00 40 Intake and Output 04/15/17 04/15/17 04/16/17 08:00 16:00 00:00 Intake Total 120 ml Balance 120 ml Result Diagram: 04/15/17 0825 04/15/17 0547 Other Results Microbiology Date/Time Source Procedure Growth Status 04/08/17 13:32 Blood Peripheral Aerobic Blood Culture - Final NO GROWTH IN 5 DAYS Complete 04/08/17 13:32 Blood Peripheral Anaerobic Blood Culture - Final NO GROWTH IN 5 DAYS Complete 04/09/17 12:30 Stool Stool Stool Occult Blood (VENANCIO) - Final HEMOCCULT POSITIVE Complete 04/08/17 16:21 Sputum Endotracheal Gram Stain - Final Complete 04/08/17 16:21 Sputum Endotracheal Sputum Culture - Final HEAVY GROWTH NORMAL RESPIRATORY JULIET Complete Imaging Last Impressions Chest X-Ray 04/15/17 0000 Signed Impressions: Service Date/Time: March 03:47 - CONCLUSION: Stable patchy infiltrates upper and lower left lung. Jesus Perez MD Liver Ultrasound 04/09/17 0000 Signed Impressions: Service Date/Time: Sunday, April 09, 2017 10:48 - CONCLUSION: Surgical absence of gallbladder. Multiple bilateral renal cysts. Liver appears lower limits of normal in size with mildly increased echogenicity but no evidence of dilated ducts or focal lesion. small right pleural effusion Wolfgang Dooley MD Objective Remarks GENERAL: Patient is 71 yo sitting resting in bed in no acute distress SKIN: Warm and dry. No rash HEAD: Normocephalic. EYES: No scleral icterus. No injection or drainage. NECK: Supple, trachea midline. No JVD or lymphadenopathy. CARDIOVASCULAR: Tachycardia, IR. S1, S2 no S4. Without murmurs, gallops, or rubs. RESPIRATORY: Breath sounds equal bilaterally. No accessory muscle use. Overall diminished GASTROINTESTINAL: Abdomen soft, non-tender, nondistended. MUSCULOSKELETAL: No new skin peripheral edema. Neuro: Awake. Cranial nerves II through XII appear grossly intact. Strength is equal symmetric. Normal sensation A/P Assessment and Plan NEUROLOGY/PSYCH Currently in acetaminophen 650 mg by mouth every 6 hours when necessary fever/ pain 1-5 Awake and alert PULMONOLOGY Acute hypoxic/hypercapnic respiratory failure Chronic obstructive pulmonary disease Continue with oxygen keep sat >92% Albuterol/ipratropium aerosols every 6 hours and albuterol aerosols every 2 hours as needed Budesonide/formoterol 160/4.5 2 puffs twice a day Pulm is following-Dr. Johnston, Methylprednisolone succinate 40 mg IV every 12 hours NIPPV for resp distress CXR ordered for a.m. 04/15 CARDIOLOGY Mild elevated trop Atrial fibrillation Hypertension Monitor HR and BP keep MAP>65mmHg Continue with metoprolol succinate 50mg Q12, lisinopril 10mg BID, ASA 162ng daily, diltiazem 60mg Q6 Cards has followed Dr. Ruano. Echo showed EF 50-55%, small-mod apical akinesis. PAP 34.4 mmHg Patient declines anticoagulation therapy as she reports severe bleeding problems with them in the past. GASTROENTEROLOGY Elevated transaminases Monitor LFT's (trending down), US liver: Surgical absence of gallbladder. Multiple bilateral renal cysts. Liver appears lower limits of normal in size with mildly increased echogenicity but no evidence of dilated ducts or focal lesion. small right pleural effusion Hepatitis profile pending. On PO diet Famotidine for GI protection Docusate sodium/senna 1 tablet twice a day for bowel regimen GENITOURINARY/FEN Hyponatremia- Resolved Monitor renal function, ICU electrolyte replacement protocol INFECTIOUS DISEASE Continue with levofloxacin for COPD exac to finish 7 day course ( 04/08-04/14) Influenza testing is negative Sputum culture -normal resp juliet 04/08: NGTD ENDOCRINOLOGY Hyperglycemia Accu-Cheks with sliding scale insulin Novulin R with Accu-Cheks before meals/at bedtime HEMATOLOGY Thrombocytopenia History of bladder cancer History of non-small cell carcinoma of the lung History of breast cancer status post chemotherapy Monitor CBC, Hemoccult positive GI has followed patient however patient refused EGD and colonoscopy. Requesting Dr. Payne outpatient follow-up. PROPHYLAXIS DVT prevention with sequential compression devices,subQ heparin resume GI protection with by mouth Pepcid LINES Peripheral IVs CODE STATUS Full code Level 2 follow-up.. Patient is stable from a critical care medicine standpoint. Assign care to hospitalist in a.m. 04/16. Located onset ICU Roman Moralez MD Apr 15, 2017 17:33
[2017-04-15] MEDS: LEVOFLOXACIN 750 MG PREMIX INJ 150 ML IV SCH (17:34)
[2017-04-15] MEDS: METOPROLOL TARTRATE 50 MG TAB PO SCH (20:32)
[2017-04-15] MEDS: HEPARIN SODIUM - SQ 10,000 UNITS/ML VIAL SQ SCH (20:33)
[2017-04-16] VITALS (9 sets, daily range): BP systolic 146–167; BP diastolic 65–77; PULSE 60–75; RESP 16–20; TEMP 97.3–98.3; O2SAT 92–99
[2017-04-16] MEDS: DILTIAZEM HCL 60 MG TAB PO SCH ×4 (02:49→22:33)
[2017-04-16] MEDS: RESP: ALBUTEROL 2.5 MG/3 ML NEB (PRN) NEB ×2 (02:53→12:02)
[2017-04-16] MEDS: CHLORHEXIDINE GLUCONATE 2 % 1 PACK (2 CLOTHS) TOP SCH (04:00)
[2017-04-16] MEDS: CHLORHEXIDINE 0.12% (ORAL KIT) 15 ML CUP MT SCH ×2 (08:00→20:00)
[2017-04-16 08:28] LABS: AUTOMATED NEUTROPHIL # 7.5 TH/MM3 (1.8-7.7); BASOPHIL % 0.3 % (0.0-2.0); HEMATOCRIT 34.5 % (35.0-46.0); HEMOGLOBIN 11.8 GM/DL (11.6-15.3); LYMPH % 2.7 % (9.0-44.0); LYMPHOCYTE # 0.2 TH/MM3 (1.0-4.8); MEAN CELL VOLUME 85.7 FL (80.0-100.0); MEAN CORPUSCULAR HEMOGLOBIN 29.3 PG (27.0-34.0); MEAN CORPUSCULAR HGB CONC 34.1 % (32.0-36.0); MEAN PLATELET VOLUME 9.7 FL (7.0-11.0); MONO % 4.3 % (0.0-8.0); MONOCYTE # 0.3 TH/MM3 (0-0.9); NEUT % 92.7 % (16.0-70.0); PLATELET COUNT 139 TH/MM3 (150-450); RED BLOOD COUNT 4.03 MIL/MM3 (4.00-5.30); RED CELL DISTRIBUTION WIDTH 14.5 % (11.6-17.2); WHITE BLOOD COUNT 8.1 TH/MM3 (4.0-11.0)
[2017-04-16] MEDS: RESP: ALBUTEROL 2.5 MG/IPRATROPIUM 0.5 MG NEB (SCH) NEB ×3 (08:33→20:45)
[2017-04-16 08:45] LABS: ALBUMIN 2.9 GM/DL (3.4-5.0); ALT (GPT) 40 U/L (10-53); AST (GOT) 19 U/L (15-37); BICARBONATE 32.9 MEQ/L (21.0-32.0); CALCIUM 8.8 MG/DL (8.5-10.1); CHLORIDE 99 MEQ/L (98-107); CREATININE 0.61 MG/DL (0.50-1.00); GLOMERULAR FILTRATION RATE 96 ML/MIN (>89); GLUCOSE,RANDOM 167 MG/DL (74-106); SODIUM (NA) 140 MEQ/L (136-145)
[2017-04-16 08:48] LABS: ALKALINE PHOSPHATASE 62 U/L (45-117); TOTAL BILIRUBIN ADULT 0.5 MG/DL (0.2-1.0); TOTAL PROTEIN 6.2 GM/DL (6.4-8.2)
[2017-04-16 08:50] LABS: BLOOD UREA NITROGEN 31 MG/DL (7-18)
[2017-04-16] MEDS: DOCUSATE SODIUM 50 MG/SENNA 8.6 MG TAB PO SCH ×2 (09:00→22:33)
[2017-04-16 09:19] LABS: BANDS 4 % (0-6); LYMPHOCYTES 5 % (9-44); MONOCYTES 9 % (0-8); MYELOCYTES 2 % (0-0); POLYS (SEG NEUTROPHILS) 80 % (16-70)
[2017-04-16] MEDS: METOPROLOL TARTRATE 50 MG TAB PO SCH ×2 (09:25→22:33)
[2017-04-16] MEDS: ASPIRIN 81 MG CHEW TAB NG SCH (09:26)
[2017-04-16] MEDS: ENALAPRIL MALEATE 10 MG TAB PO SCH ×2 (09:26→22:33)
[2017-04-16] MEDS: methylPREDNISolone SOD SUCC 40 MG/1 ML VIAL IV PUSH SCH (09:27)
[2017-04-16] MEDS: HEPARIN SODIUM - SQ 10,000 UNITS/ML VIAL SQ SCH ×2 (09:27→22:33)
[2017-04-16] MEDS: BUDESONIDE-FORMOTEROL 160/4.5 MCG INHALER INH SCH ×2 (09:28→22:34)
[2017-04-16] MEDS: INSULIN NovoLIN REGULAR SUPPLEMENTAL SCALE SQ SCH ×4 (09:28→22:35)
[2017-04-16] MEDS: SODIUM CHLORIDE 0.9% FLUSH 10 ML FLUSH IV FLUSH SCH ×2 (09:29→22:34)
--- NOTE | 2017-04-16 14:33 | HHI.PR ---
Subjective Remarks Follow-up respiratory failure, COPD. The patient states that she feels much better. She is still requiring oxygen, 3 L per nasal cannula. She uses oxygen at home, but only at night. She denies chest pain. She does have a mild sore throat that started today. Objective Vitals Vital Signs Date Time Temp Pulse Resp B/P (MAP) Pulse Ox O2 Delivery O2 Flow Rate FiO2 04/16/17 13:02 97.4 68 16 164/72 (102) 99 04/16/17 08:39 97.8 63 16 157/72 (100) 94 04/16/17 08:36 95 Nasal Cannula 3.00 04/16/17 05:11 97.3 60 18 162/77 (105) 97 04/16/17 02:56 96 Nasal Cannula 3.00 04/16/17 00:59 97.8 60 18 157/74 (101) 97 04/15/17 21:57 94 Nasal Cannula 3.00 04/15/17 21:02 97.4 89 18 160/70 (100) 94 04/15/17 20:00 61 04/15/17 19:40 Nasal Cannula 3.00 04/15/17 16:39 97.6 63 18 163/72 (102) 97 I/O 04/15/17 04/15/17 04/15/17 04/16/17 04/16/17 04/16/17 07:00 15:00 23:00 07:00 15:00 23:00 Intake Total 120 ml 150 ml Balance 120 ml 150 ml Intake Oral 120 ml IV Total 150 ml # Voids 2 1 # Bowel Movements 1 1 Result Diagram: 04/16/17 0643 04/16/17 0643 Imaging Last Impressions Chest X-Ray 04/15/17 0000 Signed Impressions: Service Date/Time: March 03:47 - CONCLUSION: Stable patchy infiltrates upper and lower left lung. Jeuss Perez MD Liver Ultrasound 04/09/17 0000 Signed Impressions: Service Date/Time: Sunday, April 09, 2017 10:48 - CONCLUSION: Surgical absence of gallbladder. Multiple bilateral renal cysts. Liver appears lower limits of normal in size with mildly increased echogenicity but no evidence of dilated ducts or focal lesion. small right pleural effusion Wolfgang Dooley MD Objective Remarks General: No acute distress. Ambulating in her room. Heart: Regular rate and rhythm. No murmur. Lungs: Diminished breath sounds throughout. Very mild scattered wheeze. Breathing is nonlabored. Abdomen: Soft, nontender, nondistended. Extremities: No lower extremity edema. Psych: Alert and oriented. Procedures None Urinary Catheter: No Vascular Central Line Catheter: No A/P Problem List: (1) Acute respiratory failure with hypoxia and hypercapnia ICD Code: J96.01 - Acute respiratory failure with hypoxia; J96.02 - Acute respiratory failure with hypercapnia (2) Atrial fibrillation with RVR ICD Code: I48.91 - Unspecified atrial fibrillation (3) Chronic obstructive pulmonary disease ICD Code: J44.9 - Chronic obstructive pulmonary disease, unspecified (4) Metabolic acidosis ICD Code: E87.2 - Acidosis (5) Lactic acidosis ICD Code: E87.2 - Acidosis (6) Hyperglycemia ICD Code: R73.9 - Hyperglycemia, unspecified Assessment and Plan 1. Acute hypoxic and hypercapnic respiratory failure: Secondary to COPD exacerbation. Appreciate pulmonology recommendations. Continue supplemental oxygen per nasal cannula. Continue Gillis dilators. Continue steroids. Completed course of Levaquin. 2. COPD with exacerbation: Continue steroids, bronchodilators, oxygen. Appreciate pulmonology recommendations. 3. Mildly elevated troponin: Appreciate cardiology recommendations. Continue medical management. 4. Atrial fibrillation: Continue metoprolol, aspirin, diltiazem. 5. Elevated transaminases: Trending down, now within normal limits. Liver ultrasound shows surgical absence of the gallbladder. Liver appears lower limits of normal in size with mildly increased echogenicity but no evidence of dilated ducts or focal lesion. Hepatitis panel negative. 6. GI prophylaxis: Famotidine. 7. Hypertension: Continue metoprolol, lisinopril, diltiazem. 8. Hyponatremia: Resolved. 9. DVT prophylaxis: Heparin. Discharge Planning Possible discharge home tomorrow if okay with pulmonology. Karlo Talbot MD Apr 16, 2017 14:33
--- NOTE | 2017-04-16 14:34 | HHI.FF ---
Face to Face Verification Diagnosis: (1) Elevated troponin (2) Acute respiratory failure with hypoxia and hypercapnia (3) Atrial fibrillation with RVR (4) Chronic obstructive pulmonary disease Physical Therapy Order: Evaluate and Treat Home Health Nursing Order: Nursing assessment with vital signs I have seen patient Roxanna Harris on 04/16/17. My clinical findings support the need for the requested home health care services because: Patient has SOB I certify that my clinical findings support that this patient is homebound because: Hx COPD- exertion dyspnea/weakness Karlo Talbot MD Apr 16, 2017 14:34
[2017-04-16] MEDS ORDERED: PRED10PA2 PO (14:43)
[2017-04-16] MEDS ORDERED: METO-309 PO (14:43)
[2017-04-16] MEDS ORDERED: Budeson-Formot 160-4.5 Mcg Inh INH (14:43)
[2017-04-16] MEDS ORDERED: CARD240C6 PO (14:43)
[2017-04-16] MEDS ORDERED: Albuterol Neb NEB (14:43)
[2017-04-16] MEDS ORDERED: ENAL10TA PO (14:43)
[2017-04-16] MEDS ORDERED: BENZOCAINE-MENTHOL (SUGAR FREE) 15 MG-3.6 MG LOZENGE BUCCAL PRN (14:45)
[2017-04-16] MEDS: ALPRAZolam 0.25 MG TAB PO PRN (18:43)
--- NOTE | 2017-04-16 20:41 | HHI.PR ---
Subjective Remarks Alert and is up .On O2 N/C 3 L today and sats are 97. No SoB at rest. Able to walk with help.Threw up bloody liquid. Objective Vital Signs Date Time Temp Pulse Resp B/P (MAP) Pulse Ox O2 Delivery O2 Flow Rate FiO2 04/16/17 16:41 98.3 75 16 167/77 (107) 96 04/16/17 13:02 97.4 68 16 164/72 (102) 99 04/16/17 08:39 97.8 63 16 157/72 (100) 94 04/16/17 08:36 95 Nasal Cannula 3.00 04/16/17 07:00 96 Nasal Cannula 3.00 04/16/17 05:11 97.3 60 18 162/77 (105) 97 04/16/17 02:56 96 Nasal Cannula 3.00 04/16/17 00:59 97.8 60 18 157/74 (101) 97 04/15/17 21:57 94 Nasal Cannula 3.00 04/15/17 21:02 97.4 89 18 160/70 (100) 94 I/O 04/15/17 04/15/17 04/15/17 04/16/17 04/16/17 04/16/17 07:00 15:00 23:00 07:00 15:00 23:00 Intake Total 120 ml 150 ml 480 ml Balance 120 ml 150 ml 480 ml Intake Oral 120 ml 480 ml IV Total 150 ml # Voids 2 1 2 # Bowel Movements 1 1 Result Diagram: 04/16/17 0643 04/16/17 0643 Objective Remarks GENERAL: This is an elderly averagely built white female is alert and in no distress HEAD, EYES, EARS, NOSE, THROAT: Head normocephalic. The pupils are reactive and equal. Tongue is moist. Throat was clear. Nasal mucosa clear. Ears have no inflammation. NECK: The neck has no bruits or thyroid enlargement. No lymphadenopathy. CHEST: Equal movements with percussion note resonant .Occ Basal crackles. Expiratory wheezes scattered. HEART: Heart sounds are irregular. S1-S2. No murmur. ABDOMEN: Abdomen soft and protuberant without masses. No organomegaly or tenderness. The bowel sounds are active. EXTREMITIES: No edema. No calf tenderness. NEUROLOGIC: Reflexes are 1+ with no gross motor deficits. SKIN: No lesions. Assessment and Plan Assessment and Plan IMPRESSION: 1. Resolved acute respiratory failure with hypercapnia and hypoxia. 2. Severe COPD with emphysema. 3. History of atrial fibrillation and rapid ventricular response. 4. COPD with emphysema. 5. History of breast cancer and lung cancer. Plan : 1. Continue on O2 3 L 2. Antibiotics as ordered 3. D/C Solumedrol 4. Add prednisone 10 mg bid 5. Cont Ensure 1 Can TID 6. PT Evaluation 7. Home soon Margie Johnston MD Apr 16, 2017 20:41
[2017-04-16] MEDS ORDERED: predniSONE 20 MG TAB PO SCH (21:00)
[2017-04-16] MEDS: predniSONE 20 MG TAB PO SCH (22:33)
[2017-04-17 00:48] VITALS: BP 171/76; PULSE 70; RESP 20; TEMP 97.5; O2SAT 92
[2017-04-17] MEDS: CHLORHEXIDINE GLUCONATE 2 % 1 PACK (2 CLOTHS) TOP SCH (03:18)
[2017-04-17] MEDS: DILTIAZEM HCL 60 MG TAB PO SCH (03:18)
[2017-04-17] MEDS: RESP: ALBUTEROL 2.5 MG/3 ML NEB (PRN) NEB (04:34)
[2017-04-17 04:54] VITALS: O2SAT 97
[2017-04-17 05:56] VITALS: BP 174/74; PULSE 63; RESP 20; TEMP 97.7; O2SAT 95
[2017-04-17] MEDS ORDERED: ENALAPRILAT 1.25 MG/ML VIAL IV PUSH PRN (07:45)
[2017-04-17 08:00] VITALS: BP 174/76; PULSE 61; RESP 18; TEMP 98; O2SAT 94
[2017-04-17] MEDS: INSULIN NovoLIN REGULAR SUPPLEMENTAL SCALE SQ SCH ×2 (08:00→11:31)
[2017-04-17] MEDS: CHLORHEXIDINE 0.12% (ORAL KIT) 15 ML CUP MT SCH (08:00)
[2017-04-17] MEDS: RESP: ALBUTEROL 2.5 MG/IPRATROPIUM 0.5 MG NEB (SCH) NEB ×2 (08:57→13:03)
[2017-04-17] MEDS ORDERED: DILTIAZEM-CD 240 MG CAP ER PO SCH (09:00)
[2017-04-17] MEDS: SODIUM CHLORIDE 0.9% FLUSH 10 ML FLUSH IV FLUSH SCH (09:00)
[2017-04-17] MEDS: DOCUSATE SODIUM 50 MG/SENNA 8.6 MG TAB PO SCH (09:00)
[2017-04-17] MEDS: predniSONE 20 MG TAB PO SCH (09:00)
[2017-04-17] MEDS: ASPIRIN 81 MG CHEW TAB NG SCH (09:27)
[2017-04-17] MEDS: HEPARIN SODIUM - SQ 10,000 UNITS/ML VIAL SQ SCH (09:28)
[2017-04-17] MEDS: ENALAPRIL MALEATE 10 MG TAB PO SCH (09:28)
[2017-04-17] MEDS: METOPROLOL TARTRATE 50 MG TAB PO SCH (09:28)
[2017-04-17] MEDS: BUDESONIDE-FORMOTEROL 160/4.5 MCG INHALER INH SCH (09:31)
[2017-04-17 10:23] VITALS: O2SAT 97
--- NOTE | 2017-04-17 10:53 | HHI.DCPOC ---
Discharge Care Plan Diagnosis: (1) Elevated troponin (2) Acute respiratory failure with hypoxia and hypercapnia (3) Chronic obstructive pulmonary disease (4) Paroxysmal atrial fibrillation Goals to Promote Your Health * To prevent worsening of your condition and complications * To maintain your health at the optimal level Directions to Meet Your Goals Take your medications as prescribed Follow your dietary instruction Follow activity as directed Keep your appointments as scheduled Take your immunizations and boosters as scheduled If your symptoms worsen call your PCP, if no PCP go to Urgent Care Center or Emergency Room Smoking is Dangerous to Your Health. Avoid second hand smoke Call the 24-hour hour crisis hotline for domestic abuse at Karlo Talbot MD Apr 17, 2017 10:53
--- NOTE | 2017-04-17 10:57 | HHI.DS ---
cc: Aleksandr Dumont MD Discharge Summary Admission Date Apr 08, 2017 at 14:41 Discharge Date: Apr 17, 2017 Admitting Diagnosis respiratory failure, lactic acidosis, COPD exacerbation, A. fib RVR (1) Acute respiratory failure with hypoxia and hypercapnia ICD Code: J96.01 - Acute respiratory failure with hypoxia; J96.02 - Acute respiratory failure with hypercapnia Diagnosis: Principal (2) Atrial fibrillation with RVR ICD Code: I48.91 - Unspecified atrial fibrillation Diagnosis: Principal (3) Chronic obstructive pulmonary disease ICD Code: J44.9 - Chronic obstructive pulmonary disease, unspecified Diagnosis: Principal (4) Metabolic acidosis ICD Code: E87.2 - Acidosis Diagnosis: Principal (5) Lactic acidosis ICD Code: E87.2 - Acidosis Diagnosis: Principal (6) Hyperglycemia ICD Code: R73.9 - Hyperglycemia, unspecified Diagnosis: Principal Procedures None Brief History - From Admission Is a 72-year-old female who is brought to the emergency department by EMS because of shortness of breath. Patient is intubated and sedated at this time. Information was taken from medical records, nursing staff, ER physician. Records indicate that the patient was tripoding with audible wheeze. When she was in the ambulance he went unconscious and had assist ventilations with bag valve mask. Upon arrival her eyes are closed, she was nonverbal with agonal respirations. Patient was adequately intubated for respiratory support. Upon further evaluation and discussion with the ER physician. The patient's name is Roxanna Contreras Steven. Her primary medical doctor Dr. Dumont. Her private client advisor Dr. Johnston. Patient has history of COPD, lung status, and has had previous admissions with intubation due to chronic obstructive pulmonary disease exacerbations. The patient does continue to still smoke. Recently she has had a cough with cold symptoms. On presentation the patient was in atrial fibrillation with RVR and patient was administered Cardizem, however heart rate controlled this time. Blood pressure is too low for maintenance of Cardizem drip due to propofol. Will adjust patient to accommodate sedation and blood pressure. ER physician notified critical care team who graciously accepted the patient to their service. Patient be transferred to the main ICU for continued care and management. CBC/BMP: 04/16/17 0643 04/16/17 0643 Significant Findings Laboratory Tests Test 04/15/17 05:47 04/15/17 08:25 04/16/17 06:43 Blood Urea Nitrogen 32 MG/DL (7-18) 31 MG/DL (7-18) Random Glucose 240 MG/DL (74-106) 167 MG/DL (74-106) Total Protein 5.9 GM/DL (6.4-8.2) 6.2 GM/DL (6.4-8.2) Albumin 2.7 GM/DL (3.4-5.0) 2.9 GM/DL (3.4-5.0) Estimat Glomerular Filtration Rate 81 ML/MIN (>89) Platelet Count 142 TH/MM3 (150-450) 139 TH/MM3 (150-450) Neutrophils (%) (Auto) 90.7 % (16.0-70.0) 92.7 % (16.0-70.0) Lymphocytes (%) (Auto) 3.3 % (9.0-44.0) 2.7 % (9.0-44.0) Neutrophils # (Auto) 7.9 TH/MM3 (1.8-7.7) Lymphocytes # (Auto) 0.3 TH/MM3 (1.0-4.8) 0.2 TH/MM3 (1.0-4.8) Hematocrit 34.5 % (35.0-46.0) Neutrophils % (Manual) 80 % (16-70) Lymphocytes % 5 % (9-44) Monocytes % 9 % (0-8) Myelocytes 2 % (0-0) Platelet Estimate LOW (NORMAL) Basophilic Stippling FAINT (NORMAL) Carbon Dioxide Level 32.9 MEQ/L (21.0-32.0) Imaging Last Impressions Chest X-Ray 04/15/17 0000 Signed Impressions: Service Date/Time: March 03:47 - CONCLUSION: Stable patchy infiltrates upper and lower left lung. Jesus Perez MD Liver Ultrasound 04/09/17 0000 Signed Impressions: Service Date/Time: Sunday, April 09, 2017 10:48 - CONCLUSION: Surgical absence of gallbladder. Multiple bilateral renal cysts. Liver appears lower limits of normal in size with mildly increased echogenicity but no evidence of dilated ducts or focal lesion. small right pleural effusion Wolfgang Dooley MD PE at Discharge General: No acute distress. Sitting up in a chair. Heart: Regular rate and rhythm. No murmur. Lungs: Diminished breath sounds throughout. Very mild scattered wheeze. Breathing is nonlabored. Abdomen: Soft, nontender, nondistended. Extremities: No lower extremity edema. Psych: Alert and oriented. Pt update on day of discharge Patient states that she feels okay today. She does feel ready to go home. Shortness of breath continues to improve. She states that her cough has become productive and she feels like she is able to clear out some of the congestion. Hospital Course The patient was admitted for management of acute respiratory failure secondary to COPD. She was admitted to the critical care service, intubated, and placed on mechanical ventilation. Pulmonology was consulted. She had elevated troponin and was noted to be in atrial fibrillation with RVR. Cardiology was consulted. 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 The patient was weaned from sedation. She was extubated and transitioned to oxygen per nasal cannula. She was transferred out of the intensive care unit. She continued to improve clinically. She was transitioned from IV steroids to oral prednisone. She was felt to be stable for discharge home with home health care for physical therapy. Pt Condition on Discharge: Stable Discharge Disposition: Disch w/ Home Health Serv Discharge Time: > 30 minutes Discharge Instructions DIET: Follow Instructions for: As Tolerated, No Restrictions Speech Therapy-Diet Recommends: Mechanical Soft Activities you can perform: Regular-No Restrictions Follow up Referrals: Cardiology - 1 Week PCP Follow-up - 1 Week Pulmonology - 1 Week with Margie Johnston MD New Medications: Diltiazem CD 24 HR (Cardizem CD 24 HR) 240 Mg Caper 240 MG PO DAILY for Blood Pressure Management, #30 CAP 0 Refills Prednisone (48) 10 mg tab Dose Pack (Prednisone (48) 10 mg tab Dose Pack) 10 Mg Dspk 10 MG PO DIRECTED for Inflammation, #1 DSPK 0 Refills Enalapril (Enalapril) 10 Mg Tab 10 MG PO BID for Blood Pressure Management, #30 TAB 0 Refills Metoprolol Tartrate (Lopressor) 50 Mg Tab 50 MG PO Q12HR for Blood Pressure Management, #60 TAB 0 Refills [Albuterol Neb] () 2.5 MG/3 ML NEBU 2.5 MG NEB Q2HR NEB PRN for dyspnea for 30 Days, #100 NEBULE 0 Refills [Budeson-Formot 160-4.5 Mcg Inh] () 60 PUFF AERO 2 PUFF INH Q12HR for COPD, #1 INHALER 0 Refills Karlo Talbot MD Apr 17, 2017 10:57
[2017-04-17 12:00] VITALS: BP 155/67; PULSE 59; RESP 18; TEMP 97.8; O2SAT 98
== END 2017-04-17 15:30 | disposition home health service (06) | DRG 208 ==
LOC: PHED 13:02 → PHEDA 14:41 → EDBD 14:41 → HIMN 21:55 → N05B 04-15 14:07
PROVIDERS: ADMIT Family Medicine; ATTEND Family Medicine
PROC: 5A1945Z Respiratory Ventilation, 24-96 Consecutive Hours (ICD-10-PCS; principal; 2017-04-08)
PROC: 0BH17EZ Insertion of Endotracheal Airway into Trachea, Via Natural or Artificial Opening (ICD-10-PCS; 2017-04-08)
DX: J96.01 Acute respiratory failure with hypoxia (principal); J96.02 Acute respiratory failure with hypercapnia; E87.2 Acidosis; J44.1 Chronic obstructive pulmonary disease with (acute) exacerbation; E87.1 Hypo-osmolality and hyponatremia; I48.91 Unspecified atrial fibrillation; D69.6 Thrombocytopenia, unspecified; Z95.0 Presence of cardiac pacemaker; R19.5 Other fecal abnormalities; F17.210 Nicotine dependence, cigarettes, uncomplicated; R73.9 Hyperglycemia, unspecified; N28.1 Cyst of kidney, acquired; I10 Essential (primary) hypertension; R79.89 Other specified abnormal findings of blood chemistry; Z92.3 Personal history of irradiation; Z92.21 Personal history of antineoplastic chemotherapy; Z85.3 Personal history of malignant neoplasm of breast; Z85.51 Personal history of malignant neoplasm of bladder
CPT/HCPCS: 31500; 36600; 51702; 71045; 76705; 76937; 80053; 80074; 82272; 82550; 82805; 82948; 83605; 83735; 83880; 84100; 84484; 85007; 85025; 85027; 85610; 85730; 87040; 87070; 87205; 87641; 87804; 93005; 93306; 94002; 94003; 94640; 94664; 96365; 96375; J0330; J0360; J1644; J1956; J2060; J2405; J2920; J2930; J3010; J7030; J7512; J7608; J7613